=== PATIENT | male | born 1955 | race Caucasian/White ===

== ENCOUNTER 2018-02-17 17:38 | Emergency (ER) | payer OTHER ==
[~2018-02-17] VITALS: Ht 167.6 cm; Wt 81.6 kg
[2018-02-17 19:26] LABS: BASOPHILS % 0.7 % (0.0-1.0); EOSINOPHILS # (AUTO) 0.2 (0.0-0.4); EOSINOPHILS % 3.1 % (0.0-6.0); HEMATOCRIT 35.7 % (38.2-49.6); HEMOGLOBIN 11.4 g/dL (14.0-18.0); LYMPHOCYTES # (AUTO) 2.3 (1.0-3.2); LYMPHOCYTES % 37.7 % (18.0-39.1); MEAN CORPUSCULAR HEMOGLOBIN 29.9 pg (28-32); MEAN CORPUSCULAR HGB CONC 31.9 g/dL (31-35); MEAN CORPUSCULAR VOLUME 93.7 fL (81-99); MONOCYTES # (AUTO) 0.9 (0.2-0.8); NEUTROPHILS # (AUTO) 2.6 (2.1-6.9); NEUTROPHILS % 42.4 % (38.7-80.0); PLATELET COUNT 310 x10e3/uL (140-360); RED BLOOD COUNT 3.81 x10e6/uL (4.3-5.7); RED CELL DISTRIBUTION WIDTH 14.7 % (11.7-14.4)
[2018-02-17 19:29] LABS: BILIRUBIN,URINE NEGATIVE (NEGATIVE); CLARITY,URINE CLEAR (CLEAR); COLOR,URINE YELLOW (YELLOW); KETONES,URINE NEGATIVE (NEGATIVE); LEUKOCYTE ESTERASE ,URINE NEGATIVE (NEGATIVE); NITRITE,URINE NEGATIVE (NEGATIVE); PROTEIN,URINE DIPSTICK NEGATIVE (NEGATIVE); URINE UROBILINOGEN 0.2 mg/dL (0.2 - 1)
[2018-02-17 19:47] LABS: ALBUMIN/GLOBULIN RATIO 1.3 (0.8-2.0); ANION GAP 14.5 mmol/L (8-16); CALCIUM 9.5 mg/dL (8.4-10.2); CREATININE, SERUM 2.14 mg/dL (0.72-1.25); POTASSIUM 4.5 mmol/L (3.5-5.1)
[2018-02-17 21:31] VITALS: BP 146/85
== END 2018-02-17 21:39 | disposition home or self-care (01) ==
LOC: ER 17:38
DX: E86.0 Dehydration (principal); N17.9 Acute kidney failure, unspecified
CPT/HCPCS: 36415; 80053; 81001; 85025; 99283

== ENCOUNTER 2019-02-06 22:03 | Inpatient (IN) | payer MEDICARE, OTHER ==
[~2019-02-06] VITALS: Ht 167.6 cm; Wt 81.6 kg
[2019-02-06] MEDS ORDERED: SODIUM CHLORIDE 0.9% 1000ML 1,000 ML IV STA ×2 (22:06→22:52)
--- OUTSIDE RECORDS SUMMARY | 2019-02-06 22:06 | XMS REPORT | Clinical Summary ---
Author Author ARIELA [facility] Address Unknown Phone Unavailable Care Team Providers Care Cartography Teacher Name Role Phone Kun PCP Allergies No Known Allergies Medications End Date Status Medication Sig Dispensed Refills Start Date Active fenofibrate Take 160 mg 0 (TRIGLIDE,LOFIBRA) 160 MG by mouth tablet daily. Active amLODIPine (NORVASC) 5 MG Take 1 tablet 30 tablet 3 tablet (5 mg total) 6 by mouth daily. Active lisinopril Take 1 tablet 30 tablet 3 (PRINIVIL,ZESTRIL) 20 MG (20 mg total) 6 tablet by mouth daily. Active pantoprazole (PROTONIX) Take 1 tablet 60 tablet 3 40 MG tablet (40 mg total) 6 by mouth 2 (two) times daily. Active Problems Problem Noted Date Lumbar disc herniation 03/18/2016 Lumbar stenosis 03/18/2016 Spondylolisthesis of lumbar region 03/18/2016 Spondylolisthesis, lumbar region 03/18/2016 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, chronic 11/08/2015 PUD (peptic ulcer disease) 11/08/2015 ATN (acute tubular necrosis) 11/06/2015 Syncope 11/04/2015 Bradycardia 11/04/2015 Hypotension 11/04/2015 Acute renal failure (ARF) 11/04/2015 Family History Medical History Relation Name Comments Cancer Father Heart disease Mother Relation Name Status Comments Father Mother Social History Date Tobacco Use Types Packs/Day Years Used Quit: 03/18/1975 Former Smoker Smokeless Tobacco: Snuff Current User Comments: occassinally Alcohol Use Drinks/Week oz/Week Comments Yes socially Sex Assigned at Date Recorded Not on file Industry Job Start Date Occupation Not on file Not on file Not on file Travel End Travel History Travel Start No recent travel history available. Last Filed Vital Signs Not on file Plan of Treatment Not on file Implants Device Identifier Shelf Expiration Date Model / Serial / Lot Implanted Type Area Manufactur er 06/24/2017 [id number] / / [id number] Matrix Floseal Hemo W/O Ndl 10 Cement/Mandeep Left: Spine ARAUJO:BIO [id number] - [id number] ler/Adhesi Lumbar SCI Implanted: Qty: 2 on 03/18/2016 by Virginia Miller RN [id number] / / [id number] Screw Spine Left: Back [employer] Implanted: Qty: 6 on 03/18/2016 by Cayden Pichardo MD [id number] / / [id number] Oracio Spine Left: Back [employer] Implanted: Qty: 1 on 03/18/2016 by Cayden Pichardo MD [id number] / / Set Screw Spine Left: Back [employer] Implanted: Qty: 6 on 03/18/2016 by Cayden Pichardo MD 10/11/2023 [id number] / / [id number] Interbody Device Spine Left: Back [employer] Implanted: Qty: 1 on 03/18/2016 by Cayden Pichardo MD 11/12/2023 [id number] / / [id number] Interbody Device Spine Left: Back [employer] Implanted: Qty: 1 on 03/18/2016 by Cayden Pichardo MD [id number] / / [id number] Oracio Spine Left: Back [employer] Implanted: Qty: 1 on 03/18/2016 by Cayden Pichardo MD 10/11/2017 [id number] / [id number] / Orthobend Spinal Graft Tissue Left: Back [employer] Implanted: Qty: 1 on 03/18/2016 by Graft/Subs Cayden Pichardo MD titute 11/04/2017 [id number] / [id number] / Dbm Paste [place] Plus Tissue Left: Back [employer] Implanted: Qty: 1 on 03/18/2016 by Graft/Subs Cayden Pichardo MD titduy Results Not on fileafter 02/05/2018 Insurance Payer Benefit Subscriber ID Type Phone Address Plan / Group CIGNA - MGD CARE C[employer]NA [facility] xxxxxxxxxxx HMO/POS NETWORK Advance Directives For more information, please contact: [address] [address] Date Inactivated Comments Code Status Date Activated 03/24/2016 2:19 PM Full Code 03/18/2016 6:36 PM This code status was determined by: Patient 03/18/2016 6:36 PM Full Code 03/18/2016 7:08 AM This code status was determined by: Patient 11/08/2015 3:52 PM Full Code 11/04/2015 5:13 PM This code status was determined by: Patient
[2019-02-06 22:33] LABS: BASOPHILS % 0.2 % (0.0-1.0); EOSINOPHILS % 0.1 % (0.0-6.0); HEMATOCRIT 41.7 % (38.2-49.6); HEMOGLOBIN 13.9 g/dL (14.0-18.0); LYMPHOCYTES # (AUTO) 1.7 (1.0-3.2); LYMPHOCYTES % 13.5 % (18.0-39.1); MEAN CORPUSCULAR HEMOGLOBIN 29.6 pg (28-32); MEAN CORPUSCULAR HGB CONC 33.3 g/dL (31-35); MEAN CORPUSCULAR VOLUME 88.9 fL (81-99); MONOCYTES # (AUTO) 1.3 (0.2-0.8); MONOCYTES % 10.2 % (4.4-11.3); NEUTROPHILS # (AUTO) 9.8 (2.1-6.9); NEUTROPHILS % 75.5 % (38.7-80.0); PLATELET COUNT 328 x10e3/uL (140-360); RED BLOOD COUNT 4.69 x10e6/uL (4.3-5.7); RED CELL DISTRIBUTION WIDTH 15.5 % (11.7-14.4)
--- NOTE | 2019-02-06 22:51 | Diagnostic Imaging Report ---
History: Disoriented Comparison studies: None Technique: Axial images were obtained from the skull base to the vertex. Coronal and sagittal reconstructions obtained from the axial data. Dose modulation, iterative reconstruction, and/or weight based adjustment of the mA/kV was utilized to reduce the radiation dose to as low as reasonably achievable. Intravenous contrast: None Findings: Scalp/skull: No abnormalities. No fractures, blastic or lytic lesions. Extra-axial spaces: No masses. No fluid collections. Brain sulci: Appropriate for age. Ventricles: Normal in size and configuration. No hydrocephalus. Parenchyma: No abnormal densities. No masses, hemorrhage, acute or chronic cortical vascular insults. Sellar/suprasellar region: No abnormalities Craniocervical junction: Patent foramen magnum. No Chiari one malformation. Incidental findings: None. IMPRESSION: No abnormalities. Signed by: Dr. Phillip Garcia M.D. on 02/06/2019 10:48 PM
[2019-02-06 22:56] LABS: CREATINE KINASE MB 38.6 ng/mL (0-5.0)
[2019-02-06 22:59] LABS: ALBUMIN 4.8 g/dL (3.5-5.0); ALBUMIN/GLOBULIN RATIO 1.2 (0.8-2.0); ANION GAP 24.9 mmol/L (8-16); CALCIUM 10.4 mg/dL (8.4-10.2); CREATININE, SERUM 5.82 mg/dL (0.72-1.25); POTASSIUM 3.9 mmol/L (3.5-5.1)
[2019-02-07] MEDS ORDERED: MORPHINE SULFATE 2 MG/ML SYR 1ML IV PRN
[2019-02-07] MEDS: SODIUM CHLORIDE 0.9% 1000ML 1,000 ML IV SCH ×2 (01:19→09:02)
--- OUTSIDE RECORDS SUMMARY | 2019-02-07 01:24 | XMS REPORT ---
Author Author [facility] Address Unknown Phone Unavailable Care Team Providers Care Blocker Polishing Name Role Phone SUMEET SÁNCHEZ Unavailable Unavailable Problems This patient has no known problems. Allergies, Adverse Reactions, Alerts This patient has no known allergies or adverse reactions. Medications This patient has no known medications. Results Test Description Test Time Test Comments Text Results Atomic Results Result Comments CT BRAIN WO 2019-02-06 22:35:00 [place] [address] Patient Name: TESFAYE HOWARD MR #: [id number] : 1955 Age/Sex: 63/M Req #: [id number] Adm Physician: Ordered by: SUMEET SÁNCHEZ DO Report #: [id number] Location: ER Room/Bed: Procedure: [id number] CT/CT BRAIN WO Exam Date: 02/06/19 Exam Time: 2218 REPORT STATUS: Signed History: Disoriented Comparison studies: None Technique: Axial images were obtained from the skull base to the vertex. Coronal and sagittal reconstructions obtained from the axial data. Dose modulation, iterative reconstruction, and/or weight based adjustment of the mA/kV was utilized to reduce the radiation dose to as low as reasonably achievable. Intravenous contrast: None Findings: Scalp/skull: No abnormalities. No fractures, blastic or lytic lesions. Extra-axial spaces: No masses. No fluid collections. Brain sulci: Appropriate for age. Ventricles: Normal in size and configuration. No hydrocephalus. Parenchyma: No abnormal densities. No masses, hemorrhage, acute or chronic cortical vascular insults. Sellar/suprasellar region: No abnormalities Craniocervical junction: Patent foramen magnum. No Chiari one malformation. Incidental findings: None. IMPRESSION: No abnormalities. Signed by: Dr. Phillip Garcia M.D. on 02/06/2019 10:48 PM Dictated By: PHILLIP GARCIA MD, MD 47 Transcribed By: SLAVA on 02/06/192247 COPY TO: SUMEET SÁNCHEZ DO
--- OUTSIDE RECORDS SUMMARY | 2019-02-07 01:24 | XMS REPORT | Clinical Summary ---
Author Author ARIELA [facility] Address Unknown Phone Unavailable Care Team Providers Care Hand Assembler For Puller Over Name Role Phone Kun PCP Allergies No [...] Lot Implanted Type Area Manufactur er 06/24/2017 [id number] / / [id number] Matrix Floseal Hemo W/O Ndl 10 Cement/Mandeep Left: Spine ARAUJO:BIO [id number] - [id number] ler/Adhesi Lumbar SCI Implanted: Qty: 2 on 03/18/2016 by Virginia Miller RN [id number] / / [id number] Screw Spine Left: Back [employer] Implanted: Qty: 6 on 03/18/2016 by Cayden Pichardo MD [id number] / / [id number] Oracio Spine Left: Back [employer] Implanted: Qty: 1 on 03/18/2016 by Cayden Pichardo MD [id number] / / Set Screw Spine Left: Back [employer] Implanted: Qty: 6 on 03/18/2016 by Cayden Pichardo MD 10/11/2023 [id number] / / [id number] Interbody Device Spine Left: Back [employer] Implanted: Qty: 1 on 03/18/2016 by Cayden Pichardo MD 11/12/2023 [id number] / / [id number] Interbody Device Spine Left: Back [employer] Implanted: Qty: 1 on 03/18/2016 by Cayden Pichardo MD [id number] / / [id number] Oracio Spine Left: Back [employer] Implanted: Qty: 1 on 03/18/2016 by Cayden Pichardo MD 10/11/2017 [id number] / [id number] / Orthobend Spinal Graft Tissue Left: Back [employer] Implanted: Qty: 1 on 03/18/2016 by Graft/Subs Cayden Pichardo MD titute 11/04/2017 [id number] / [id number] / Dbm Paste [place] Plus Tissue Left: Back [employer] Implanted: Qty: 1 on 03/18/2016 by Graft/Subs Cayden iPchardo MD titduy Results Not on fileafter 02/06/2018 Insurance Payer Benefit Subscriber ID Type Phone Address Plan / Group CIGNA - MGD CARE CIGNA [facility] xxxxxxxxxxx HMO/POS NETWORK Advance Directives For more information, please contact: [address] [address] Date Inactivated Comments Code Status Date Activated 03/24/2016 2:19 PM Full Code 03/18/2016 6:36 PM This code status was determined by: Patient 03/18/2016 6:36 PM Full Code 03/18/2016 7:08 AM This code status was determined by: Patient 11/08/2015 3:52 PM Full Code 11/04/2015 5:13 PM This code status was determined by: Patient
[2019-02-07] MEDS ORDERED: LORAZEPAM INJ 2 MG/ML VIAL IV ONE (01:30)
--- NOTE | 2019-02-07 01:35 | Diagnostic Imaging Report ---
EXAMINATION: CHEST SINGLE (PORTABLE) INDICATION: Altered mental status COMPARISON: None FINDINGS: AP view TUBES and LINES: None. LUNGS: Lungs are well inflated. Lungs are clear. Prominent central pulmonary vasculature. PLEURA: No pleural effusion or pneumothorax. HEART AND MEDIASTINUM: Cardiac size is mildly enlarged. BONES AND SOFT TISSUES: Soft tissues are unremarkable. Suspect vertebral body compression deformities in the lower thoracic spine. UPPER ABDOMEN: No free air under the diaphragm. IMPRESSION: Mild cardiomegaly and central pulmonary vascular congestion. Suspect vertebral body compression deformities in the lower thoracic spine. Signed by: Beto Kan DO on 02/07/2019 1:32 AM
--- NOTE | 2019-02-07 03:45 | NUR ---
PT PLACED IN HOSPITAL BED AND MOVED TO ROOM 3 FOR COMFORT;
[2019-02-07 04:51] LABS: AMPHETAMINES SCREEN,URINE NEGATIVE (NEGATIVE); BENZODIAZEPINES SCREEN,URINE POSITIVE (NEGATIVE); PHENCYCLIDINE SCREEN,URINE NEGATIVE (NEGATIVE)
[2019-02-07 05:09] LABS: CREATINE KINASE MB 24.9 ng/mL (0-5.0)
--- NOTE | 2019-02-07 07:50 | NUR ---
on hospital bed
[2019-02-07 08:25] LABS: BASOPHILS % 0.1 % (0.0-1.0); EOSINOPHILS % 0.4 % (0.0-6.0); HEMATOCRIT 36.8 % (38.2-49.6); HEMOGLOBIN 12.2 g/dL (14.0-18.0); LYMPHOCYTES # (AUTO) 1.8 (1.0-3.2); LYMPHOCYTES % 18.2 % (18.0-39.1); MEAN CORPUSCULAR HEMOGLOBIN 30.1 pg (28-32); MEAN CORPUSCULAR HGB CONC 33.2 g/dL (31-35); MEAN CORPUSCULAR VOLUME 90.9 fL (81-99); MONOCYTES # (AUTO) 1.1 (0.2-0.8); MONOCYTES % 11.5 % (4.4-11.3); NEUTROPHILS # (AUTO) 6.9 (2.1-6.9); NEUTROPHILS % 69.3 % (38.7-80.0); PLATELET COUNT 303 x10e3/uL (140-360); RED BLOOD COUNT 4.05 x10e6/uL (4.3-5.7); RED CELL DISTRIBUTION WIDTH 15.6 % (11.7-14.4)
[2019-02-07 09:40] LABS: BILIRUBIN,URINE NEGATIVE (NEGATIVE); CLARITY,URINE SL CLOUDY (CLEAR); COLOR,URINE YELLOW (YELLOW); KETONES,URINE NEGATIVE (NEGATIVE); LEUKOCYTE ESTERASE ,URINE NEGATIVE (NEGATIVE); NITRITE,URINE NEGATIVE (NEGATIVE); PROTEIN,URINE DIPSTICK NEGATIVE (NEGATIVE); URINE UROBILINOGEN 0.2 mg/dL (0.2 - 1)
--- NOTE | 2019-02-07 09:42 | NUR ---
ABG VALUES NORMAL. OK TO GO TO MRI
[2019-02-07 09:49] LABS: ALBUMIN 4.1 g/dL (3.5-5.0); ALBUMIN/GLOBULIN RATIO 1.5 (0.8-2.0); ANION GAP 18.8 mmol/L (8-16); CALCIUM 8.7 mg/dL (8.4-10.2); CREATININE, SERUM 4.62 mg/dL (0.72-1.25); POTASSIUM 3.8 mmol/L (3.5-5.1)
[2019-02-07] MEDS ORDERED: ALBUTEROL/IPRATROPIUM 3 ML NEB ONE (09:54)
[2019-02-07 09:59] LABS: BACTERIA,URINE RARE /HPF; EPITHELIAL CELLS,URINE FEW /LPF
[2019-02-07] MEDS ORDERED: ALBUTEROL/IPRATROPIUM 3 ML NEB NEB SCH (10:00)
[2019-02-07 10:21] LABS: ABG HCO3 22 mmol/L (23-28); ABG PCO2 44 mmHg (41-51); ABG PH 7.31 (7.31-7.41); ABG PO2 100 mmHg (80-105)
[2019-02-07] MEDS ORDERED: ACETAMINOPHEN 325 MG TAB PO PRN (10:30)
--- NOTE | 2019-02-07 11:51 | Diagnostic Imaging Report ---
EXAM: Renal Ultrasound INDICATION: ^ACUTE KIDNEY FAILURE COMPARISON: None TECHNIQUE: Transverse and longitudinal images of the kidneys and bladder were obtained. FINDINGS: Right Kidney: Length: 11.2 cm Appearance: Normal echogenicity. Collecting system: No hydronephrosis Stones: None Cyst/Mass: None Left Kidney: Length: 10.7 cm Appearance: Normal echogenicity. Collecting system: No hydronephrosis Stones: None Cyst/Mass: None Bladder: No mass or calculi. Bilateral ureteral jets seen. Prevoid volume estimate of 272.3 cc The prostate measures 5.7 x 4.4 x 4.0 cm with a volume estimate of 51.8 cc IMPRESSION: No hydronephrosis or renal calculi. Prostatomegaly. Signed by: Trinity Johnson MD on 02/07/2019 11:48 AM
--- NOTE | 2019-02-07 12:05 | NUR ---
FAMILY UPDATED ON POC/PENDING ADMIT
[2019-02-07] MEDS ORDERED: HYDRALAZINE HCL 20 MG/ML VIAL IV ONE (12:30)
--- NOTE | 2019-02-07 12:44 | NUR ---
PT UNABLE TO COME OFF BIPAP; MRI POST-PONED
--- NOTE | 2019-02-07 13:31 | NUR ---
dr. rosas notified of consult and will see the pt. this afternoon. dr. sterling here now to see the pt. and spoke with family
--- NOTE | 2019-02-07 14:04 | NUR ---
MRI TO BE DONE IN THE MORNING PER DR. GILL. MRI DEPT. WAS CALLED AND NOITIFED
--- NOTE | 2019-02-07 14:25 | NUR ---
DR. PRINCE AT BEDSIDE FOR PT EVAL.
--- NOTE | 2019-02-07 14:53 | NUR ---
16 FR KENNY INSERTED PER DR. PRINCE'S ORDERS
[2019-02-07] MEDS: SODIUM BICARBONATE 8.4% SYRING 150 ML in DEXTROSE 5% 1,000 ML IV SCH ×2 (15:30→19:02)
[2019-02-07 15:34] LABS: ACETAMINOPHEN < 3 ug/mL (10-30); SALICYLATE < 5.0 mg/dL (0-30)
[2019-02-07] MEDS ORDERED: DEXTROSE 5% 1,000 ML IV ONE (15:49)
--- NOTE | 2019-02-07 16:10 | History and Physical ---
PRIMARY CARE DOCTOR: Lionel Topete MD, at [facility]. CHIEF COMPLAINT: Altered mental status and rhabdomyolysis. HISTORY OF PRESENT ILLNESS: This is a 63-year-old male with past medical history of hypertension and chronic back pain and headache, presented to the ER with complaints of altered mental status and increased lethargy. The patient at time of assessment was sedated after getting Ativan 2 mg overnight. So, most of the HPI information is obtained from his daughter, Sharifa Peguero at the bedside. She reports that he was at [place] for a deer lease two days ago and yesterday, he had called his daughter and his son to come and get him because he was not feeling well. When family at [place] to pick him up, he was sleeping in the back of his car, complaining of vision changes and very lethargic. He was also complaining of right groin pain and leg cramping, so they took him to the house because he refused to go to hospital in [place]. Upon arrival to the house, he continued to be lethargic, he checked his blood pressure was elevated initially, so they brought him in for further workup. No reports of nausea, vomiting, chest pain, shortness of breath, use of alcohol or other street drugs. The daughter also reports no focal weakness or headache. In the ER, his white count was 12.93, hemoglobin 13.9, hematocrit 41.7, and platelets 328. Sodium was 137, potassium 3.9, BUN 37, creatinine 5.82, GFR 10, AST 264, ALT 88, CK 7251, troponin 0.091, and lipase 73. UA was cloudy, no leukocyte with 6 to 10 wbc's and rare bacteria. UDS was positive for opiates and benzos. Alcohol level was less than 10. A chest x-ray showed mild cardiomegaly and central pulmonary vascular congestion. CT brain was negative. He was started on IV fluid bolus and admitted for further management. PAST MEDICAL HISTORY: 1. Chronic back pain and headache. 2. Hypertension. PAST SURGICAL HISTORY: 1. Multiple back surgeries. 2. Left hand amputation and replacement. 3. Vasectomy. FAMILY MEDICAL HISTORY: Mother had heart disease, CHF, and diabetes. His father of bladder cancer. SOCIAL HISTORY: They report smokes occasionally when he is out drinking or gambling, drinks occasionally as well, and denies any illicit drug use. He is retired, living with his girlfriend. REVIEW OF SYSTEMS: Unable to obtain because the patient is with altered mental status and sedated. PHYSICAL ASSESSMENT: VITAL SIGNS: Temperature 98.6, pulse is 69, respirations 16, and blood pressure is 127/72. GENERAL: He is sedated. HEENT: Normocephalic and atraumatic. LUNGS: Clear to auscultation. CARDIOVASCULAR: Normal rate and rhythm. GI: Abdomen is soft and nontender. NEURO: He has altered mental status. MUSCULOSKELETAL: Moves all extremities. SKIN: Dry. Noted a rash in the right groin area. LABORATORY DATA: Lab see HPI. IMAGING DATA: See HPI. IMPRESSION: 1. Altered mental status, likely due to dehydration. 2. Rhabdomyolysis. 3. Acute kidney failure. 4. Hypertension. 5. Mild leukocytosis. 6. Chronic back pain. PLAN: We will continue with IV fluid hydration. Renal ultrasound was unremarkable. We will discontinue Ativan and hold off on any sedative medications. Continue with BiPAP. Nephrology is consulted and appreciate his input. We will repeat labs in the a.m. Dictated by ORION Albright Ying Zafar MD MY/MODL /[id number]
[2019-02-07] MEDS ORDERED: FAMOTIDINE 20 MG TAB PO SCH (16:30)
--- NOTE | 2019-02-07 17:26 | NUR ---
pt assigned rm [id number] when clean
[2019-02-07] MEDS ORDERED: LIDOCAINE HCL 2% LOCAL INJ 5 ML SDV VIAL INJ ONE (19:01)
[2019-02-07] MEDS ORDERED: GLYCOPYRROLATE INJ 1MG/ 5 ML SYR ONE (19:01)
[2019-02-07] MEDS ORDERED: CEFAZOLIN SOD 1 GM VIAL ONE (19:01)
[2019-02-07] MEDS ORDERED: ROCURONIUM BROMIDE 10 MG/ML 5ML VIAL ONE (19:01)
[2019-02-07] MEDS ORDERED: PROPOFOL IV EMULSION 10 MG/ML 20 ML VIAL ONE (19:01)
[2019-02-07] MEDS ORDERED: DEXAMETHASONE SOD PHOS INJ 4 MG/ML VIAL ONE (19:01)
[2019-02-07] MEDS ORDERED: NEOSTIGMINE 5 MG/5ML SYR ONE (19:01)
[2019-02-07] MEDS ORDERED: DESFLURANE 240 ML BTL INH ONE (19:01)
[2019-02-07] MEDS ORDERED: ONDANSETRON HCL INJ 2MG/ML 2ML 2 MG/ML VIAL ONE (19:01)
[2019-02-07] MEDS ORDERED: ACETAMINOPHEN 1000 MG/100 ML IV ONE (19:01)
[2019-02-07 20:09] VITALS: BP 131/54
[2019-02-07] MEDS ORDERED: AMLODIPINE BESYL5 MG PO (20:30)
[2019-02-07] MEDS ORDERED: MELATONIN3 M1 PO (20:30)
[2019-02-07] MEDS ORDERED: MULTI-VITAMIN1 EACH PO (20:30)
[2019-02-07] MEDS ORDERED: LISINOPRIL2.5 MG PO (20:30)
[2019-02-07] MEDS ORDERED: BENADRYL25 M1 PO (20:30)
[2019-02-07] MEDS ORDERED: OCUVITE LUTEIN1 EACH PO (20:30)
[2019-02-07] MEDS ORDERED: FENOFIBRATE145 MG PO (20:30)
[2019-02-07] MEDS ORDERED: BACLOFEN10 MG PO (20:30)
[2019-02-07] MEDS ORDERED: B-121000 MCG PO (20:30)
[2019-02-07] MEDS ORDERED: NORCO 10-325 T1 EACH PO (20:30)
[2019-02-07] MEDS ORDERED: GABAPENTIN300 MG PO (20:30)
[2019-02-07] MEDS ORDERED: OMEPRAZOLE20 M1 PO (20:30)
[2019-02-07 20:31] VITALS: BP 131/54
[2019-02-07 20:32] VITALS: BP 131/54
[2019-02-07] MEDS: MORPHINE SULFATE INJ 4 MG/ML INJ 1ML IV PRN (21:00)
[2019-02-07 21:09] VITALS: BP 131/54
--- NOTE | 2019-02-07 23:17 | Consultation ---
DATE OF CONSULTATION: History predominantly from the patient's daughter, girlfriend, and son. HISTORY OF PRESENT ILLNESS: 63-year-old gentleman who has no prior history of any renal insufficiency, but has a prostate problem, who with a history of hypertension. No history of diabetes. History of back surgery and a history of possible renal insufficiency, exact degree of renal failure, unclear, who presented with altered mental status. Apparently, he was feeling a bit disoriented. He went to see his primary and he had pain in his right groin area and low backache. The patient went to see primary, did send a urine culture, told him this urine culture was okay. The patient in the mean time acquired a deer lease and headed out towards his leased property, but all the way she felt disoriented. Called up his son to come pick him up. The son found him and drove him back, but still the patient remained disoriented and had some involuntary movements involving his right upper extremity, some amount of weakness in his extremities. Currently, he is on BiPAP in the ER. He opens his eyes. He answers appropriately or tries to answer, very poor historian at this point in time, very drowsy though. There is no neuromuscular irritability or abnormal motor movements noticed. Labs show white count of 9.9 and hemoglobin 12.2. Chemistries show potassium 3.8, bicarbonate 21, BUN 34, creatinine 4.6, and his glucose is 106. His lactic acid is 9.9, calcium 8.7. Total bilirubin is 0.7, AST 222, ALT 77 with a CK of 7251, lipase of 73. Workup included CT brain which was negative. Kidney ultrasound shows prostatomegaly with 11.2 and 10.7 cm kidneys. He had a chest x-ray, please see official report, shows mild scheduled cardiomegaly with central pulmonary vascular congestion. Please see full report. ALLERGIES: CURRENTLY, THERE ARE NO ALLERGIES REPORTED. CURRENT MEDICATIONS: The patient is on normal saline at 125 mL an hour. He received 2 L of normal saline boluses. He is on albuterol Atrovent nebulizer. He is on lorazepam p.r.n., morphine p.r.n., and ondansetron p.r.n. According to the patient's girlfriend, the patient takes Tylenol on a regular basis, sometimes 3 tablets, sometimes no. He takes baclofen twice a day. He takes Neurontin 3 times a day. Besides that, he takes multivitamins over the counter. He also takes blood pressure medication. SOCIAL HISTORY: The patient used to smoke on a regular basis, possibly has COPD, right now occasionally smokes and occasionally drinks. Family denies any substance abuse. PHYSICAL EXAMINATION: GENERAL: On exam, the patient is on BiPAP, arousable, follows commands to some extent. VITAL SIGNS: Blood pressure 118/85, pulse rate 74, afebrile, respiratory rate 12 with oxygen saturation 100%. HEAD AND NECK: Cornea clear. No icterus. BiPAP noted. Neck veins distended. LUNGS: Clear. No rales. HEART: S1 and S2 audible. ABDOMEN: Soft and nontender. EXTREMITIES: Lower extremity examination shows no edema. IMPRESSION: Acute kidney injury, possible acute tubular necrosis, possible rhabdomyolysis with mild metabolic acidosis. PLAN: Agree with fluid challenge. I will send a urine drug screen, Tylenol level, alcohol level, and aspirin level. I will start D5 with 3 amps of sodium bicarbonate. Attempt to alkalinize urine at 150 mL an hour. We will have a 16-Iranian Trejo catheter placed for better I's and O's. I believe we may be dealing with cumulative effect and side effects of Neurontin, Tylenol, gabapentin, and hydrocodone. The patient also takes hydrocodone on a regular basis. LFTs noted. Tylenol level awaited. Please see orders. MD BETTINA Barry/MONE /[id number]
[2019-02-08] VITALS (8 sets, daily range): BP systolic 118–130; BP diastolic 60–84
[2019-02-08] MEDS: ALBUTEROL SULF 0.083% NEB SOLN 3 ML NEB NEB SCH ×4 (01:08→19:37)
[2019-02-08] MEDS: SODIUM BICARBONATE 8.4% SYRING 150 ML in DEXTROSE 5% 1,000 ML IV SCH ×3 (04:54→19:07)
--- NOTE | 2019-02-08 05:37 | Consultation ---
DATE OF CONSULTATION: 02/07/2019 Neurology Consult Note HISTORY OF PRESENT ILLNESS: Mr. Rush is a 63-year-old right-hand dominant man with past medical history significant for hypertension, chronic low back pain, and multiple prior episodes of heat exhaustion and heat stroke, admitted [facility] as an inpatient on February 07, 2019, with rhabdomyolysis, acute kidney injury, and confusion. Unfortunately, due to the patient's encephalopathy, he is unable to provide multiple elements of the medical history. History is obtained from the patient's daughter, who is at the bedside. According to Mr. 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 On the day prior to admission, at approximately 0900, the patient spoke to his girlfriend. He reportedly sounded normal at that time. Mr. Rush's girlfriend next heard from him at approximately 1400. At this time, the patient was disoriented. He told his girlfriend he was "very hot" because the air conditioning unit in his deer lease had gone out. Mr. Rush told his girlfriend he was going to sit in his truck to "cool down." At approximately 1700 the same day, the patient called his son and asked him to come pick him up at a gas station outside of [place]. Apparently, Mr. Rush drove his truck to this gas station. While he was driving, the patient reportedly noted diplopia and had difficulty staying in his designated paige. As the patient's son and daughter drove to [place], other family members who live nearby found the patient at the gas station. He was lying in the back of his truck, which was running, poorly responsive. The patient's daughter recommended Mr. Rush to be taken to a hospital in [place] for further evaluation and treatment. However, the patient refused. Mr. Rush stated he would not come to a hospital unless he was at home in [place], [place]. As stated above, Mr. Rush has experienced similar symptoms on multiple past occasions. According to his daughter, when at his deer lease, the patient drinks only Dr Pepper, and possibly beer. He does not drink water. When asked if the air conditioning unit in her father's deer lease had been out for a while, the patient's daughter responds in the negative. She reports this must have happened recently. When asked if it was likely her father was performing any strenuous activity at the deer lease, the patient's daughter responds in the negative. Due to the patient's chronic low back pain, he hardly ever participates in physically demanding activities. Upon reaching [place], [place], Mr. Rush was brought to the emergency center at [facility] for further evaluation of his symptoms. Upon arrival, the patient was afebrile with a blood pressure of 114/69 mmHg and a pulse of 78 beats per minute. Documentation of the patient's examination in the emergency center is unavailable for review at this time. Routine blood and urine studies revealed an elevated BUN of 37 with a creatinine of 5.82 and an estimated GFR of 10. AST and ALT were elevated as well. The patient's muscle enzymes were found to be markedly elevated. A CBC with differential and platelets revealed a mildly elevated white blood cell count with a right shift. A urinalysis revealed slightly cloudy urine with 6 to 10 red blood cells, 6 to 10 white blood cells, and few epithelial cells with rare bacteria. A urine drug screen was positive for opiates and benzodiazepines. While in the emergency center, a CT of the brain without contrast was performed. There was no evidence of recent large territorial ischemia or hemorrhage on this study. Due to the presenceof dehydration, rhabdomyolysis, acute kidney injury, and respiratory distress necessitating treatment with BiPAP, Mr. Rush was subsequently admitted to the intermediate medical care unit for further evaluation and treatment of his symptoms. REVIEW OF SYSTEMS: Unable to obtain secondary to the patient being encephalopathic. PAST MEDICAL HISTORY: Hypertension, chronic low back pain. PAST SURGICAL HISTORY: Multiple lumbar spine surgeries, vasectomy, left hand amputation and reattachment. PAST HOSPITALIZATIONS: Surgeries/procedures as listed, multiple hospitalizations for heat exhaustion and heat stroke. FAMILY MEDICAL HISTORY: The patient's father is from bladder cancer. His mother is as well. The patient's mother had a medical history of diabetes mellitus, coronary artery disease, and congestive heart failure. SOCIAL HISTORY: Mr. Rush is , then subsequently . He lives with a girlfriend at present. The patient is retired. Mr. Rush smokes and drinks socially. There is no reported current or prior recreational drug use. HOME MEDICATIONS: Hydrocodone/acetaminophen 1 tablet by mouth every 6 hours as needed for pain, gabapentin 300 mg by mouth 3 times daily, amlodipine 1 tablet by mouth daily, baclofen 10 mg by mouth 4 times a day, fenofibrate 160 mg by mouth daily, lisinopril 2.5 mg by mouth daily, diphenhydramine 25 mg by mouth twice daily, omeprazole 20 mg by mouth daily, multivitamin one tablet by mouth daily, cranberry supplement, vitamin B12 supplement, vitamin C supplement, joint health supplement, potassium, and melatonin. HOSPITAL MEDICATIONS: Acetaminophen, Spencer, morphine, Zofran, sodium bicarbonate, and dextrose. ALLERGIES: NO KNOWN DRUG ALLERGIES. NO KNOWN FOOD ALLERGIES. NO KNOWN ALLERGIES TO LATEX. NO KNOWN ALLERGIES TO IODINE OR OTHER CONTRAST MATERIALS. PHYSICAL EXAMINATION: VITAL SIGNS: Height 66 inches, weight 180 pounds, BMI 29.1 kg/m2, blood pressure 108/65 mmHg, pulse 53 beats per minute, respiratory rate 12 breaths per minute, and oxygen saturation 100% on BiPAP. GENERAL: The patient is drowsy, but opens his eyes to repeated verbal stimulation. He does not appear distressed. Overweight. HEENT: Normocephalic, atraumatic. Pupils are equal, round, and sluggishly reactive to light. Moist mucous membranes. NECK: Supple. No appreciable thyromegaly. No appreciable carotid bruits. CARDIOVASCULAR: S1 and S2, bradycardic, regular rhythm. No murmurs, rubs, or gallops. RESPIRATORY: Clear to auscultation bilaterally. No wheezes, rhonchi, or rales. EXTREMITIES: No clubbing, cyanosis, or edema. The posterior tibial and dorsalis pedis pulses are 1+ and symmetric. SKIN: No rashes or lesions. NEUROLOGIC: Memory/Attention: The patient is drowsy, but arouses to repeated verbal stimulation. Mr. Rush is oriented to person, place ([facility], [facility], state), time (day of the week, month, year), and situation. The patient is able to consistently follow simple commands. CRANIAL NERVES: Cranial nerve I-not tested. Cranial nerves II, III, IV, and -pupils are equal and round, and sluggishly reactive to light (from 4 mm to 2 mm). Extraocular movements are intact. No nystagmus. Cranial nerve V-sensation to light touch is intact in the bilateral V1 through V3 distributions. Strength in the temporalis and masseter muscles within normal limits. Cranial nerve VII-the face is symmetric as are all facial movements. Cranial nerve VIII-hearing is intact to finger rub bilaterally. Cranial nerve IX, X-the soft palate elevates equally and symmetrically. Cranial nerve XII-the tongue protrudes midline and moves symmetrically from [id number]. STRENGTH: Bulk is normal. Strength is 5/5 in the bilateral deltoids, biceps, triceps, wrist flexors and extensors, finger flexors and extensors, intrinsic hand muscles, hip flexors, knee flexors and extensors, ankle dorsiflexion and plantar flexion, and intrinsic foot muscles. Tone is normal. DTRS: Deep tendon reflexes are 1+ and symmetric at the triceps, biceps, and brachioradialis. Deep tendon reflexes are trace and symmetric at the patellas. Deep tendon reflexes are absent and symmetric at the Achilles. Plantar responses are flexor bilaterally. SENSATION: Sensation is intact to light touch in both arms and both legs. CEREBELLAR: Unable to assess secondary to the patient being encephalopathic and unable to follow complex commands. GAIT: Deferred. SPEECH: Spontaneous speech is mildly dysarthric without aphasia. Repetition is intact. INVOLUNTARY MOVEMENTS: None. PRONATOR DRIFT: None. LABORATORY DATA: The most recent comprehensive metabolic panel is significant for carbon dioxide of 21, anion gap of 18.8, BUN of 34, creatinine of 4.62, GFR of 13, AST of 222, and ALT of 77. Lactic acid 9.9. Creatine kinase 7251, 5715. CK-MB 38.60, 24.90. Troponin-I 0.091, 0.099. Lipase 73. The CBC with differential and platelets reveals a white blood cell count of 9.94 with 69.3% neutrophils, 18.2% lymphocytes, 11.5% monocytes, 0.4% eosinophils, and 0.1% basophils. The hemoglobin and hematocrit are 12.2 and 36.8, respectively. The platelet count is 303. An arterial blood gas revealed a pH of 7.31, pCO2 of 44, PO2 of 100, bicarbonate of 22, O2 saturation of 97.0, base excess of -4.0, and FiO2 of 28. A urinalysis reveals slightly cloudy urine with 6 to 10 red blood cells and 6 to 10 white blood cells. A urine drug screen was positive for opiates and benzodiazepines. Ethyl alcohol less than 10.0. Salicylates less than 5.0. Acetaminophen less than 3. DIAGNOSTIC STUDIES: EKG on 02/06/2019: Sinus bradycardia at 56 beats per minute with sinus arrhythmia. Left ventricular hypertrophy. Left anterior fascicular block. Chest x-ray on 02/06/2019: Mild cardiomegaly and central pulmonary vascular congestion. Suspected vertebral body compression deformities in the lower thoracic spine. CT of the brain without contrast on 02/06/2019: On my review, there is no evidence of recent or remote large territorial ischemia, hemorrhage, mass, or mass effect. Cerebral volumes are appropriate for age. There are no findings suspicious for chronic small-vessel ischemic disease. Renal ultrasound on 02/07/2019: No hydronephrosis or renal calculi. Prostatomegaly. ASSESSMENT AND PLAN: Mr. Rush is a 63-year-old right-hand dominant man with past medical history as detailed, admitted to [facility] with encephalopathy, elevated muscle enzymes consistent with rhabdomyolysis, acute kidney injury, and elevated liver enzymes. The patient has undergone a thorough neurological examination with findings detailed above. Mr. Rush's laboratory data and other diagnostic studies have been reviewed and are documented above. Mr. Rush has a multifactorial metabolic encephalopathy due to: Dehydration, rhabdomyolysis, acute kidney injury, probably secondary to rhabdomyolysis, elevated liver enzymes, and medication effect (opiates and benzodiazepines). RECOMMENDATIONS: Are as follows: 1. The MRI of the brain without contrast will be canceled. Completion of this study will add nothing further to the evaluation or treatment of Mr. Rush. 2. Continue treatment for dehydration, rhabdomyolysis, acute kidney injury, etc. 3. Avoid sedative/hypnotic and pain medications as these will alter the patient's sensorium. 4. Utilize environmental cues to limit delirium. 5. Defer treatment of the remaining medical comorbidities to the primary and other services following the patient. Thank you for this consultation. There are no other recommendations from the Neurology Service at this time. Please call again with any questions or concerns. TIME SPENT: 50 minutes. Perla Jackson MD CP/MONE /[id number] [email or web address]
[2019-02-08 06:07] LABS: ALBUMIN 3.2 g/dL (3.5-5.0); BILIRUBIN,DIRECT 0.4 mg/dL (0.0-0.5)
[2019-02-08] MEDS: MORPHINE SULFATE INJ 4 MG/ML INJ 1ML IV PRN ×4 (06:37→23:34)
--- NOTE | 2019-02-08 06:51 | Diagnostic Imaging Report ---
Examination: Single AP view of the chest. COMPARISON: Portable chest 02/06/2019 INDICATION: Shortness of breath, CHF, weakness IMPRESSION: 1. Lines and Tubes: None 2. Lungs are grossly clear. No consolidation or effusion. 3. Cardiomediastinal silhouette is normal. Pulmonary vasculature is normal. 4. No acute bony abnormalities. Signed by: Dr. Regino Burns M.D. on 02/08/2019 6:48 AM
--- NOTE | 2019-02-08 07:28 | Consultation ---
DATE OF CONSULTATION: 02/07/2019 Pulmonary Medicine Consult REASON FOR REFERRAL: Sleep apnea. HISTORY OF PRESENT ILLNESS: Mr. Rush is a pleasant 63-year-old gentleman with sleep apnea. The patient presented to [facility] on February 06, 2019, with altered mental status. The patient having lethargy. 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 The daughter provides majority of the history and states the patient likely got dehydrated due to his working behavior. The patient was found by family sleeping back of his car and complaining of vision changes and lethargy. He also had additional cramping to the legs. The patient was therefore brought to the emergency room for further evaluation as he did not readily get better. In the emergency room, though white count was 13,000, BUN of 37, creatinine 5.8. AST 264, ALT 88, CK 7251. Urinalysis was cloudy with 2-10 white blood cells. The patient came to emergency room. Chest x-ray suggestive of bilateral lung atelectasis, mild venous hyperemia, borderline inspiration. The patient was noted with sleepiness and significant sleep apnea demeanor, for which he has a history. Per family, he is on CPAP at high settings due to very bad sleep apnea, for which further details are unknown. Urinary drug screen was positive for opiates and benzodiazepines. Alcohol level was less than 10. I am consulted. The patient was noted with IPAP of 25 and EPAP of 10 cm water with frequent apnea events. PAST MEDICAL HISTORY: Obstructive sleep apnea reported on home positive airway pressure therapy. Chronic back pain and headaches. Hypertension. Multiple back surgeries. Left hand surgery. MEDICATIONS: Medication list reviewed per the chart record. ALLERGIES: NO KNOWN DRUG ALLERGIES. SOCIAL HISTORY: The patient's family cites no smoking, no drugs. Only social alcohol, never a problem. The patient living independently with his girlfriend. The patient was driving up until yesterday. FAMILY HISTORY: Noncontributory. REVIEW OF SYSTEMS: Not able to get as he is on respiratory support devices and somnolent, lethargic. OBJECTIVE: VITAL SIGNS: Vital signs noted and reviewed per the chart record. GENERAL: He awakens on moderate stimulant, but he goes back to sleep readily within a couple of seconds. He is on BiPAP with full face mask delivery. HEENT: Normocephalic and atraumatic. NECK: Supple. Throat midline. LUNGS: Bilateral good air entry when he catches the BiPAP breath. No rhonchi. CARDIOVASCULAR: S1, S2. No murmurs, rubs, or gallops. ABDOMEN: Soft and nontender. EXTREMITIES: No clubbing, no cyanosis, there is trace edema. INTEGUMENT: No rash or purpura. LABORATORY DATA: 13 white count, 42 hematocrit, 228 platelets. Blood gas 7.31/44/100/97%oxygen saturation. 22 bicarbonate. Other labs include lipase 73, albumin was 4.8. Urinalysis slightly cloudy with RBC 6-10 and white blood count 6-10, 1+ blood, 1.[address] brain, no acute abnormality. Renal ultrasound with prostate 5.7 cm with 52 mL volume. Bladder estimates 272 mL volume. Kidneys normal with no calculi. IMPRESSION AND PLAN: 1. Acute respiratory failure, on BiPAP for salvage. Multifactorial. 2. Significant sleep apnea, unclear etiology to me, which could include obstructive or central or aspiration. 3. Chronic pain on chronic pain medicine of Neurontin, Tylenol, baclofen. 4. History of hypertension. 5. Predominantly nonsmoker. 6. Acute kidney failure, under evaluation. 7. Mild anemia. 8. Rhabdomyolysis, mild LFT elevation. 9. Abnormal urinary drug screen with benzodiazepines and opiates positive. 10. Abnormal urinalysis with microscopic hematuria and 10 white blood cells. 11. Clinical dehydration. At this time, continue BiPAP. We will go up on the [facility] for the apnea. As he awakens, I would like to get more history given the unclear etiology of his severe sleep apnea syndrome. The patient should have decreased the pain medicine until his respiratory drive can support it. IV fluid urine output. Recheck blood gas p.r.n. DVT prophylaxis reasonable. The patient to also get consideration for neurologic workup should ensue. Bronchodilators p.r.n. Thank you very much, Dr. Zafar for allowing me a chance to participate in care of Mr. Rush. Do not hesitate to contact me if I can help in anyway. Margarito M MD NATE Perry/MONE /[id number]
[2019-02-08 07:49] LABS: ANION GAP 13.2 mmol/L (8-16); CALCIUM 8.6 mg/dL (8.4-10.2); CREATININE, SERUM 1.67 mg/dL (0.72-1.25); POTASSIUM 3.2 mmol/L (3.5-5.1)
--- NOTE | 2019-02-08 09:09 | Diagnostic Imaging Report ---
Right lower extremity ultrasound. History: Right inguinal pain. Discussion: Grayscale sonographic elevation of the right inguinal region was performed in transverse and longitudinal planes. In the superior portion of the inguinal canal, peristalsing bowel is identified. This does not protrude inferiorly to the scrotum. Common femoral artery and vein are normal in appearance. IMPRESSION: Bowel containing proximal right inguinal hernia. Signed by: Danish Encarnacion on 02/08/2019 9:06 AM
--- NOTE | 2019-02-08 09:25 | NUR ---
NOTIFIED OF LABS
[2019-02-08] MEDS: HEPARIN SOD (PORCINE) 5,000 UNIT/ML VIAL SC SCH ×2 (09:59→19:57)
[2019-02-08] MEDS: POTASSIUM CHLORIDE 20MEQ/100ML 200 ML IV ONE ×2 (10:00→12:33)
--- NOTE | 2019-02-08 12:30 | NUR ---
PT WAS UNABLE TO TOLERATE K VIA IV, ON UNIT CHANGED TO PO
[2019-02-08] MEDS ORDERED: POTASSIUM CHLORIDE 20 MEQ TAB CR PO ONE ×2 (13:00→17:00)
[2019-02-08] MEDS: NYSTATIN/TRIAMCINOLONE 15 GM CR TOP SCH (17:03)
[2019-02-08] MEDS: ONDANSETRON HCL INJ 2MG/ML 2ML 2 MG/ML VIAL IV PRN (17:03)
--- NOTE | 2019-02-08 17:12 | Progress Note ---
DATE: 02/08/2019 CONSULTING PHYSICIANS: 1. Dr. Perla Jackson with Neurology. 2. Dr. Margarito Perry with Pulmonary. 3. Dr. Liliana Miller with Nephrology. CHIEF COMPLAINT: Altered mental status and rhabdomyolysis. SUBJECTIVE: The patient is much more alert and awake today and is able to answer questions. He denies any fever, chills, nausea, or vomiting. No focal weakness and family sitting at the bedside. OBJECTIVE: VITAL SIGNS: Temperature 98.4, pulse is 76, blood pressure is 127/70, respirations 17, and SpO2 is 100%. GENERAL: Appears in no acute distress. NECK: Supple. LUNGS: Clear to auscultation. CARDIOVASCULAR: Regular rate and rhythm. ABDOMEN: Soft and nontender. Right inguinal hernia noted, reducible, but painful. EXTREMITIES: Moves all extremities. NEUROLOGIC: Alert, awake, and oriented x3. MEDICATIONS: See med list. LABORATORY DATA: Sodium 140, potassium 3.2, chloride 102, CO2 of 28, creatinine 1.67, BUN 24, WBC 9.94, hemoglobin 12.2, hematocrit 36.8, AST 120, ALT 56, CK 1848. Ultrasound shows bowel containing inguinal hernia. Chest x-ray was negative. IMPRESSION: 1. Altered mental status, now resolved. 2. Rhabdomyolysis. We will continue to trend CK levels, now 1848. 3. Acute kidney injury with a history of renal insufficiency. 4. Hypertension. 5. Right inguinal hernia. We will consult surgical team for evaluation. 6. Hypokalemia. Replace and recheck. 7. Right groin rash, likely fungal. We will order nystatin. PLAN: We will continue with bicarb drip, we will continue to monitor him on tele, recheck his labs in the morning including CK levels. We will consult the surgical team for right inguinal hernia evaluation. Further recommendations to follow. Dictated by ORION Albright Ying Zafar MD MY/MODL /[id number] The patient was seen and examined. Agree with the findings and plan as documented by ORION Nguyen. MTDD
[2019-02-08] MEDS: HYDROCODONE/APAP 5MG-325MG TAB PO PRN (19:29)
--- NOTE | 2019-02-08 23:44 | NUR ---
Pulmonary Medicine Date of encounter: 02/08/2019 SUBJECTIVE Patient seen and examined at bedside. Patient really awoke yesterday towards evening.Patient remained on BiPAP during the night. However this morning BiPAP is off and he is on 2 L/m by nasal cannula. He states his dislike and unwillingness to use BiPAP as he does not use his positive airway device at home. He is on IV fluid at 150 cc per hour. He does clarify he does have central sleep apnea syndrome REVIEW OF SYSTEMS: no headaches, no bleeding OBJECTIVE: VITAL SIGNS: Vital signs noted and reviewed per the chart record. GENERAL: aawake, calm, speaking HEENT: Normocephalic and atraumatic. NECK: Supple. Throat midline. LUNGS: Bilateral good air entry. No rhonchi. CARDIOVASCULAR: S1, S2. No murmurs, rubs, or gallops. ABDOMEN: Soft and nontender. EXTREMITIES: No clubbing, no cyanosis, trace edema. INTEGUMENT: No rash or purpura. LABORATORY DATA: 3.2 potassium, 24 Alysa 1.7 creatinine. 9.9 white count, 37 hematocrit, 303 platelets. chest x-ray with mild atelectasis, no dali overload IMPRESSION AND PLAN: 1. Acute respiratory failure, s/p BiPAP salvage. 2. Significant sleep apnea, reported central apnea syndrome. 3. Chronic pain on chronic pain medicine of Neurontin, Tylenol, baclofen. 4. History of hypertension. 5. Predominantly nonsmoker. 6. Acute kidney failure, under evaluation. 7. Mild anemia. 8. Rhabdomyolysis, mild LFT elevation. 9. Abnormal urinary drug screen with benzodiazepines and opiates positive. 10. Abnormal urinalysis with microscopic hematuria and 10 white blood cells. 11. Clinical dehydration. Sleep BiPAP reasonable, but likely to be deferred. continue oxygen per protocol Continue optimizing renal function, IV fluid DVT prophys line mobilized Bronchodilators when necessary Thank you very much, Dr. Zafar for allowing me a chance to participate in care of Mr. Rush. Do not hesitate to contact me if I can help in anyway.
[2019-02-09] MEDS: SODIUM BICARBONATE 8.4% SYRING 150 ML in DEXTROSE 5% 1,000 ML IV SCH ×2 (00:24→09:00)
[2019-02-09] MEDS: ALBUTEROL SULF 0.083% NEB SOLN 3 ML NEB NEB SCH ×4 (01:05→19:00)
[2019-02-09] MEDS: MORPHINE SULFATE INJ 4 MG/ML INJ 1ML IV PRN ×5 (03:10→20:15)
--- NOTE | 2019-02-09 03:44 | Consultation ---
DATE OF CONSULTATION: 02/08/2019 CHIEF COMPLAINT: Right groin pain. HISTORY OF PRESENT ILLNESS: The patient is a 63-year-old male admitted with altered mental status and obvious dehydration with lethargy. [place] and apparently became dehydrated. He denied passing out, but has been complaining of severe weakness with no history of nausea, vomiting, or diarrhea. No fever or chills. PAST MEDICAL HISTORY: Significant for hypertension, chronic back pain. PAST SURGICAL HISTORY: Positive for back surgery, hand amputations. ALLERGIES: THE PATIENT HAS NO DRUG ALLERGIES. SOCIAL HABITS: The patient admitted to smoking and drinking socially. REVIEW OF SYSTEMS: No chest pain or shortness of breath. PHYSICAL EXAMINATION: VITAL SIGNS: Stable. He has a low-grade temperature 99.5. GENERAL: He is awake, alert, in mild to moderate discomfort. HEENT: Sclerae nonicteric. NECK: Supple. LUNGS: Clear. HEART: Regular rate and rhythm. ABDOMEN: Soft. There is a reducible right inguinal hernia. EXTREMITIES: Without cyanosis or edema. LABORATORY DATA: White cell count is 9.9, hemoglobin of 12, platelet count is 303. Creatinine is 1.7 with potassium of 3.2. Liver function tests within normal limits. Ultrasound show a bowel containing right inguinal hernia. ASSESSMENT: Elderly gentleman with history of reducible right inguinal hernia, who has been recovering from severe dehydration and probably heat stroke. PLAN: After resuscitation status complete patient tend to undergo right inguinal hernia repair prior to being discharged. Anirudh Slaughter MD DNL/MODL /[id number]
[2019-02-09 05:24] LABS: BASOPHILS % 0.1 % (0.0-1.0); EOSINOPHILS # (AUTO) 0.1 (0.0-0.4); EOSINOPHILS % 0.9 % (0.0-6.0); HEMATOCRIT 31.9 % (38.2-49.6); HEMOGLOBIN 10.4 g/dL (14.0-18.0); LYMPHOCYTES # (AUTO) 1.6 (1.0-3.2); LYMPHOCYTES % 21.2 % (18.0-39.1); MEAN CORPUSCULAR HEMOGLOBIN 29.9 pg (28-32); MEAN CORPUSCULAR HGB CONC 32.6 g/dL (31-35); MEAN CORPUSCULAR VOLUME 91.7 fL (81-99); MONOCYTES # (AUTO) 1.2 (0.2-0.8); MONOCYTES % 16.8 % (4.4-11.3); NEUTROPHILS # (AUTO) 4.5 (2.1-6.9); NEUTROPHILS % 60.5 % (38.7-80.0); PLATELET COUNT 237 x10e3/uL (140-360); RED BLOOD COUNT 3.48 x10e6/uL (4.3-5.7); RED CELL DISTRIBUTION WIDTH 15.5 % (11.7-14.4)
[2019-02-09 05:50] LABS: ALBUMIN 3.2 g/dL (3.5-5.0); ALBUMIN/GLOBULIN RATIO 1.1 (0.8-2.0); ANION GAP 12.7 mmol/L (8-16); CALCIUM 8.9 mg/dL (8.4-10.2); CREATININE, SERUM 1.42 mg/dL (0.72-1.25); MAGNESIUM 1.8 MG/DL (1.3-2.1); POTASSIUM 3.7 mmol/L (3.5-5.1)
--- NOTE | 2019-02-09 07:00 | NUR ---
Pt received resting in bed with girlfriend at bedside. Alert and oriented x4. Oriented to staff and surroundings. Encouraged to press call estrada if help needed. Emotional support given. Call estrada within reach. Will monitor
[2019-02-09 07:30] VITALS: BP 137/78
[2019-02-09] MEDS: ONDANSETRON HCL INJ 2MG/ML 2ML 2 MG/ML VIAL IV PRN ×3 (08:15→16:10)
--- NOTE | 2019-02-09 08:15 | NUR ---
All meds given as ordered. Call estrada within reach. Will monitor
[2019-02-09] MEDS: HEPARIN SOD (PORCINE) 5,000 UNIT/ML VIAL SC SCH (08:28)
[2019-02-09] MEDS: NYSTATIN/TRIAMCINOLONE 15 GM CR TOP SCH ×2 (09:00→15:13)
[2019-02-09 11:30] VITALS: BP 123/68
--- NOTE | 2019-02-09 13:30 | NUR ---
Obtained Consent for right inguinal hernia repair. Explained procedure to pt and family
[2019-02-09] MEDS: HYDROCODONE/APAP 5MG-325MG TAB PO PRN ×2 (13:47→18:04)
--- NOTE | 2019-02-09 14:46 | Progress Note ---
DATE: 02/09/2019 CONSULTING PHYSICIANS: 1. Perla Jackson MD with Neurology. 2. Margarito Perry MD with Pulmonary. 3. Anirudh Slaughter MD with Surgery. 4. Liliana Miller MD with Nephrology. CHIEF COMPLAINT: Altered mental status and rhabdomyolysis due to severe dehydration. SUBJECTIVE: The patient is resting in bed with no acute distress, family at the bedside. He denies any fever, chills, nausea, vomiting, chest pain, or shortness of breath. He reports constipation, but is passing gas. We will start Colace b.i.d. Still with right groin pain. OBJECTIVE: VITAL SIGNS: Temperature 98.4, pulse is 71, blood pressure is 123/68, respirations 22, and SpO2 100% on 2 L of oxygen. MEDICATIONS: See med list. PHYSICAL EXAMINATION: GENERAL: No acute distress. NECK: Supple. LUNGS: Decreased breath sounds. CARDIOVASCULAR: Regular rate and rhythm. ABDOMEN: Soft and nontender. EXTREMITIES: No edema noted. NEUROLOGY: Alert, awake, and oriented x3. SKIN: Dry and intact. Right groin rash noted. LABORATORY DATA: Sodium 143, potassium 3.7, chloride 101, CO2 33, creatinine 1.42, BUN is 11. WBC 7.37, hemoglobin 10.4, and hematocrit 31.9. CK level 689. AST 77, ALT 49. IMPRESSION: 1. Altered mental status is now resolved. 2. Rhabdomyolysis improving. CK is down to 689. We will continue with IV fluids. 3. EDD improving with creatinine of 1.49 today. 4. Hypertension, stable. 5. Right inguinal hernia. Surgical intervention planned in 1-2 days. 6. Sleep apnea. CPAP at night. PLAN: Continue IV fluids and pain management as needed. We will consult PT for evaluation and treat, will start on Colace b.i.d. for constipation. Surgical team has evaluated the patient and plan for surgery in 1-2 days. The patient is on heparin for DVT prophylaxis. Dictated by ORION Albright Jacquelineching Shant Zafar MD MY/MODL /[id number] The patient was seen and examined, discussed with Dr. Slaughter, surgical inguinal hernia repair planned for tomorrow at 8am. The patient may proceed to OR without further cardiac risk stratification. Agree with the findings and plan as documented by ORION Nguyen. KEYONNA
[2019-02-09] MEDS ORDERED: DOCUSATE SODIUM 100 MG CAP PO ONE (15:00)
[2019-02-09] MEDS: DEXTROSE 5%/0.45% SOD CHL 1,000 ML IV SCH (15:13)
[2019-02-09 16:00] VITALS: BP 129/67
[2019-02-09] MEDS ORDERED: FUROSEMIDE INJ 10 MG/ML 2 ML VIAL IV ONE (18:45)
--- NOTE | 2019-02-09 19:20 | NUR ---
Handoff given to oncoming RN. Pt resting in bed. Call estrada within reach
--- NOTE | 2019-02-09 20:26 | NUR ---
called and spoke with dr Zafar, clarified Heparin order since patient will have procedure in AM. the MD ordered to discontinue Heparin.
[2019-02-09 20:54] VITALS: BP 134/91
[2019-02-09] MEDS ORDERED: DOCUSATE SODIUM 100 MG CAP PO SCH (21:00)
[2019-02-09 21:26] VITALS: BP 134/91
--- NOTE | 2019-02-09 21:27 | NUR ---
patient just had shower with antiseptic for procedure in AM also he aware that he will be NPO after midnight. IV line infiltrated, nurse inserted new IV to right wrist size 22 g.
--- NOTE | 2019-02-09 21:55 | NUR ---
Pulmonary Medicine Date of encounter: 02/09/2019 SUBJECTIVE Not on BiPAP during the night. NS IV fluid at 150 cc per hour. 3 L /min oxygen right symptomatic inguinal hernia reported REVIEW OF SYSTEMS: no headaches, no bleeding OBJECTIVE: VITAL SIGNS: Vital signs noted and reviewed per the chart record. GENERAL: awake, calm, speaking HEENT: Normocephalic and atraumatic. NECK: Supple. Throat midline. LUNGS: Bilateral good air entry. No rhonchi. CARDIOVASCULAR: S1, S2. No murmurs, rubs, or gallops. ABDOMEN: Soft and nontender. EXTREMITIES: No clubbing, no cyanosis, trace edema. INTEGUMENT: No rash or purpura. LABORATORY DATA: k 3.7, cr 1.4. IMPRESSION AND PLAN: 1. Acute respiratory failure, s/p BiPAP salvage. off bipap 2. Significant sleep apnea, reported significant central apnea syndrome. 3. Chronic pain on chronic pain medicine of Neurontin, Tylenol, baclofen. 4. History of hypertension. 5. Predominantly nonsmoker. 6. Acute kidney failure, under evaluation. 7. Mild anemia. 8. Rhabdomyolysis, mild LFT elevation. 9. Abnormal urinary drug screen with benzodiazepines and opiates positive. 10. Abnormal urinalysis with microscopic hematuria and 10 white blood cells. 11. Clinical dehydration. Ok for surgery from a pulmonary point of view. --patient with severe sleep apnea ?central ? obstructive. will require post operative bipap and airway follow. continue oxygen per protocol Continue optimizing renal function, IV fluid DVT ppx mobilize with PT, as feasible Bronchodilators when necessary Thank you very much, Dr. Zafar for allowing me a chance to participate in care of Mr. Rush. Do not hesitate to contact me if I can help in anyway.
[2019-02-10 00:06] VITALS: BP 141/91
[2019-02-10] MEDS: MORPHINE SULFATE INJ 4 MG/ML INJ 1ML IV PRN ×6 (00:08→22:51)
[2019-02-10] MEDS: ALBUTEROL SULF 0.083% NEB SOLN 3 ML NEB NEB SCH ×3 (01:00→13:00)
[2019-02-10 04:07] VITALS: BP 140/85
[2019-02-10 05:36] LABS: BASOPHILS % 0.3 % (0.0-1.0); EOSINOPHILS # (AUTO) 0.3 (0.0-0.4); EOSINOPHILS % 3.9 % (0.0-6.0); HEMATOCRIT 33.5 % (38.2-49.6); HEMOGLOBIN 10.8 g/dL (14.0-18.0); LYMPHOCYTES # (AUTO) 1.5 (1.0-3.2); LYMPHOCYTES % 22.6 % (18.0-39.1); MEAN CORPUSCULAR HEMOGLOBIN 29.6 pg (28-32); MEAN CORPUSCULAR HGB CONC 32.2 g/dL (31-35); MEAN CORPUSCULAR VOLUME 91.8 fL (81-99); MONOCYTES % 15.2 % (4.4-11.3); NEUTROPHILS # (AUTO) 3.8 (2.1-6.9); NEUTROPHILS % 57.5 % (38.7-80.0); PLATELET COUNT 250 x10e3/uL (140-360); RED BLOOD COUNT 3.65 x10e6/uL (4.3-5.7); RED CELL DISTRIBUTION WIDTH 15.6 % (11.7-14.4)
[2019-02-10 06:01] LABS: ANION GAP 13.6 mmol/L (8-16); CREATININE, SERUM 1.59 mg/dL (0.72-1.25); POTASSIUM 3.6 mmol/L (3.5-5.1)
--- NOTE | 2019-02-10 06:45 | NUR ---
Pt received resting in bed with family at bedside. Alert and oriented x4. NPO for Right inguinal hernia repair. Will monitor
[2019-02-10 07:30] VITALS: BP 134/75
[2019-02-10] MEDS: DEXTROSE 5%/0.45% SOD CHL 1,000 ML IV SCH (07:30)
--- NOTE | 2019-02-10 07:30 | NUR ---
Pt left to the OR in bed flanked by family. Emotional support given.
[2019-02-10] MEDS ORDERED: BUPIVACAINE HCL 0.5% INJ 30 ML VIAL INJ ONE (07:37)
[2019-02-10] MEDS: NYSTATIN/TRIAMCINOLONE 15 GM CR TOP SCH ×2 (09:00→13:20)
[2019-02-10] MEDS ORDERED: FENTANYL CITRATE/PF 100MCG/2 ML INJ ONE ×2 (10:09→19:39)
--- NOTE | 2019-02-10 10:30 | NUR ---
Pt received s/p Right inguinal hernia repair. No bleeding or bruising noted at right groin. Will give pain meds as requested
[2019-02-10 10:55] VITALS: BP 122/69
[2019-02-10] MEDS: ONDANSETRON HCL INJ 2MG/ML 2ML 2 MG/ML VIAL IV PRN ×3 (10:55→19:04)
[2019-02-10] MEDS: HYDROCODONE/APAP 5MG-325MG TAB PO PRN (13:25)
[2019-02-10] MEDS ORDERED: BISACODYL 5 MG TAB EC PO PRN (13:30)
--- NOTE | 2019-02-10 16:43 | Operative Report ---
DATE OF PROCEDURE: 02/10/2019 SURGEON: Anirudh Slaughter MD PREOPERATIVE DIAGNOSIS: Right inguinal hernia. POSTOPERATIVE DIAGNOSIS: Right inguinal hernia. OPERATIVE PROCEDURE: Repair of right inguinal hernia with mesh. ANESTHESIA: General. INDICATIONS: A 63-year-old male with history of right inguinal hernia with discomfort. The patient consented for repair. Attendant risks discussed. PROCEDURE FINDING: Right indirect inguinal hernia. DESCRIPTION OF PROCEDURE: The patient was brought to the OR and intubated. The abdomen was prepped with alcohol and draped in sterile fashion. The right inguinal incision was made extending down to the external oblique fascia which was incised in the direction of its fibers. The underlying internal oblique and transversus abdominis muscles split and the preperitoneal space entered. The inferior epigastric vessel identified and retracted medially. We then proceeded to expose the Delfin ligament medially and the spermatic cord was placed in traction with a Surfside drain. The hernia sac of indirect type was dissected off the cord to level iliac crests. We then deployed an extended size Prolene hernia system mesh into the preperitoneal space and anchored it medially to the Delfin ligament with a 2-0 Prolene stitch. Anteriorly, the mesh was anchored to the overlying transversalis fascia with interrupted 2-0 Vicryl. Operative field irrigated, hemostasis achieved. We then closed the external oblique fascia with a running 2-0 Prolene. Skin was closed with subcuticular stitch. The patient was extubated, transported to recovery room. Estimated blood loss is 4 mL. Anirudh Slaughter MD DNL/MODL /[id number]
--- NOTE | 2019-02-10 17:52 | NUR ---
Pulmonary Medicine Date of encounter: 02/10/2019 SUBJECTIVE 90% saturation RA fio2 awake post op had hernia repair REVIEW OF SYSTEMS: no headaches, no bleeding OBJECTIVE: VITAL SIGNS: Vital signs noted and reviewed per the chart record. GENERAL: awake, calm, speaking HEENT: Normocephalic and atraumatic. NECK: Supple. Throat midline. LUNGS: Bilateral good air entry. No rhonchi. CARDIOVASCULAR: S1, S2. No murmurs, rubs, or gallops. ABDOMEN: Soft and nontender. EXTREMITIES: No clubbing, no cyanosis, trace edema. INTEGUMENT: No rash or purpura. LABORATORY DATA: 3.6 k, cr 1.59 wbc 6.60 , hct 34, plt 250 IMPRESSION AND PLAN: 1. Acute respiratory failure, s/p BiPAP salvage. off bipap 2. Significant sleep apnea, reported significant central apnea syndrome. 3. Chronic pain on chronic pain medicine of Neurontin, Tylenol, baclofen. 4. History of hypertension. 5. Predominantly nonsmoker. 6. Acute kidney failure, under evaluation. 7. Mild anemia. 8. Rhabdomyolysis, mild LFT elevation. 9. Abnormal urinary drug screen with benzodiazepines and opiates positive. 10. Abnormal urinalysis with microscopic hematuria and 10 white blood cells. 11. Clinical dehydration. s/p surgery . -- post operative airway follow. doing well so far continue oxygen per protocol DVT ppx mobilize with PT, as feasible Bronchodilators when necessary Thank you very much, Dr. Zafar for allowing me a chance to participate in care of Mr. Rush. Do not hesitate to contact me if I can help in anyway.
--- NOTE | 2019-02-10 18:39 | NUR ---
Handoff given to RN covering room 113. Pt transferred in bed with all belongings
--- NOTE | 2019-02-10 19:27 | NUR ---
report given to oncoming nurse, pt stable.
[2019-02-10] MEDS ORDERED: MIDAZOLAM HCL 2 MG/2 ML VIAL ONE (19:39)
[2019-02-10 20:00] VITALS: BP 158/73
[2019-02-10] MEDS: DOCUSATE SODIUM 100 MG CAP PO SCH (21:00)
[2019-02-11] MEDS: DEXTROSE 5%/0.45% SOD CHL 1,000 ML IV SCH (00:20)
[2019-02-11] MEDS: MORPHINE SULFATE INJ 4 MG/ML INJ 1ML IV PRN ×3 (04:45→14:34)
[2019-02-11 06:39] LABS: BASOPHILS % 0.1 % (0.0-1.0); EOSINOPHILS # (AUTO) 0.1 (0.0-0.4); EOSINOPHILS % 1.2 % (0.0-6.0); HEMOGLOBIN 10.9 g/dL (14.0-18.0); LYMPHOCYTES # (AUTO) 1.7 (1.0-3.2); LYMPHOCYTES % 16.5 % (18.0-39.1); MEAN CORPUSCULAR HEMOGLOBIN 29.9 pg (28-32); MEAN CORPUSCULAR HGB CONC 32.1 g/dL (31-35); MEAN CORPUSCULAR VOLUME 93.2 fL (81-99); MONOCYTES # (AUTO) 1.4 (0.2-0.8); MONOCYTES % 13.9 % (4.4-11.3); NEUTROPHILS # (AUTO) 6.9 (2.1-6.9); NEUTROPHILS % 67.8 % (38.7-80.0); PLATELET COUNT 276 x10e3/uL (140-360); RED BLOOD COUNT 3.65 x10e6/uL (4.3-5.7); RED CELL DISTRIBUTION WIDTH 15.4 % (11.7-14.4)
[2019-02-11] MEDS: ALBUTEROL SULF 0.083% NEB SOLN 3 ML NEB NEB SCH ×2 (07:00→13:00)
--- NOTE | 2019-02-11 07:10 | NUR ---
see down time charting.
[2019-02-11 07:18] LABS: ANION GAP 12.7 mmol/L (8-16); CALCIUM 9.3 mg/dL (8.4-10.2); CREATININE, SERUM 1.29 mg/dL (0.72-1.25); POTASSIUM 3.7 mmol/L (3.5-5.1)
--- NOTE | 2019-02-11 07:29 | NUR ---
Rcvd patient in report this am. Patient is asleep in bed at this time. No s/s of distress noted
[2019-02-11 08:05] VITALS: BP 148/71
[2019-02-11] MEDS: DOCUSATE SODIUM 100 MG CAP PO SCH (08:59)
[2019-02-11] MEDS: NYSTATIN/TRIAMCINOLONE 15 GM CR TOP SCH (09:18)
[2019-02-11] MEDS: ONDANSETRON HCL INJ 2MG/ML 2ML 2 MG/ML VIAL IV PRN (09:18)
[2019-02-11 10:05] VITALS: BP 148/71
[2019-02-11 12:11] VITALS: BP 139/76
[2019-02-11] MEDS ORDERED: TYLENOL WITH C1 EACH PO (15:01)
--- NOTE | 2019-02-11 16:05 | NUR ---
Patient discharged from facility to home. Patient assisted out via staff. Reviewed discharge paperwork with patient and family, RX's given and f/u appts reviewed
--- NOTE | 2019-02-11 23:34 | NUR ---
Pulmonary Medicine Date of encounter: 02/11/2019 SUBJECTIVE d5 1/2 NS at 60/hr did ok overnight REVIEW OF SYSTEMS: no headaches, no bleeding OBJECTIVE: VITAL SIGNS: Vital signs noted and reviewed per the chart record. GENERAL: awake, calm, speaking HEENT: Normocephalic and atraumatic. NECK: Supple. Throat midline. LUNGS: Bilateral good air entry. No rhonchi. CARDIOVASCULAR: S1, S2. No murmurs, rubs, or gallops. ABDOMEN: Soft and nontender. EXTREMITIES: No clubbing, no cyanosis, trace edema. INTEGUMENT: No rash or purpura. LABORATORY DATA: per emr cr 1.3 IMPRESSION AND PLAN: 1. Acute respiratory failure, s/p BiPAP salvage. off bipap 2. Significant sleep apnea, reported significant central apnea syndrome. 3. Chronic pain on chronic pain medicine of Neurontin, Tylenol, baclofen. 4. History of hypertension. 5. Predominantly nonsmoker. 6. Acute kidney failure, under evaluation. 7. Mild anemia. 8. Rhabdomyolysis, mild LFT elevation. 9. Abnormal urinary drug screen with benzodiazepines and opiates positive. 10. Abnormal urinalysis with microscopic hematuria and 10 white blood cells. 11. Clinical dehydration. s/p surgery . -- post operative airway follow. did well continue oxygen per protocol DVT ppx mobilize with PT, as feasible Bronchodilators when necessary Thank you very much, Dr. Zafar for allowing me a chance to participate in care of Mr. Rush. Do not hesitate to contact me if I can help in anyway.
--- NOTE | 2019-02-12 06:07 | Discharge Summary ---
CONSULTING PHYSICIANS: 1. Dr. Manuel Duncan with Neurology. 2. Dr. Margarito Perry with Pulmonary. 3. Dr. Anirudh Slaughter with Surgery. 4. Dr. Liliana Miller with Nephrology. PRIMARY CARE PHYSICIAN: Lionel Topete MD. FINAL DIAGNOSES: 1. Altered mental status due to severe dehydration. 2. Rhabdomyolysis. 3. Acute kidney failure. 4. Right inguinal hernia. 5. Sleep apnea history. 6. Chronic back pain. PROCEDURES DONE: Procedures done during the stay; he had a right inguinal hernia repair, on POD day #1. HISTORY: Per HPI. HOSPITAL COURSE: This is a 63-year-old male, who presented to the ER with altered mental status and rhabdomyolysis due to severe dehydration with acute kidney failure. He was started on IV fluid hydration. CT brain was unremarkable. Continue to monitor labs with IV fluid hydration. Neurology was consulted and recommended no further workup as there was no further focal weakness noted. The patient continued to have elevated kidney function levels, so Nephrology was consulted. Recommended bicarb drip, renal ultrasound was done, which was unremarkable with no hydronephrosis noted. The patient has underlying problem with chronic kidney disease per his PCP. Creatinine baseline is 1.4. He became more alert and awake. On day #2, he complained of severe right groin pain extending to his lower extremity, unable to walk. Imaging showed that he has a right inguinal hernia. Surgical team was consulted due to severe pain. Repair was done on 02/10/2019. Once his kidney function has improved. Today, his labs have improved, he is able to walk with physical therapy and minimal assistance. We will discharge home to follow up with Dr. Slaughter in one week, Dr. Read and PCP in 1 to 2 weeks. PHYSICAL EXAMINATION: VITAL SIGNS: Temperature 98.6, pulse 57, respirations 17, blood pressure 139/76, and pulse ox 94% on room air. GENERAL: No acute distress. NECK: Supple. LUNGS: Clear to auscultation. CARDIOVASCULAR: Regular rate and rhythm. ABDOMEN: Soft and nontender. Right inguinal hernia repaired with mild tenderness. EXTREMITIES: Active ROM. NEUROLOGICAL: Alert, awake, and oriented x3. SKIN: Intact. Rash noted on the right groin and cornelio area. LABORATORY DATA: WBC 10.21, hemoglobin 10.9, and hematocrit 34.0. Sodium 139, creatinine 1.29. Estimated GFR is 56. BUN is 12. CK is 195. CONDITION AT DISCHARGE: Stable and much improved. DISCHARGE MEDICATION: Please see medication reconciliation list. Followup with PCP and Dr. Read in 1 to 2 weeks. Follow up with Dr. Sukhjinder Oleary in one week. Total time of discharge is 35 minutes. Dictated by ORION Albright Jacquelineching Shant Zafar MD MY/MODL /[id number] cc: Lionel Topete MD The patient was seen and examined. Agree with the findings and plan as documented by ORION Nguyen. MTDD
== END 2019-02-11 16:04 | disposition home or self-care (01) | DRG 987 ==
LOC: ER 22:03 → ERHOLD 02-07 01:21 → IMCU 02-07 18:39 → MED/SURG 02-10 18:24
PROVIDERS: ADMIT Internal Medicine; ATTEND Internal Medicine
PROC: 0YU50JZ Supplement Right Inguinal Region with Synthetic Substitute, Open Approach (ICD-10-PCS; principal; 2019-02-10 08:00)
DX: T67.0XXA Heatstroke and sunstroke, initial encounter (principal); G93.41 Metabolic encephalopathy; J96.00 Acute respiratory failure, unspecified whether with hypoxia or hypercapnia; M62.82 Rhabdomyolysis; E87.2 Acidosis; N17.9 Acute kidney failure, unspecified; K40.90 Unilateral inguinal hernia, without obstruction or gangrene, not specified as recurrent; I10 Essential (primary) hypertension; E86.0 Dehydration; G47.30 Sleep apnea, unspecified
CPT/HCPCS: 36415; 36600; 51700; 70450; 71045; 76770; 76882; 80048; 80053; 80076; 80307; 80320; 80329; 81001; 82550; 82553; 82805; 82948; 83605; 83690; 83735; 84100; 84484; 85025; 93005; 94640; 94660; 96360; 96361; 99284; C1781; J0690; J1100; J1644; J1940; J2001; J2060; J2250; J2270; J2405; J3010; J3480; J7030; J7070

== ENCOUNTER 2020-01-03 17:37 | Inpatient (IN) | payer MEDICARE, OTHER ==
[~2020-01-03] VITALS: Ht 167.6 cm; Wt 81.6 kg
[~2020-01-03 17:37] MED LIST: AMLODIPINE BESYL5 MG PO; B-121000 MCG PO; BACLOFEN10 MG PO; BENADRYL25 M1 PO; FENOFIBRATE145 MG PO; GABAPENTIN300 MG PO; LISINOPRIL2.5 MG PO; MELATONIN3 M1 PO; MULTI-VITAMIN1 EACH PO; NORCO 10-325 T1 EACH PO; OCUVITE LUTEIN1 EACH PO; OMEPRAZOLE20 M1 PO; TYLENOL WITH C1 EACH PO
--- NOTE | 2020-01-03 17:55 | Emergency Department Note ---
History of Present Illnes History of Present Illness Chief Complaint: General Medicine Complaints History of Present Illness This is a 64 year old male Chief Complaint Comment "HEAT STROKE" PT IN W/C ONLY ANSWERS TO HIS NAME. PT WITH HEAD DOWNWARD AND NOT ANSWERING ANY QUESTIONS. . Historian: Patient, Family Member Arrival Mode: Car (WILI OTERO MD) Past Medical/Family History Physician Review I have reviewed the patient's past medical and family history. Any updates have been documented here. (WILI OTERO MD) Past Medical History Recent Fever: No Clinical Suspicion of Infectio: No New/Unexplained Change in Ment: No Past Medical History: Hypertension, Migraines, Chronic Back Pain Other Medical History: HLD Past Surgical History: Back Surgery Other Surgery: vasectomy (WILI OTERO MD) Other Last Tetanus: UTD (WILI OTERO MD) Review of Systems ROS Narrative Unable to obtain ROS: Unable to obtain due to, altered mental status (WILI OTERO MD) Physical Exam Related Data Allergies: Coded Allergies: No Known Allergies (Unverified , 02/17/18) Triage Vital Signs Vital Signs Date Time Temp Pulse Resp B/P (MAP) Pulse Ox O2 Delivery O2 Flow Rate FiO2 01/03/20 17:40 98.1 76 12 99/67 100 Room Air Vital signs reviewed: Yes (WILI OTERO MD) Physical Exam CONSTITUTIONAL Constitutional: Present well-developed, Present well-nourished HENT HENT: Present normocephalic, Present atraumatic, Present oropharynx clear/moist, Present nose normal HENT L/R: Present left ext ear normal, Present right ext ear normal EYES Eyes: Reports PERRL, Reports conjunctivae normal NECK Neck: Present ROM normal PULMONARY Pulmonary: Present effort normal, Present breath sounds normal CARDIOVASCULAR Cardiovascular: Present regular rhythm, Present heart sounds normal, Present capillary refill normal, Present normal rate GASTROINTESTINAL Abdominal: Present soft, Present nontender, Present bowel sounds normal GENITOURINARY Genitourinary: Present exam deferred SKIN Skin: Present warm, Present dry MUSCULOSKELETAL Musculoskeletal: Present ROM normal NEUROLOGICAL Neurological: Present no gross motor or sensory deficits, Present other (altered, arousable to voice); Absent alert, Absent oriented x 3, Absent cranial nerve deficit, Absent sensory deficit PSYCHOLOGICAL Psychological: Present mood/affect normal, Present judgement normal (WILI OTERO MD) Results Laboratory Lab results reviewed: Yes (WILI OTERO MD) Lab results reviewed: Yes Laboratory comments Laboratory Tests Test 01/03/20 19:10 01/03/20 18:34 01/03/20 18:04 01/03/20 17:43 Urine Color Yellow (YELLOW) Urine Clarity Sl cloudy (CLEAR) Urine pH 5 (5 - 7) Urine Specific [place] 1.020 (1.010-1.025) Urine Protein Negative (NEGATIVE) Urine Glucose (UA) Negative (NEGATIVE) Urine Ketones Negative (NEGATIVE) Urine Blood Negative (NEGATIVE) Urine Nitrite Negative (NEGATIVE) Urine Bilirubin Small (NEGATIVE) Urine Urobilinogen 0.2 mg/dL (0.2 - 1) Urine Leukocyte Esterase Negative (NEGATIVE) Urine RBC None /HPF (0-5) Urine WBC None /HPF (0-5) Urine Epithelial Cells Rare /LPF (NONE) Urine Amorphous Sediment Moderate (FEW) Urine Bacteria Few /HPF (NONE) Lactic Acid Level 1.3 mmol/L (0.5-2.0) White Blood Count 8.99 x10e3/uL (4.8-10.8) Red Blood Count 4.51 x10e6/uL (4.3-5.7) Hemoglobin 13.8 g/dL (14.0-18.0) Hematocrit 42.8 % (38.2-49.6) Mean Corpuscular Volume 94.9 fL (81-99) Mean Corpuscular Hemoglobin 30.6 pg (28-32) Mean Corpuscular Hemoglobin Concent 32.2 g/dL (31-35) Red Cell Distribution Width 14.7 % (11.7-14.4) Platelet Count 288 x10e3/uL (140-360) Neutrophils (%) (Auto) 63.6 % (38.7-80.0) Lymphocytes (%) (Auto) 23.7 % (18.0-39.1) Monocytes (%) (Auto) 10.7 % (4.4-11.3) Eosinophils (%) (Auto) 1.0 % (0.0-6.0) Basophils (%) (Auto) 0.2 % (0.0-1.0) Neutrophils # (Auto) 5.7 (2.1-6.9) Lymphocytes # (Auto) 2.1 (1.0-3.2) Monocytes # (Auto) 1.0 (0.2-0.8) Eosinophils # (Auto) 0.1 (0.0-0.4) Basophils # (Auto) 0.0 (0.0-0.1) Absolute Immature Granulocyte (auto 0.07 x10e3/uL (0-0.1) Sodium Level 136 mmol/L (136-145) Potassium Level 4.7 mmol/L (3.5-5.1) Chloride Level 98 mmol/L (98-107) Carbon Dioxide Level 23 mmol/L (22-29) Anion Gap 19.7 mmol/L (8-16) Blood Urea Nitrogen 41 mg/dL (7-26) Creatinine 5.20 mg/dL (0.72-1.25) Estimat Glomerular Filtration Rate 11 ML/MIN (60-) BUN/Creatinine Ratio 8 (6-25) Glucose Level 141 mg/dL (74-118) Calcium Level 10.1 mg/dL (8.4-10.2) Total Bilirubin 0.9 mg/dL (0.2-1.2) Aspartate Amino Transf (AST/SGOT) 104 IU/L (5-34) Alanine Aminotransferase (ALT/SGPT) 43 IU/L (0-55) Alkaline Phosphatase 31 IU/L (40-150) Creatine Kinase 2586 IU/L (30-200) Troponin I 0.044 ng/mL (0-0.300) B-Type Natriuretic Peptide 25.0 pg/mL (0-100) Total Protein 8.1 g/dL (6.5-8.1) Albumin 4.5 g/dL (3.5-5.0) Globulin 3.6 g/dL (2.3-3.5) Albumin/Globulin Ratio 1.3 (0.8-2.0) Bedside Glucose 136 mg/dL (70-120) (MYRIAM HUIZAR, DO) Imaging Imaging results reviewed: Yes (WILI OTERO MD) Imaging results reviewed: Yes (MYRIAM HUIZAR, ) Procedures 12 Lead ECG Interpretation ECG Interpretation : ECG: ECG 1 Prior ECG tracings: reviewed Rhythm: sinus rhythm Rate: normal QRS axis: normal Conduction: incomplete RBBB ST segments normal: Yes T waves normal: Yes Clinical Impression: abnormal ECG (MYRIAM HUIZAR DO) Assessment & Plan Medical Decision Making MDM Sign out received from Dr. Otero to f/u labs and imaging arrived to the ED for AMS. Pt in acute renal failure and rhabdomyolysis. Elevated creatinine is due to rhabdomyolysis and not secondary to infectious etiology causing organ dysfunction. Aggressive fluid resuscitation done, patient admitted for monitoring. Spoke at length to both son and daughter about findings, expressed understanding. Dr. Zafar informed. Patient admitted. (MYRIAM HUIZAR DO) Assessment & Plan Final Impression: (1) Rhabdomyolysis (2) Acute renal failure (MYRIAM HUIZAR DO) Depart Disposition: ADMITTED Last Vital Signs Date Time Temp Pulse Resp B/P (MAP) Pulse Ox O2 Delivery O2 Flow Rate FiO2 01/03/20 17:40 98.1 76 12 99/67 100 Room Air (WILI OTERO MD) Home Meds Active Scripts Acetaminophen With Codeine (TYLENOL WITH CODEINE #3 TABLET) 1 Each Tablet, 300 MG PO Q6H PRN for BREAKTHROUGH PAIN MDD 4, #14 TAB Prov:EDMAR KOENIG ONLINE COMMUNITY MANAGER 02/11/19 Reported Medications Vit C/Vit E Acetate/Lutein/Min (OCUVITE LUTEIN CAPSULE) 1 Each Capsule, PO DAILY 02/07/19 Melatonin (MELATONIN) 3 Mg Tablet.er, 10 PO HS 02/07/19 Diphenhydramine Hcl (BENADRYL) 25 Mg Capsule, 50 PO BID 02/07/19 Multivitamin (MULTI-VITAMIN DAILY) 1 Each Tablet, PO DAILY 02/07/19 Cyanocobalamin (Vitamin B-12) (B-12) 1,000 Mcg Tablet.er, PO DAILY 02/07/19 Omeprazole (OMEPRAZOLE) 20 Mg Tablet.dr, PO DAILY 02/07/19 Fenofibrate Nanocrystallized (FENOFIBRATE) 145 Mg Tablet, 160 PO DAILY 02/07/19 Baclofen (BACLOFEN) 10 Mg Tablet, 10 MG PO QID, #90 TAB 02/07/19 Amlodipine Besylate (AMLODIPINE BESYLATE) 5 Mg Tablet, 5 MG PO BID, #30 TAB 02/07/19 Gabapentin (GABAPENTIN) 300 Mg Capsule, 300 MG PO TID, #60 CAP 02/07/19 Hydrocodone Bit/Acetaminophen (NORCO 10-325 TABLET) 1 Each Tablet, PO Q6H PRN for NECK PAIN 02/07/19 WILI OTERO MD Jan 03, 2020 17:56 MYRIAM HUIZAR DO Jan 03, 2020 20:54
--- NOTE | 2020-01-03 18:03 | NUR ---
KENNY CATHETER PLACED PER CHARLES Zamora
--- NOTE | 2020-01-03 18:11 | Diagnostic Imaging Report ---
EXAMINATION: Head CT HISTORY: Altered mental status, lethargic, possible heat stroke, evaluate for CVA. COMPARISON: None. TECHNIQUE: Helical axial images of the head were obtained. Reformatted coronal and sagittal images from the axial data. Dose modulation, iterative reconstruction, and/or weight based adjustment of the mA/kV was utilized to reduce the radiation dose to as low as reasonably achievable. Image quality: Motion/streaking artifact limits the evaluation of the skull base and posterior cranial fossa. FINDINGS: Parenchyma: 1. No abnormal densities. 2. No mass or hemorrhage. No CT evidence of acute territorial vascular insult. Extra-axial spaces:No abnormal density. No extra-axial fluid collections Brain volume: Normal for age. Ventricles: No hydrocephalus or displacement. Arteries: No density suggestive of thrombus. Dural sinuses: No abnormal density. Foramen magnum: No mass, Chiari malformation, or basilar invagination. Sella: No obvious mass. Paranasal/mastoid sinuses: Imaged portions unremarkable. Skull/Scalp: No lytic or blastic lesions. No fractures. IMPRESSION: No intracranial abnormalities, particularly no hemorrhage or cortical infarcts. Signed by: Dr. Bruna Red M.D. on 01/03/2020 6:08 PM
[2020-01-03 18:23] LABS: BASOPHILS % 0.2 % (0.0-1.0); EOSINOPHILS # (AUTO) 0.1 (0.0-0.4); HEMATOCRIT 42.8 % (38.2-49.6); HEMOGLOBIN 13.8 g/dL (14.0-18.0); LYMPHOCYTES # (AUTO) 2.1 (1.0-3.2); LYMPHOCYTES % 23.7 % (18.0-39.1); MEAN CORPUSCULAR HEMOGLOBIN 30.6 pg (28-32); MEAN CORPUSCULAR HGB CONC 32.2 g/dL (31-35); MEAN CORPUSCULAR VOLUME 94.9 fL (81-99); MONOCYTES % 10.7 % (4.4-11.3); NEUTROPHILS # (AUTO) 5.7 (2.1-6.9); NEUTROPHILS % 63.6 % (38.7-80.0); PLATELET COUNT 288 x10e3/uL (140-360); RED BLOOD COUNT 4.51 x10e6/uL (4.3-5.7); RED CELL DISTRIBUTION WIDTH 14.7 % (11.7-14.4)
--- OUTSIDE RECORDS SUMMARY | 2020-01-03 18:26 | XMS REPORT | Clinical Summary ---
Author Author ARIELA [facility] Address Unknown Phone Unavailable Care Team Providers Care Siderographist Name Role Phone Kun PCP Allergies No [...] Shelf Expiration Date Model / Serial / L ot Implanted Type Area Manufactur er 06/24/2017 [id number] / / [id number] Matrix Floseal Hemo W/O Ndl 10 Cement/Mandeep Left: Spine ARAUJO:BIO [id number] - [id number] ler/Adhesi Lumbar SCI Implanted: Qty: 2 on 03/18/2016 by Virginia Miller RN [id number] / / [id number] Screw Spine Left: Back [employer] Implanted: Qty: 6 on 03/18/2016 by Cayden Pichardo MD [id number] / / [id number] Oracio Spine Left: Back [employer] Implanted: Qty: 1 on 03/18/2016 by Cayden Pichardo MD [id number] / / Set Screw Spine Left: Back [employer] Implanted: Qty: 6 on 03/18/2016 by Cayden Pichardo MD 10/11/2023 [id number] / / [id number] Interbody Device Spine Left: Back [employer] Implanted: Qty: 1 on 03/18/2016 by Cayden Pichardo MD 11/12/2023 [id number] / / [id number] Interbody Device Spine Left: Back [employer] Implanted: Qty: 1 on 03/18/2016 by Cayden Pichardo MD [id number] / / [id number] Oracio Spine Left: Back [employer] Implanted: Qty: 1 on 03/18/2016 by Cayden Pichardo MD 10/11/2017 [id number] / [id number] / Orthobend Spinal Graft Tissue Left: Back [employer] IC Implanted: Qty: 1 on 03/18/2016 by Graft/Subs Cayden Pichardo MD titute 11/04/2017 [id number] / [id number] / Dbm Paste [place] Plus Tissue Left: Back [employer] IC Implanted: Qty: 1 on 03/18/2016 by Graft/Subs Cayden Pichardo MD titute Results Not on fileafter 01/02/2019 Insurance Payer Benefit Subscriber ID Type Phone Address Plan / Group [employer] - [employer] C[employer]H xxxxxxxxxxx HMO/POS NETWORK Advance Directives For more information, please contact: [address] [address] Date Inactivated Comments Code Status Date Activated 03/24/2016 2:19 PM Full Code 03/18/2016 6:36 PM This code status was determined by: Patient 03/18/2016 6:36 PM Full Code 03/18/2016 7:08 AM This code status was determined by: Patient 11/08/2015 3:52 PM Full Code 11/04/2015 5:13 PM This code status was determined by: Patient
--- OUTSIDE RECORDS SUMMARY | 2020-01-03 18:26 | XMS REPORT | Continuity of Care Document ---
Author Author [facility] t Organization [facility] Address [address] [place] [address] Phone Unavailable Care Team Providers Care Front Office Spec Name Role Phone ERIC STONE, LES PCP Unavailable Mateo Otero Attphys Unavailable BRIDGET, Yakelin YICHING Attphys Unavailable BRIDGET, Yakelin YICHING Admphys Unavailable Payers Payer Name Policy Type Policy Number Effective Date Expiration Date [employer] Medicare Advantage [id number] 2018 00:0 0:00 [facility] [id number] 2010 00:00:00 [facility] Problems Condition Name Condition Details Condition Category Status Onset Date Resolution Date Last Treatment Date Treating Clinician Comments Source Lumbar disc herniation Lumbar disc herniation Disease Active 2016-03-18 00:00:00 [facility] Lumbar stenosis Lumbar stenosis Disease Active 2016-03-18 00:00:00 [facility] Spondylolisthesis, lumbar region Spondylolisthesis, lumbar regio n Disease Active 2016-03-18 00:00:00 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 PUD (peptic ulcer disease) PUD (peptic ulcer disease) Disease Active 2015-11-08 00:00:00 [facility] ATN (acute tubular necrosis) ATN (acute tubular necrosis) Disease Active 2015-11-06 00:00:00 [facility] Syncope Syncope Disease Active 2015-11-04 00:00:00 [facility] Bradycardia Bradycardia Disease Active 2015-11-04 00:00:00 [facility] Hypotension Hypotension Disease Active 2015-11-04 00:00:00 [facility] Acute renal failure (ARF) Acute renal failure (ARF) Disease Ac tive 2015-11-04 00:00:00 [facility] Allergies, Adverse Reactions, Alerts This patient has no known allergies or adverse reactions. Family History Family Member Diagnosis Comments Start Date Stop Date Source Natural father Cancer [facility] Natural mother Heart disease [facility] Social History Social Habit Start Date Stop Date Quantity Comments Source History of tobacco use Snuff User [facility] Sex Assigned At [facility] Tobacco Comment 2016-03-18 00:00:00 2016-03-18 00:00:00 occassinally [facility] Alcohol Comment 2015-11-04 00:00:00 2015-11-04 00:00:00 socially [facility] Smoking Status Start Date Stop Date Source Former smoker 2016-03-21 00:00:00 2016-03-21 00:00:00 [facility] Medications Ordered Medication Name Filled Medication Name Start Date Stop Da te Current Medication? Ordering Clinician Indication Dosage Frequency Signature (SIG) Comments Components Source Acetaminophen With Codeine (Tylenol With Codeine #3 Ta blet) 1 Each Tablet Acetaminophen With Codeine (Tylenol With Codeine #3 Tablet) 1 Each Tablet 2019-02-11 00:00:00 Yes Edmar Koenig Navigation Officer 300 Every 6 Hours as needed for Breakthrough Pain [facility] amLODIPine (NORVASC) 5 MG tablet 2016-03-24 00:00:00 Yes 5mg QD Take 1 tablet (5 mg total) by mouth daily. [facility] lisinopril (PRINIVIL,ZESTRIL) 20 MG tablet 2016-03-24 00:00:00 Yes 20mg QD Take 1 tablet (20 mg total) by mouth daily. [facility] pantoprazole (PROTONIX) 40 MG tablet 2016-03-24 00:00:00 Ye s 40mg Q.5D Take 1 tablet (40 mg total) by mouth 2 (two) times daily. [facility] fenofibrate (TRIGLIDE,LOFIBRA) 160 MG tablet 2015-11-04 17:13:11 Yes 160mg QD Take 160 mg by mouth daily. [facility] Amlodipine Besylate 5 Mg Tablet Amlodipine Besylate 5 Mg Tablet Yes 5 Twice A Day [facility] Baclofen 10 Mg Tablet Baclofen 10 Mg Tablet Yes 10 Four Times Daily [facility] Cyanocobalamin (Vitamin B-12) (B-12) 1,000 Mcg Tablet. er Cyanocobalamin (Vitamin B-12) (B-12) 1,000 Mcg Tablet.er Yes Daily [facility] Diphenhydramine Hcl (Benadryl) 25 Mg Capsule Diphenhyd ramine Hcl (Benadryl) 25 Mg Capsule Yes 50 Twice A Day [facility] Fenofibrate Nanocrystallized (Fenofibrate) 145 Mg Tabl et Fenofibrate Nanocrystallized (Fenofibrate) 145 Mg Tablet Yes 160 Daily [facility] Gabapentin 300 Mg Capsule Gabapentin 300 Mg Capsule Yes 300 Three Times A Day [facility] Hydrocodone Bit/Acetaminophen ([place] 10-325 Tablet) 1 Each Tablet Hydrocodone Bit/Acetaminophen ([place] 10-325 Tablet) 1 Each Tablet Yes Every 6 Hours as needed for Neck Pain [facility] Melatonin 3 Mg Tablet.er Melatonin 3 Mg Tablet.er Yes 10 Bedtime [facility] Multivitamin (Multi-Vitamin Daily) 1 Each Tablet Multi vitamin (Multi-Vitamin Daily) 1 Each Tablet Yes Daily [facility] Omeprazole 20 Mg Tablet. Omeprazole 20 Mg Tablet. Yes Daily [facility] Vit C/Vit E Acetate/Lutein/Min (Ocuvite Lutein Capsule ) 1 Each Capsule Vit C/Vit E Acetate/Lutein/Min (Ocuvite Lutein Capsule) 1 Each Capsule Yes Daily [facility] Lisinopril 2.5 Mg Tablet, 2.5 Mg Oral Lisinopril 2.5 Mg Tablet, 2.5 Mg Oral 2019-02-11 00:00:00 No 2.5 Daily [facility] Procedures Procedure Date / Time Performed Performing Clinician [facility] e Repair, inguinal hernia, right 2019-02-10 00:00:00 NEGRITO GARDNER [facility] Limited non-vascular ultrasound of extremity 2019-02-08 00:00:00 JACQUELIN GILL [facility] Ultrasound, renal 2019-02-07 00:00:00 EDMAR KOENIG [facility] Computed tomography of brain without radiopaque contrast 201 01-31-15 00:00:00 DANISH SÁNCHEZ [facility] Encounters Start Date/Time End Date/Time Encounter Type Admission Type [facility] Care Department Encounter ID Source 2019-02-07 01:21:00 2019-02-07 01:21:00 Admitted Inpatient 1 JACQUELIN GILL [facility] [id number] [facility] 2018-02-17 17:38:00 2018-02-17 17:38:00 Registered Emergency Room [facility] [id number] [facility] Results Test Description Test Time Test Comments Results Result Comments Source CT BRAIN WO 2020-01-03 18:06:00 [facility] [address] [place] [address] Patient Name: TESFAYE HOWARD MR #: [id number] : 1955 Age/Sex: 64/M Req #: [id number] Adm Physician: Ordered by: Wili Otero MD Report #: [id number] Location: ER Room/Bed: Procedure: [id number] CT/CT BRAIN WO Exam Date: 01/03/20 Exam Time: 1800 REPORT STATUS: Signed EXAMINATION: Head CT HISTORY: Altered mental status, lethargic, possible heat stroke, evaluate for CVA. COMPARISON: None. TECHNIQUE: Helical axial images of the head were obtained. Reformatted coronal and sagittal images from the axial data. Dose modulation, iterative reconstruction, and/or weight based adjustment of the mA/kV was utilized to reduce the radiation dose to as low as reasonably achievable. Image quality: Motion/streaking artifact limits the evaluation of the skull base and posterior cranial fossa. FINDINGS: Parenchyma: 1. No abnormal densities. 2. No mass or hemorrhage. No CT evidence of acute territorial vascular insult. Extra-axial spaces:No abnormal density. No extra-axial fluid collections Brain volume: Normal for age. Ventricles: No hydrocephalus or displacement. Arteries: No density suggestive of thrombus. Dural sinuses: No abnormal density. Foramen magnum: No mass, Chiari malformation, or basilar invagination. Sella: No obvious mass. Paranasal/mastoid sinuses: Imaged portions unremarkable. Skull/Scalp: No lytic or blastic lesions. No fractures. IMPRESSION: No intracranial abnormalities, particularly no hemorrhage or cortical infarcts. Signed by: Dr. Aruna Red M.D. on 01/03/2020 6:08 PM Dictated By: ARUNA RED MD 07 Transcribed By: SLAVA on 01/03/201807 COPY TO: WILI OTERO MD Sodium Level 2019-02-11 07:18:00 Test Item Sodium Level (test code = 2951-2) 139 136-145 [facility]Potassium [id number] 07:18:00* Test Item Value Reference Range Interpretation Comments Potassium Level (test code = 2823-3) 3.7 3.5-5.1 [facility] ChildrenChloride [id number] 07:18:00* Test Item Value Reference Range Interpretation Comments Chloride Level (test code = 2075-0) 104 98-107 [facility] ChildrenCarbon Dioxide [id number] 07:18:00* Test Item Value Reference Range Interpretation Comments Carbon Dioxide Level (test code = 8-9) 26 -29 [facility] ChildrenAnion [id number] 07:18:00* Test Item Value Reference Range Interpretation Comments Anion Gap (test code = 63873-2) 12.7 8-16 [facility] ChildrenBlood Urea Broktgvi4097-92-05 07:18:00* Test Item Value Reference Range Interpretation Comments Blood Urea Nitrogen (test code = 3094-0) 12 7- [facility] ChildrenCreatinine2019-09-20 07:18:00* Test Item Value Reference Range Interpretation Comments Creatinine (test code = 2160-0) 1.29 0.72-1.25 H [facility] ChildrenBUN/Creatinine Ixspu8921-38-63 07:18:00* Test Item Value Reference Range Interpretation Comments BUN/Creatinine Ratio (test code = 3097-3) 9 11-16 [facility] ChildrenEstimat Glomerular Filtration Rate 2019-02-11 07:18:00* Test Item Value Reference Range Interpretation Comments Estimat Glomerular Filtration Rate (test code = 363174552) 56 >60 L Ranges were taken from the National Kidney Disease Education Program and the [facility] literature.Reference ranges:60 or greater: Clvebw95-78 ( for 3 consecutive months): Chronic kidney disease 15 or less: Kidney failureTexas [facility] Rite Hospital for ChildrenGlucose Tfjex6986-96-62 07:18:00* Test Item Value Reference Range Interpretation Comments Glucose Level (test code = PJX4923) 97 74-118 [facility] ChildrenCalcium Kabip3664-80-12 07:18:00* Test Item Value Reference Range Interpretation Comments Calcium Level (test code = 52769-2) 9.3 8.4-10.2 [facility] ChildrenCreatine Uzzstv6090-32-55 07:18:00* Test Item Value Reference Range Interpretation Comments Creatine Kinase (test code = 2157-6) 195 30-200 [facility] ChildrenWhite Blood Wpkii9715-69-26 06:45:00* Test Item Value Reference Range Interpretation Comments White Blood Count (test code = 6690-2) 10.21 4.8-10.8 [facility] ChildrenRed Blood Anlgl6251-17-10 06:45:00* Test Item Value Reference Range Interpretation Comments Red Blood Count (test code = 789-8) 3.65 4.3-5.7 L [facility] ChildrenHemoglobin2019-09-20 06:45:00* Test Item Value Reference Range Interpretation Comments Hemoglobin (test code = 32800-1) 10.9 14.0-18.0 L [facility] ChildrenHematocrit2019-09-20 06:45:00* Test Item Value Reference Range Interpretation Comments Hematocrit (test code = 4544-3) 34.0 38.2-49.6 L [facility] ChildrenMean Corpuscular Ybfgst6951-90-74 06:45:00* Test Item Value Reference Range Interpretation Comments Mean Corpuscular Volume (test code = 787-2) 93.2 81-99 [facility] ChildrenMean Corpuscular Mfslunznvn1045-16-22 06:45:00* Test Item Value Reference Range Interpretation Comments Mean Corpuscular Hemoglobin (test code = 785-6) 29.9 28-32 [facility] ChildrenMean Corpuscular Hemoglobin Concent 2019-02-11 06:45:00* Test Item Value Reference Range Interpretation Comments Mean Corpuscular Hemoglobin Concent (test code = 786-4) 32.1 31-35 [facility] ChildrenRed Cell Distribution Onkgl8954-52-94 06:45:00* Test Item Value Reference Range Interpretation Comments Red Cell Distribution Width (test code = 07711-4) 15.4 11.7 -14.4 H [facility] ChildrenPlatelet Jniha1089-85-65 06:45:00* Test Item Value Reference Range Interpretation Comments Platelet Count (test code = 777-3) 276 140-360 [facility] ChildrenNeutrophils (%) (Auto)2019-02-11 06:45:00 * Test Item Value Reference Range Interpretation Comments Neutrophils (%) (Auto) (test code = 70324-2) 67.8 38.7-80.0 [facility] ChildrenLymphocytes (%) (Auto)2019-02-11 06:45:00 * Test Item Value Reference Range Interpretation Comments Lymphocytes (%) (Auto) (test code = 736-9) 16.5 18.0-39.1 L [facility] ChildrenMonocytes (%) (Auto)2019-02-11 06:45:00* Test Item Value Reference Range Interpretation Comments Monocytes (%) (Auto) (test code = 5905-5) 13.9 4.4-11.3 H [facility] ChildrenEosinophils (%) (Auto)2019-02-11 06:45:00 * Test Item Value Reference Range Interpretation Comments Eosinophils (%) (Auto) (test code = 713-8) 1.2 0.0-6.0 [facility] ChildrenBasophils (%) (Auto)2019-02-11 06:45:00* Test Item Value Reference Range Interpretation Comments Basophils (%) (Auto) (test code = 706-2) 0.1 0.0-1.0 [facility] ChildrenIM GRANULOCYTES %2019-02-11 06:45:00* Test Item Value Reference Range Interpretation Comments IM GRANULOCYTES % (test code = IM GRANULOCYTES %) 0.5 0.0- 1.0 [facility] ChildrenNeutrophils # (Auto)2019-02-11 06:45:00* Test Item Value Reference Range Interpretation Comments Neutrophils # (Auto) (test code = 751-8) 6.9 2.1-6.9 [facility] ChildrenLymphocytes # (Auto)2019-02-11 06:45:00* Test Item Value Reference Range Interpretation Comments Lymphocytes # (Auto) (test code = 26871-3) 1.7 1.0-3.2 [facility] ChildrenMonocytes # (Auto)2019-02-11 06:45:00* Test Item Value Reference Range Interpretation Comments Monocytes # (Auto) (test code = 742-7) 1.4 0.2-0.8 H [facility] ChildrenEosinophils # (Auto)2019-02-11 06:45:00* Test Item Value Reference Range Interpretation Comments Eosinophils # (Auto) (test code = 711-2) 0.1 0.0-0.4 [facility] ChildrenBasophils # (Auto)2019-02-11 06:45:00* Test Item Value Reference Range Interpretation Comments Basophils # (Auto) (test code = 704-7) 0.0 0.0-0.1 [facility] ChildrenAbsolute Immature Granulocyte (auto 2019-02-11 06:45:00* Test Item Value Reference Range Interpretation Comments Absolute Immature Granulocyte (auto (remberto t code = Absolute Immature Granulocyte (auto) 0.05 0-0.1 [facility] ChildrenMagnesium Xtzut5138-11-76 06:11:00* Test Item Value Reference Range Interpretation Comments Magnesium Level (test code = 47023-9) 1.8 1.3-2.1 [facility] ChildrenTotal Btceoqvdv8631-44-42 06:11:00* Test Item Value Reference Range Interpretation Comments Total Bilirubin (test code = 1975-2) 0.7 0.2-1.2 [facility] ChildrenAspartate Amino Transf (AST/SGOT) 2019-02-09 06:11:00* Test Item Value Reference Range Interpretation Comments Aspartate Amino Transf (AST/SGOT) (test code = Aspartate Amino Transf (AST/SGOT)) 77 5-34 H [facility] ChildrenAlanine Aminotransferase (ALT/SGPT) 2019-02-09 06:11:00* Test Item Value Reference Range Interpretation Comments Alanine Aminotransferase (ALT/SGPT) (test code = 1742-6) 49 0-55 [facility] ChildrenTotal Igenqxp2726-00-73 06:11:00* Test Item Value Reference Range Interpretation Comments Total Protein (test code = 2885-2) 6.0 6.5-8.1 L [facility] ChildrenAlbumin2019-09-18 06:11:00* Test Item Value Reference Range Interpretation Comments Albumin (test code = 1751-7) 3.2 3.5-5.0 L [facility] ChildrenGlobulin2019-09-18 06:11:00* Test Item Value Reference Range Interpretation Comments Globulin (test code = 66261-4) 2.8 2.3-3.5 [facility] ChildrenAlbumin/Globulin Uhyew6844-97-80 06:11:00 * Test Item Value Reference Range Interpretation Comments Albumin/Globulin Ratio (test code = 1759-0) 1.1 0.8-2.0 [facility] ChildrenAlkaline Dvmpylfzjtr4747-07-48 06:11:00* Test Item Value Reference Range Interpretation Comments Alkaline Phosphatase (test code = 6768-6) 39 40-150 L [facility] ChildrenPhosphorus Lrfqp9817-55-36 16:57:00* Test Item Value Reference Range Interpretation Comments Phosphorus Level (test code = HIB2216) 2.1 2.3-4.7 L [facility] ChildrenUS EXTREMITY ROSALES TVD-PBK4626-08-17 09:04:00 [place] [address] Patient Name: TESFAYE HOWARD MR #: [id number] : 1955 Age/Sex: 63/M Req #: [id number] Adm Physician: JACQUELIN GILL MD Ordered by: JACQUELIN GILL MD Report #: [id number] Location: [facility] Room/Bed: [place] [address] Procedure: [id number] US/ US EXTREMITY ROSALES NON-VAS Exam Date: 02/08/19 Exam Ti me: 0817 REPORT STATUS: Signed Right lower extremity ultrasound. History: Right inguinal pain. Discussion: Grayscale sonographic elevation of the right inguinal region was p erformed in transverse and longitudinal planes. In the superior portion of the inguinal canal, peristalsing bowel is identified. This does not protrude infe riorly to the scrotum. Common femoral artery and vein are normal in appearance . IMPRESSION: Bowel containing proximal right inguinal hernia. Signed by: Danish Encarnacion on 02/08/2019 9:06 AM Dictated By: DANISH ENCARNACION MD 5 Transcrib ed By: SLAVA on 02/08/19905 COPY TO: JACQUELIN GILL MD CHEST SINGLE (PORTABLE)2019-02-08 06:47:00 [place] [address] Patient Name: TESFAYE HOWARD MR #: [id number] : 1955 Age/Sex: 63/M Req #: [id number] Adm Physician: JACQUELIN GILL MD Ordered by: HELENE WAGGONER MD Report #: [id number] Location: [facility] Room/Bed: [place] [address] Procedure: [id number] D X/CHEST SINGLE (PORTABLE) Exam Date: 02/08/19 Exam T tea: 0550 REPORT STATUS: Signed Examination: Single AP view of the chest. COMPARISON: Portable chest 01/23 INDICATION: Shortness of breath, CHF, weakness IMPRESSION: 1. Lines and Tubes: None 2. Lungs are grossly clear. No consolidation or effusion. 3. Cardiomediastinal silhouette is normal. Pulmonary vasculat ure is normal. 4. No acute bony abnormalities. Signed by: Dr. Regino Mcnally M.D. on 02/08/2019 6:48 AM Dictated By: REGINO MCNALLY MD Electr onically Signed By: REGINO MCNALLY MD on 09/647 Transcribed By: SLAVA on 02/08/19647 COPY TO: HELENE WAGGONER MD, ABIM Direct Ovnfjzexf2591-75-87 06:14:00* Test Item Value Reference Range Interpretation Comments Direct Bilirubin (test code = 48142-3) 0.4 0.0-0.5 [facility] ChildrenAcetaminophen Inphd7080-30-23 15:34:00* Test Item Value Reference Range Interpretation Comments Acetaminophen Level (test code = 95337-2) < 3 10-30 [facility] Dfyyd5516-11-84 15:34:00* Test Item Value Reference Range Interpretation Comments Salicylates Level (test code = 4024-6) < 5.0 0-30 [facility] ChildrenUS RENAL RETROPERITONEAL [id number] 11:46:00 [place] [address] Patient Name: TESFAYE HOWARD MR #: [id number] : 1955 Age/Sex: 63/M Req #: [id number] Adm Physician: JACQUELIN GILL MD Ordered by: EDMAR KOENIG FEATURES EDITOR Report #: [id number] Location: [facility] Room/Bed: [place] [address] Procedure: [id number] US /US RENAL RETROPERITONEAL COMP Exam Date: 02/07/19 E xam Time: 1116 REPORT STATUS: Gabbi d EXAM: Renal Ultrasound INDICATION: ACUTE KIDNEY FAILURE CO MPARISON: None TECHNIQUE: Transverse and longitudinal images of the kidneys a nd bladder were obtained. FINDINGS: Right Kidney: Length: 11.2 cm Appearance: Normal echogenicity. Collecting system: No hydronephro sis Stones: None Cyst/Mass: None Left Kidney: Length: 10.7 cm Appe arance: Normal echogenicity. Collecting system: No hydronephrosis Stones: None Cyst/Mass: None Bladder: No mass or calculi. Bilateral ureteral j ets seen. Prevoid volume estimate of 272.3 cc The prostate measures 5.7 x 4.4 x 4.0 cm with a volume estimate of 51.8 cc IMPRESSION: No hydronephr osis or renal calculi. Prostatomegaly. 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 TO: EDMAR KOENIG NP Arterial Blood [id number] 10:21:00* Test Item Value Reference Range Interpretation Comments Arterial Blood pH (test code = 2744-1) 7.31 7.31-7.41 [facility] ChildrenAr[facility] Blood Partial Pressure CO2 2019-02-07 10:21:00* Test Item Value Reference Range Interpretation Comments Arterial Blood Partial Pressure CO2 (test code = 2018-12) 44 41-51 [facility] ChildrenAr[facility]ial Blood Partial Pressure O2 2019-02-07 10:21:00* Test Item Value Reference Range Interpretation Comments Arterial Blood Partial Pressure O2 (test code = 2018-12) 100 80-105 [facility] ChildrenArterial Blood [id number] 10:21:00* Test Item Value Reference Range Interpretation Comments Arterial Blood HCO3 (test code = 1960-4) 22 23-28 L [facility] ChildrenArterial Blood Base Rzmqra4197-12-16 10:21:00* Test Item Value Reference Range Interpretation Comments Arterial Blood Base Excess (test code = 1925-7) -4.0 -2-3 L [facility] ChildrenArterial Blood Oxygen Saturation 2019-02-07 10:21:00* Test Item Value Reference Range Interpretation Comments Arterial Blood Oxygen Saturation (test code = 2708-6) 97.0 95-98 [facility] ChildrenFiO22019-09-16 10:21:00* Test Item Value Reference Range Interpretation Comments FiO2 (test code = FiO2) 28 2L/M NC LEFT RADIALCHI [facility] Club[facility] [id number] 09:59:00* Test Item Value Reference Range Interpretation Comments Urine WBC (test code = 5821-4) 6-10 0-5 H [facility] ChildrenUrine [id number] 09:59:00* Test Item Value Reference Range Interpretation Comments Urine RBC (test code = 48288-9) 6-10 0-5 H [facility] ChildrenUrine Uafhgbno2757-84-94 09:59:00* Test Item Value Reference Range Interpretation Comments Urine Bacteria (test code = 94167-4) RARE NONE [facility] ChildrenU[facility] Epithelial Sinci2542-74-50 09:59:00 * Test Item Value Reference Range Interpretation Comments Urine Epithelial Cells (test code = 87738-0) FEW NONE [facility] ChildrenUrine Kelqe3009-99-08 09:53:00* Test Item Value Reference Range Interpretation Comments Urine Color (test code = 5778-6) YELLOW YELLOW [facility] ChildrenUrine Bqcpfxy2325-83-06 09:53:00* Test Item Value Reference Range Interpretation Comments Urine Clarity (test code = 17928-9) SL CLOUDY CLEAR H [facility] ChildrenUrine Specific Zwnvwus3199-55-21 09:53:00 * Test Item Value Reference Range Interpretation Comments Urine Specific Tucker (test code = 5811-5) 1.015 1.010-1.02 5 [facility] ChildrenU[facility] [id number] 09:53:00* Test Item Value Reference Range Interpretation Comments Urine pH (test code = 17464-3) 5.5 5-7 [facility] Children[facility] Leukocyte Gpmvwvsv1306-37-03 09:53:00* Test Item Value Reference Range Interpretation Comments Urine Leukocyte Esterase (test code = 69054-7) NEGATIVE NEGATIV E [facility] ChildrenUrine Uwvudzn5250-92-67 09:53:00* Test Item Value Reference Range Interpretation Comments Urine Nitrite (test code = 40660-3) NEGATIVE NEGATIVE [facility] Olsnxkj6889-63-88 09:53:00* Test Item Value Reference Range Interpretation Comments Urine Protein (test code = 99540-1) NEGATIVE NEGATIVE [facility] ChildrenU[facility] Glucose (UA)2019-02-07 09:53:00* Test Item Value Reference Range Interpretation Comments Urine Glucose (UA) (test code = 35273-1) NEGATIVE NEGATIVE [facility] ChildrenU[facility] Xgjhgcp6821-87-81 09:53:00* Test Item Value Reference Range Interpretation Comments Urine Ketones (test code = 08175-2) NEGATIVE NEGATIVE [facility] ChildrenU[facility] Niihumoadurj4704-80-92 09:53:00* Test Item Value Reference Range Interpretation Comments Urine Urobilinogen (test code = 99237-1) 0.2 0.2-1 [facility] ChildrenU[facility] Xnvhdhodz4263-73-58 09:53:00* Test Item Value Reference Range Interpretation Comments Urine Bilirubin (test code = 1977-8) NEGATIVE NEGATIVE [facility] ChildrenUrine Ewkvk7689-45-93 09:53:00* Test Item Value Reference Range Interpretation Comments Urine Blood (test code = 46817-2) 1+ NEGATIVE [facility] ChildrenCreatine Kinase AE2780-88-19 05:09:00* Test Item Value Reference Range Interpretation Comments Creatine Kinase MB (test code = 82411-9) 24.90 0-5.0 H [facility] ChildrenTroponin M8312-85-64 05:09:00* Test Item Value Reference Range Interpretation Comments Troponin I (test code = SOF5089) 0.099 0-0.300 [facility] ChildrenUrine Opiates Diiooy8583-80-59 04:51:00* Test Item Value Reference Range Interpretation Comments Urine Opiates Screen (test code = 71478-9) POSITIVE NEGATIVE H ALL TESTS PERFORMED MANUALLY ON Oculus VR TOX/SEE TEST This test provides only a sc reen. Positive results should be repeated by a confirmatory test.[facility] ChildrenU[facility] Barbiturates Xypgxz3983-18-60 04:51:00* Test Item Value Reference Range Interpretation Comments Urine Barbiturates Screen (test code = 729317003) NEGATIVE NEGA TIVE [facility] Children[facility] Phencyclidine Nztdps0934-70-72 04:51:00* Test Item Value Reference Range Interpretation Comments Urine Phencyclidine Screen (test code = 25996-2) NEGATIVE NEGAT YOLY [facility] ChildrenU[facility] Amphetamines Bcqsrq9200-75-87 04:51:00* Test Item Value Reference Range Interpretation Comments Urine Amphetamines Screen (test code = 57742-0) NEGATIVE NEGATI VE [facility] ChildrenU[facility] Methamphetamines Xagqda7592-01-24 04:51:00* Test Item Value Reference Range Interpretation Comments Urine Methamphetamines Screen (test code = Urine Metha mphetamines Screen) NEGATIVE NEGATIVE [facility] ChildrenU[facility] Benzodiazepines Azzsho5365-72-25 04:51:00* Test Item Value Reference Range Interpretation Comments Urine Benzodiazepines Screen (test code = 18614-2) POSITIVE NEG ATIVE H This test provides only a screen. Positive results should be repeated by a confi rmatory test.[facility] Children[facility] Cocaine Screen 2019-02-07 04:51:00* Test Item Value Reference Range Interpretation Comments Urine Cocaine Screen (test code = 3398-5) NEGATIVE NEGATIVE [facility] Children[facility] Cannabinoids Wavqie8436-19-39 04:51:00* Test Item Value Reference Range Interpretation Comments Urine Cannabinoids Screen (test code = 69401-5) NEGATIVE NEGATI VE THESE RESULTS ARE FOR MEDICAL TREATMENT ONLYTHIS REPORT CONTAINS UNCONFIR MED SCREENING RESULTS*POSITIVE RESULTS WILL BE CONFIRMED BY REFERENCE LAB UPON R EQUEST CUT-OFFDRUG CLASS CONCENTRATION ng/mLAmphetamines 1000Methamphetamines 1000Cocaine 300Opiate 300Phencyc lidine 25Cannabinoid 50Barbiturates 300Benzodiazepine 300Methadone 300[facility] Methadone Oyuylq0270-96-94 04:51:00* Test Item Value Reference Range Interpretation Comments Urine Methadone Screen (test code = 33039-8) NEGATIVE NEGATIVE THESE RESULTS ARE FOR MEDICAL TREATMENT ONLYTHIS REPORT CONTAINS UNCONFIR MED SCREENING RESULTS*POSITIVE RESULTS WILL BE CONFIRMED BY REFERENCE LAB UPON R EQUEST CUT-OFFDRUG CLASS CONCENTRATION ng/mLAmphetamines 1000Methamphetamines 1000Cocaine Metabolite 300Opiate 300Phencyc lidine 25Cannabinoid 50Barbiturates 300Benzodiazepine 300Methadone 300[facility] SINGLE (PORTABLE)2019-02-07 01:30:00 [facility] [address] [address] Patient Name: TESFAYE HOWARD MR #: [id number] : 1955 Age/Sex: 63/M Req #: [id number] Adm Physician: JACQUELIN GILL MD Ordered by: DANISH SÁNCHEZ DO Report #: [id number] Location: [facility] Room/Bed: [place] [address] Procedure: [id number] DX/C HEST SINGLE (PORTABLE) Exam Date: 02/06/19 Exam Time : 2219 REPORT STATUS: Signed EXA MINATION: CHEST SINGLE (PORTABLE) INDICATION: Altered mental status COMPARISON: None FINDINGS: AP view TUBES and LINES: None. LUNGS: Lungs are well inflated. Lungs are clear. Prominent central pulmonary vasculature. PLEURA: No pleural effusion or pneumothorax. HEART AND MEDIASTINUM: Cardiac size is mildly enlarged. BONES AND SOFT TISSUES: Soft tissues are unremarkable. Suspect vertebral body compression deformities in the lower thoracic spine. UPPER ABDOMEN: No free air under the diaphragm. IMPRESSION: Mild cardiomegaly and central pulmonar y vascular congestion. Suspect vertebral body compression deformities in the l ower thoracic spine. Signed by: Beto Hines DO on 02/07/2019 1:32 AM Dictated By: BETO HINES DO 1 Transcribed By: SLAVA on 02/07/19131 COPY TO: DANISH SÁNCHEZ DO Lactic Acid Ipydh1261-54-11 01:18:00* Test Item Value Reference Range Interpretation Comments Lactic Acid Level (test code = Lactic Acid Level) 9.9 4.5- 19.8 [facility] ChildrenLipase2019-09-15 23:24:00* Test Item Value Reference Range Interpretation Comments Lipase (test code = 3040-3) 73 8-78 [facility] ChildrenEthyl Alcohol Oyrqw6378-62-51 23:23:00* Test Item Value Reference Range Interpretation Comments Ethyl Alcohol Level (test code = 5643-2) < 10.0 0.0-10.0 [facility] ChildrenBedside Igvavkn7214-43-13 23:11:00* Test Item Value Reference Range Interpretation Comments Bedside Glucose (test code = 51207-5) 109 70-120 Meter ID: [id number] [facility] for ChildrenCT BRAIN HN1965-70-86 22:35:[address] [address] Patient Name: TESFAYE HOWARD MR #: [id number] : 1955 Age/Sex: 63/M Req #: [id number] Adm Physician: Ordered by: DANISH SÁNCHEZ DO Report #: [id number] Location: ER Room/Bed: Procedure: [id number] CT/CT BRAIN WO Exam Date: 02/06/19 Exam Time: 2218 REPORT STATUS: Signed History: Disorie nted Comparison studies: None Technique: Axial images were obtai aminta from the skull base to the vertex. Coronal and sagittal reconstructions obtained from the axial data. Dose modulation, iterative reconstruction, and/o r weight based adjustment of the mA/kV was utilized to reduce the radiation d ose to as low as reasonably achievable. Intravenous contrast: None Findings: Scalp/skull: No abnormalities. No fractures, blastic or lytic lesions. Extra-axial spaces: No masses. No fluid collections. Brai n sulci: Appropriate for age. Ventricles: Normal in size and configuration. No hydrocephalus. Parenchyma: No abnormal densities. No masses, hemorrh age, acute or chronic cortical vascular insults. Sellar/suprasellar region: No abnormalities Craniocervical junction: Patent foramen magnum. No Chiari o ne malformation. Incidental findings: None. IMPRESSION: No abno rmalities. Signed by: Dr. Phillip Jama M.D. on 02/06/2019 10:48 PM Dictated By: PHILLIP JAMA MD, MD 47 Transcribed By: SLAVA on 02/06/192247 COPY TO: DANISH SÁNCHEZ DO Sodium Fzfds3037-87-80 19:51:00* Test Item Value Reference Range Interpretation Comments Sodium Level (test code = 2951-2) 139 136-145 [facility] ChildrenPotassium Tjuww0701-87-67 19:51:00* Test Item Value Reference Range Interpretation Comments Potassium Level (test code = 2823-3) 4.5 3.5-5.1 [facility] ChildrenChloride Fltpj5360-83-11 19:51:00* Test Item Value Reference Range Interpretation Comments Chloride Level (test code = 2075-0) 104 98-107 [facility] ChildrenCarbon Dioxide Uundy1933-64-67 19:51:00* Test Item Value Reference Range Interpretation Comments Carbon Dioxide Level (test code = 2028-9) 25 22-29 [facility] ChildrenAnion Lro7177-95-07 19:51:00* Test Item Value Reference Range Interpretation Comments Anion Gap (test code = 18883-6) 14.5 8-16 [facility] ChildrenBlood Urea Jjcwdjfg6351-15-67 19:51:00* Test Item Value Reference Range Interpretation Comments Blood Urea Nitrogen (test code = 3094-0) 29 7-26 H [facility] ChildrenCreatinine2018-09-26 19:51:00* Test Item Value Reference Range Interpretation Comments Creatinine (test code = 2160-0) 2.14 0.72-1.25 H [facility] ChildrenBUN/Creatinine Whvlx2042-87-97 19:51:00* Test Item Value Reference Range Interpretation Comments BUN/Creatinine Ratio (test code = 3097-3) 14 6-25 [facility] ChildrenEstimat Glomerular Filtration Rate 2018-02-17 19:51:00* Test Item Value Reference Range Interpretation Comments Estimat Glomerular Filtration Rate (test code = 076184018) 31 >60 L Ranges were taken from the National Kidney Disease Education Program and the [facility] Kidney Foundation literature.Reference ranges:60 or greater: Uoyptu99-00 ( for 3 consecutive months): Chronic kidney disease 15 or less: Kidney failureTexas [facility] Rite Hospital for ChildrenGlucose Poycg4207-15-58 19:51:00* Test Item Value Reference Range Interpretation Comments Glucose Level (test code = FWA2242) 86 74-118 [facility] ChildrenCalcium Epyih9677-28-08 19:51:00* Test Item Value Reference Range Interpretation Comments Calcium Level (test code = 69663-4) 9.5 8.4-10.2 [facility] ChildrenTotal Njmwxznzx4989-62-44 19:51:00* Test Item Value Reference Range Interpretation Comments Total Bilirubin (test code = 1975-2) 0.4 0.2-1.2 [facility] for ChildrenAspartate Amino Transf (AST/SGOT) 2018-02-17 19:51:00* Test Item Value Reference Range Interpretation Comments Aspartate Amino Transf (AST/SGOT) (test code = Aspartate Amino Transf (AST/SGOT)) 37 5-34 H [facility] ChildrenAlanine Aminotransferase (ALT/SGPT) 2018-02-17 19:51:00* Test Item Value Reference Range Interpretation Comments Alanine Aminotransferase (ALT/SGPT) (test code = 1742-6) 38 0-55 [facility] ChildrenTotal Qgwxfyx2414-90-61 19:51:00* Test Item Value Reference Range Interpretation Comments Total Protein (test code = 2885-2) 7.0 6.5-8.1 [facility] ChildrenAlbumin2018-09-26 19:51:00* Test Item Value Reference Range Interpretation Comments Albumin (test code = 1751-7) 4.0 3.5-5.0 [facility] ChildrenGlobulin2018-09-26 19:51:00* Test Item Value Reference Range Interpretation Comments Globulin (test code = 19184-9) 3.0 2.3-3.5 [facility] ChildrenAlbumin/Globulin Qxabq9333-83-20 19:51:00 * Test Item Value Reference Range Interpretation Comments Albumin/Globulin Ratio (test code = 1759-0) 1.3 0.8-2.0 [facility] ChildrenAlkaline Axlxucvvuuo0345-62-03 19:51:00* Test Item Value Reference Range Interpretation Comments Alkaline Phosphatase (test code = 6768-6) 43 40-150 [facility] ChildrenUrine FNM0243-26-75 19:44:00* Test Item Value Reference Range Interpretation Comments Urine WBC (test code = 5821-4) NONE 0-5 [facility] ChildrenUrine HOR6333-14-85 19:44:00* Test Item Value Reference Range Interpretation Comments Urine RBC (test code = 74999-8) NONE 0-5 [facility] ChildrenUrine Eocjemkx7885-30-86 19:44:00* Test Item Value Reference Range Interpretation Comments Urine Bacteria (test code = 25773-5) NONE NONE [facility] ChildrenUrine Epithelial Choze2974-63-85 19:44:00 * Test Item Value Reference Range Interpretation Comments Urine Epithelial Cells (test code = 24024-6) NONE NONE [facility] ChildrenUrine Hxyex2276-87-40 19:29:00* Test Item Value Reference Range Interpretation Comments Urine Color (test code = 5778-6) YELLOW YELLOW [facility] ChildrenUrine Vvahrgv2007-61-22 19:29:00* Test Item Value Reference Range Interpretation Comments Urine Clarity (test code = 18923-6) CLEAR CLEAR [facility] ChildrenUrine Specific Bfzhvst0416-61-81 19:29:00 * Test Item Value Reference Range Interpretation Comments Urine Specific Tucker (test code = 5811-5) 1.005 1.010-1.02 5 L [facility] ChildrenUrine wM1180-95-52 19:29:00* Test Item Value Reference Range Interpretation Comments Urine pH (test code = 94646-2) 6 5-7 [facility] ChildrenUrine Leukocyte Xmsraquo8595-73-99 19:29:00* Test Item Value Reference Range Interpretation Comments Urine Leukocyte Esterase (test code = 5799-2) NEGATIVE NEGATIVE [facility] ChildrenUrine Jfxfrse7523-87-78 19:29:00* Test Item Value Reference Range Interpretation Comments Urine Nitrite (test code = 91179-8) NEGATIVE NEGATIVE [facility] ChildrenUrine Hluzypa0043-35-40 19:29:00* Test Item Value Reference Range Interpretation Comments Urine Protein (test code = 5804-0) NEGATIVE NEGATIVE [facility] ChildrenUrine Glucose (UA)2018-02-17 19:29:00* Test Item Value Reference Range Interpretation Comments Urine Glucose (UA) (test code = 2349-9) NEGATIVE NEGATIVE [facility] ChildrenUrine Pfrhrgd7774-18-23 19:29:00* Test Item Value Reference Range Interpretation Comments Urine Ketones (test code = 26613-3) NEGATIVE NEGATIVE [facility] Bcdwbtkhlccp6702-40-88 19:29:00* Test Item Value Reference Range Interpretation Comments Urine Urobilinogen (test code = 12395-6) 0.2 0.2-1 [facility] ChildrenUrine Sdpmhnwvf9186-40-48 19:29:00* Test Item Value Reference Range Interpretation Comments Urine Bilirubin (test code = 1978-6) NEGATIVE NEGATIVE [facility] ChildrenUrine Mccoy4800-05-89 19:29:00* Test Item Value Reference Range Interpretation Comments Urine Blood (test code = 28009-5) NEGATIVE NEGATIVE [facility] ChildrenWhite Blood Tyxgz1628-42-64 19:27:00* Test Item Value Reference Range Interpretation Comments White Blood Count (test code = 6690-2) 6.12 4.8-10.8 [facility] ChildrenRed Blood Vmlyk8872-04-57 19:27:00* Test Item Value Reference Range Interpretation Comments Red Blood Count (test code = 789-8) 3.81 4.3-5.7 L [facility] ChildrenHemoglobin2018-09-26 19:27:00* Test Item Value Reference Range Interpretation Comments Hemoglobin (test code = 12348-4) 11.4 14.0-18.0 L [facility] ChildrenHematocrit2018-09-26 19:27:00* Test Item Value Reference Range Interpretation Comments Hematocrit (test code = 4544-3) 35.7 38.2-49.6 L [facility] ChildrenMean Corpuscular Stxcfr8205-40-27 19:27:00* Test Item Value Reference Range Interpretation Comments Mean Corpuscular Volume (test code = 787-2) 93.7 81-99 [facility] ChildrenMean Corpuscular Xjzghcsxrc3347-92-23 19:27:00* Test Item Value Reference Range Interpretation Comments Mean Corpuscular Hemoglobin (test code = 785-6) 29.9 28-32 [facility] ChildrenMean Corpuscular Hemoglobin Concent 2018-02-17 19:27:00* Test Item Value Reference Range Interpretation Comments Mean Corpuscular Hemoglobin Concent (test code = 786-4) 31.9 31-35 [facility] ChildrenRed Cell Distribution Igboj3009-23-88 19:27:00* Test Item Value Reference Range Interpretation Comments Red Cell Distribution Width (test code = 45791-0) 14.7 11.7 -14.4 H [facility] ChildrenPlatelet Vrjbo9123-70-09 19:27:00* Test Item Value Reference Range Interpretation Comments Platelet Count (test code = 777-3) 310 140-360 [facility] ChildrenNeutrophils (%) (Auto)2018-02-17 19:27:00 * Test Item Value Reference Range Interpretation Comments Neutrophils (%) (Auto) (test code = 30256-1) 42.4 38.7-80.0 [facility] ChildrenLymphocytes (%) (Auto)2018-02-17 19:27:00 * Test Item Value Reference Range Interpretation Comments Lymphocytes (%) (Auto) (test code = 736-9) 37.7 18.0-39.1 [facility] ChildrenMonocytes (%) (Auto)2018-02-17 19:27:00* Test Item Value Reference Range Interpretation Comments Monocytes (%) (Auto) (test code = 5905-5) 15.0 4.4-11.3 H [facility] ChildrenEosinophils (%) (Auto)2018-02-17 19:27:00 * Test Item Value Reference Range Interpretation Comments Eosinophils (%) (Auto) (test code = 713-8) 3.1 0.0-6.0 [facility] ChildrenBasophils (%) (Auto)2018-02-17 19:27:00* Test Item Value Reference Range Interpretation Comments Basophils (%) (Auto) (test code = 706-2) 0.7 0.0-1.0 [facility] ChildrenIM GRANULOCYTES %2018-02-17 19:27:00* Test Item Value Reference Range Interpretation Comments IM GRANULOCYTES % (test code = IM GRANULOCYTES %) 1.1 0.0- 1.0 H [facility] ChildrenNeutrophils # (Auto)2018-02-17 19:27:00* Test Item Value Reference Range Interpretation Comments Neutrophils # (Auto) (test code = 751-8) 2.6 2.1-6.9 [facility] ChildrenLymphocytes # (Auto)2018-02-17 19:27:00* Test Item Value Reference Range Interpretation Comments Lymphocytes # (Auto) (test code = 42735-5) 2.3 1.0-3.2 [facility] ChildrenMonocytes # (Auto)2018-02-17 19:27:00* Test Item Value Reference Range Interpretation Comments Monocytes # (Auto) (test code = 742-7) 0.9 0.2-0.8 H [facility] ChildrenEosinophils # (Auto)2018-02-17 19:27:00* Test Item Value Reference Range Interpretation Comments Eosinophils # (Auto) (test code = 711-2) 0.2 0.0-0.4 [facility] ChildrenBasophils # (Auto)2018-02-17 19:27:00* Test Item Value Reference Range Interpretation Comments Basophils # (Auto) (test code = 704-7) 0.0 0.0-0.1 [facility] ChildrenAbsolute Immature Granulocyte (auto 2018-02-17 19:27:00* Test Item Value Reference Range Interpretation Comments Absolute Immature Granulocyte (auto (remberto t code = Absolute Immature Granulocyte (auto) 0.07 0-0.1 [facility]
[2020-01-03 18:42] LABS: ALBUMIN 4.5 g/dL (3.5-5.0); ALBUMIN/GLOBULIN RATIO 1.3 (0.8-2.0); ANION GAP 19.7 mmol/L (8-16); CALCIUM 10.1 mg/dL (8.4-10.2); CREATININE, SERUM 5.2 mg/dL (0.72-1.25); POTASSIUM 4.7 mmol/L (3.5-5.1)
[2020-01-03 19:20] LABS: CLARITY,URINE SL CLOUDY (CLEAR); COLOR,URINE YELLOW (YELLOW)
[2020-01-03 19:21] LABS: BILIRUBIN,URINE SMALL (NEGATIVE); KETONES,URINE NEGATIVE (NEGATIVE); LEUKOCYTE ESTERASE ,URINE NEGATIVE (NEGATIVE); NITRITE,URINE NEGATIVE (NEGATIVE); PROTEIN,URINE DIPSTICK NEGATIVE (NEGATIVE); URINE UROBILINOGEN 0.2 mg/dL (0.2 - 1)
[2020-01-03 19:33] LABS: AMORPHOUS SEDIMENT,URINE MODERATE (FEW); BACTERIA,URINE FEW /HPF; EPITHELIAL CELLS,URINE RARE /LPF
[2020-01-03] MEDS ORDERED: SODIUM CHLORIDE 0.9% 1000ML 1,000 ML ONE (19:34)
[2020-01-03] MEDS ORDERED: SODIUM CHLORIDE 0.9% 1000ML 1,000 ML IV ONE ×2 (19:45→20:15)
[2020-01-03] MEDS ORDERED: SODIUM CHLORIDE 0.9% 1000ML 1,000 ML IV STA (20:21)
--- OUTSIDE RECORDS SUMMARY | 2020-01-03 20:30 | XMS REPORT | Clinical Summary ---
Author Author ARIELA [facility] Address Unknown Phone Unavailable Care Team Providers Care Counter Stitcher Name Role Phone Kun PCP Allergies No [...] ot Implanted Type Area Manufactur er 06/24/2017 [id number] / / [id number] Matrix Floseal Hemo W/O Ndl 10 Cement/Mandeep Left: Spine ARAUJO:BIO [id number] - [id number] ler/Adhesi Lumbar SCI Implanted: Qty: 2 on 03/18/2016 by Virginia Miller RN [id number] / / [id number] Screw Spine Left: Back [employer] Implanted: Qty: 6 on 03/18/2016 by Cayden Pichardo MD [id number] / / [id number] Oracio Spine Left: Back [employer] Implanted: Qty: 1 on 03/18/2016 by Cayden Pichardo MD [id number] / / Set Screw Spine Left: Back [employer] Implanted: Qty: 6 on 03/18/2016 by Cayden Pichardo MD 10/11/2023 [id number] / / [id number] Interbody Device Spine Left: Back [employer] Implanted: Qty: 1 on 03/18/2016 by Cayden Pichardo MD 11/12/2023 [id number] / / [id number] Interbody Device Spine Left: Back [employer] Implanted: Qty: 1 on 03/18/2016 by Cayden Pichardo MD [id number] / / [id number] Oracio Spine Left: Back [employer] Implanted: Qty: 1 on 03/18/2016 by Cayden Pichardo MD 10/11/2017 [id number] / [id number] / Orthobend Spinal Graft Tissue Left: Back MEDTRON IC Implanted: Qty: 1 on 03/18/2016 by Graft/Subs Cayden Pichardo MD titute 11/04/2017 [id number] / [id number] / Dbm Paste [place] Plus Tissue Left: Back MEDTRON IC Implanted: Qty: 1 on 03/18/2016 by Graft/Subs Cayden Pichardo MD titute Results Not on fileafter 01/02/2019 Insurance Payer Benefit Subscriber ID Type Phone Address Plan / Group [employer] - [employer] CARE [employer]H xxxxxxxxxxx HMO/POS NETWORK Advance Directives For more information, please contact: [address] [address] Date Inactivated Comments Code Status Date Activated 03/24/2016 2:19 PM Full Code 03/18/2016 6:36 PM This code status was determined by: Patient 03/18/2016 6:36 PM Full Code 03/18/2016 7:08 AM This code status was determined by: Patient 11/08/2015 3:52 PM Full Code 11/04/2015 5:13 PM This code status was determined by: Patient
--- OUTSIDE RECORDS SUMMARY | 2020-01-03 20:30 | XMS REPORT | Continuity of Care Document ---
Author Author [facility] t Organization [facility] Address [address] [place] [address] Phone Unavailable Care Team Providers Care Instructor Hairspring Name Role Phone ERIC STONE, LES PCP Unavailable Mateo Otero Attphys Unavailable BRIDGET, Yakelin YICHING Attphys Unavailable BRIDGET, Yakelin YICHING Admphys Unavailable Payers Payer Name Policy Type Policy Number Effective Date Expiration Date Cruz grubbs Kelsey [employer] Medicare Advantage [id number] 2018 00:0 0:00 [facility] [id number] 2010 00:00:00 [facility] Problems Condition Name Condition Details Condition Category Status Onset Date Resolution Date Last Treatment Date Treating Clinician Comments Source Lumbar disc herniation Lumbar disc herniation Disease Active 2016-03-18 00:00:00 [facility] Lumbar stenosis Lumbar stenosis Disease Active 2016-03-18 00:00:00 [facility] Spondylolisthesis, lumbar region Spondylolisthesis, lumbar regio n Disease Active 2016-03-18 00:00:00 [facility] 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, chronic 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, 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 2015-11-08 00:00:00 [facility] PUD (peptic ulcer disease) PUD (peptic ulcer disease) Disease Active 2015-11-08 00:00:00 [facility] ATN (acute tubular necrosis) ATN (acute tubular necrosis) Disease Active 2015-11-06 00:00:00 [facility] Syncope Syncope Disease Active 2015-11-04 00:00:00 [facility] Bradycardia Bradycardia Disease Active 2015-11-04 00:00:00 [facility] Hypotension Hypotension Disease Active 2015-11-04 00:00:00 [facility] Acute renal failure (ARF) Acute renal failure (ARF) Disease Ac tive 2015-11-04 00:00:00 [facility] Allergies, Adverse Reactions, Alerts This patient has no known allergies or adverse reactions. Family History Family Member Diagnosis Comments Start Date Stop Date Source Natural father Cancer [facility] Natural mother Heart disease [facility] Social History Social Habit Start Date Stop Date Quantity Comments Source History of tobacco use Snuff User [facility] Sex Assigned At [facility] Tobacco Comment 2016-03-18 00:00:00 2016-03-18 00:00:00 occassinally [facility] Alcohol Comment 2015-11-04 00:00:00 2015-11-04 00:00:00 socially [facility] Smoking Status Start Date Stop Date Source Former smoker 2016-03-21 00:00:00 2016-03-21 00:00:00 [facility] Medications Ordered Medication Name Filled Medication Name Start Date Stop Da te Current Medication? Ordering Clinician Indication Dosage Frequency Signature (SIG) Comments Components Source Acetaminophen With Codeine (Tylenol With Codeine #3 Ta blet) 1 Each Tablet Acetaminophen With Codeine (Tylenol With Codeine #3 Tablet) 1 Each Tablet 2019-02-11 00:00:00 Yes Edmar Koenig Estimator Jewelry 300 Every 6 Hours as needed for Breakthrough Pain [facility] amLODIPine (NORVASC) 5 MG tablet 2016-03-24 00:00:00 Yes 5mg QD Take 1 tablet (5 mg total) by mouth daily. [facility] lisinopril (PRINIVIL,ZESTRIL) 20 MG tablet 2016-03-24 00:00:00 Yes 20mg QD Take 1 tablet (20 mg total) by mouth daily. [facility] pantoprazole (PROTONIX) 40 MG tablet 2016-03-24 00:00:00 Ye s 40mg Q.5D Take 1 tablet (40 mg total) by mouth 2 (two) times daily. [facility] fenofibrate (TRIGLIDE,LOFIBRA) 160 MG tablet 2015-11-04 17:13:11 Yes 160mg QD Take 160 mg by mouth daily. [facility] Amlodipine Besylate 5 Mg Tablet Amlodipine Besylate 5 Mg Tablet Yes 5 Twice A Day [facility] Baclofen 10 Mg Tablet Baclofen 10 Mg Tablet Yes 10 Four Times Daily [facility] Cyanocobalamin (Vitamin B-12) (B-12) 1,000 Mcg Tablet. er Cyanocobalamin (Vitamin B-12) (B-12) 1,000 Mcg Tablet.er Yes Daily [facility] Diphenhydramine Hcl (Benadryl) 25 Mg Capsule Diphenhyd ramine Hcl (Benadryl) 25 Mg Capsule Yes 50 Twice A Day [facility] Fenofibrate Nanocrystallized (Fenofibrate) 145 Mg Tabl et Fenofibrate Nanocrystallized (Fenofibrate) 145 Mg Tablet Yes 160 Daily [facility] Gabapentin 300 Mg Capsule Gabapentin 300 Mg Capsule Yes 300 Three Times A Day [facility] Hydrocodone Bit/Acetaminophen (Shickley 10-325 Tablet) 1 Each Tablet Hydrocodone Bit/Acetaminophen (Shickley 10-325 Tablet) 1 Each Tablet Yes Every 6 Hours as needed for Neck Pain [facility] Melatonin 3 Mg Tablet.er Melatonin 3 Mg Tablet.er Yes 10 Bedtime [facility] Multivitamin (Multi-Vitamin Daily) 1 Each Tablet Multi vitamin (Multi-Vitamin Daily) 1 Each Tablet Yes Daily [facility] Omeprazole 20 Mg Tablet. Omeprazole 20 Mg Tablet. Yes Daily [facility] Vit C/Vit E Acetate/Lutein/Min (Ocuvite Lutein Capsule ) 1 Each Capsule Vit C/Vit E Acetate/Lutein/Min (Ocuvite Lutein Capsule) 1 Each Capsule Yes Daily [facility] Lisinopril 2.5 Mg Tablet, 2.5 Mg Oral Lisinopril 2.5 Mg Tablet, 2.5 Mg Oral 2019-02-11 00:00:00 No 2.5 Daily [facility] Procedures Procedure Date / Time Performed Performing Clinician [facility] e Repair, inguinal hernia, right 2019-02-10 00:00:00 NEGRITO GARDNER [facility] Limited non-vascular ultrasound of extremity 2019-02-08 00:00:00 JACQUELIN GILL [facility] Ultrasound, renal 2019-02-07 00:00:00 EDMAR KOENIG [facility] Computed tomography of brain without radiopaque contrast 201 01-31-15 00:00:00 DANISH SÁNCHEZ [facility] Encounters Start Date/Time End Date/Time Encounter Type Admission Type Attendi [facility] Care Department Encounter ID Source 2019-02-07 01:21:00 2019-02-07 01:21:00 Admitted Inpatient 1 JACQUELIN GILL [facility] [id number] [facility] 2018-02-17 17:38:00 2018-02-17 17:38:00 Registered Emergency Room [facility] [id number] [facility] Results Test Description Test Time Test Comments Results Result Comments Source CT BRAIN WO 2020-01-03 18:06:00 [facility] [address] [place] [address] Patient Name: TESFAYE HOWARD MR #: [id number] : 1955 Age/Sex: 64/M Req #: [id number] Adm Physician: Ordered by: Wili Otero MD Report #: [id number] Location: ER Room/Bed: Procedure: [id number] CT/CT BRAIN WO Exam Date: 01/03/20 Exam [...] Level (test code = 2951-2) 139 136-145 [facility]iePotassium Opcsm0767-89-48 07:18:00* Test Item Value Reference Range Interpretation Comments Potassium Level (test code = 2823-3) 3.7 3.5-5.1 [facility]ieChloride Ppppv8998-07-68 07:18:00* Test Item Value Reference Range Interpretation Comments Chloride Level (test code = 2075-0) 104 98-107 [facility]ieCarbon Dioxide Uhgxt1514-47-01 07:18:00* Test Item Value Reference Range Interpretation Comments Carbon Dioxide Level (test code = 8-9) 26 -29 [facility]ieAnion Evt8478-21-67 07:18:00* Test Item Value Reference Range Interpretation Comments Anion Gap (test code = 51042-0) 12.7 8-16 [facility]ieBlood Urea Ofhrgtod0047-41-44 07:18:00* Test Item Value Reference Range Interpretation Comments Blood Urea Nitrogen (test code = 3094-0) 12 7- [facility]ieCreatinine2019-09-20 07:18:00* Test Item Value Reference Range Interpretation Comments Creatinine (test code = 2160-0) 1.29 0.72-1.25 H [facility]ieBUN/Creatinine Pcdvb6951-05-14 07:18:00* Test Item Value Reference Range Interpretation Comments BUN/Creatinine Ratio (test code = 3097-3) 9 11-16 [facility]ieEstimat Glomerular Filtration Rate 2019-02-11 07:18:00* Test Item Value Reference Range Interpretation Comments Estimat Glomerular Filtration Rate (test code = 367148052) 56 >60 L Ranges were taken from the National Kidney Disease Education Program and the [facility] [employer] literature.Reference ranges:60 or greater: Nkzpqt06-94 ( for 3 consecutive months): Chronic kidney disease 15 or less: Kidney failureBaylor Scott & White Medical Center – WaxahachieGlucose Ppchp8056-14-84 07:18:00* Test Item Value Reference Range Interpretation Comments Glucose Level (test code = ABC5323) 97 74-118 [facility]ieCalcium Wajcu4393-76-54 07:18:00* Test Item Value Reference Range Interpretation Comments Calcium Level (test code = 57086-6) 9.3 8.4-10.2 [facility]ieCreatine Ukvjeo4468-89-69 07:18:00* Test Item Value Reference Range Interpretation Comments Creatine Kinase (test code = 2157-6) 195 30-200 [facility]ieWhite Blood Xoepb4533-11-82 06:45:00* Test Item Value Reference Range Interpretation Comments White Blood Count (test code = 6690-2) 10.21 4.8-10.8 [facility]achieRed Blood Jucxt1885-37-47 06:45:00* Test Item Value Reference Range Interpretation Comments Red Blood Count (test code = 789-8) 3.65 4.3-5.7 L [facility]ieHemoglobin2019-09-20 06:45:00* Test Item Value Reference Range Interpretation Comments Hemoglobin (test code = 18858-4) 10.9 14.0-18.0 L [facility]ieHematocrit2019-09-20 06:45:00* Test Item Value Reference Range Interpretation Comments Hematocrit (test code = 4544-3) 34.0 38.2-49.6 L [facility] WaxahachieMean Corpuscular Koszuy3304-29-70 06:45:00* Test Item Value Reference Range Interpretation Comments Mean Corpuscular Volume (test code = 787-2) 93.2 81-99 [facility] W[facility]achieMean Corpuscular Avrytuhpng7264-53-89 06:45:00* Test Item Value Reference Range Interpretation Comments Mean Corpuscular Hemoglobin (test code = 785-6) 29.9 28-32 [facility] Wax[facility]achieMean Corpuscular Hemoglobin Concent 2019-02-11 06:45:00* Test Item Value Reference Range Interpretation Comments Mean Corpuscular Hemoglobin Concent (test code = 786-4) 32.1 31-35 [facility]achieRed Cell Distribution Janfe8451-88-50 06:45:00* Test Item Value Reference Range Interpretation Comments Red Cell Distribution Width (test code = 84403-0) 15.4 11.7 -14.4 H [facility]achiePlatelet Fprha3773-01-20 06:45:00* Test Item Value Reference Range Interpretation Comments Platelet Count (test code = 777-3) 276 140-360 [facility]ieNeutrophils (%) (Auto)2019-02-11 06:45:00 * Test Item Value Reference Range Interpretation Comments Neutrophils (%) (Auto) (test code = 85707-7) 67.8 38.7-80.0 [facility]ieLymphocytes (%) (Auto)2019-02-11 06:45:00 * Test Item Value Reference Range Interpretation Comments Lymphocytes (%) (Auto) (test code = 736-9) 16.5 18.0-39.1 L [facility]ieMonocytes (%) (Auto)2019-02-11 06:45:00* Test Item Value Reference Range Interpretation Comments Monocytes (%) (Auto) (test code = 5905-5) 13.9 4.4-11.3 H [facility]ieEosinophils (%) (Auto)2019-02-11 06:45:00 * Test Item Value Reference Range Interpretation Comments Eosinophils (%) (Auto) (test code = 713-8) 1.2 0.0-6.0 [facility]ieBasophils (%) (Auto)2019-02-11 06:45:00* Test Item Value Reference Range Interpretation Comments Basophils (%) (Auto) (test code = 706-2) 0.1 0.0-1.0 [facility]achieIM GRANULOCYTES %2019-02-11 06:45:00* Test Item Value Reference Range Interpretation Comments IM GRANULOCYTES % (test code = IM GRANULOCYTES %) 0.5 0.0- 1.0 [facility]ieNeutrophils # (Auto)2019-02-11 06:45:00* Test Item Value Reference Range Interpretation Comments Neutrophils # (Auto) (test code = 751-8) 6.9 2.1-6.9 [facility]ieLymphocytes # (Auto)2019-02-11 06:45:00* Test Item Value Reference Range Interpretation Comments Lymphocytes # (Auto) (test code = 10828-4) 1.7 1.0-3.2 [facility]ieMonocytes # (Auto)2019-02-11 06:45:00* Test Item Value Reference Range Interpretation Comments Monocytes # (Auto) (test code = 742-7) 1.4 0.2-0.8 H [facility]ieEosinophils # (Auto)2019-02-11 06:45:00* Test Item Value Reference Range Interpretation Comments Eosinophils # (Auto) (test code = 711-2) 0.1 0.0-0.4 [facility]ieBasophils # (Auto)2019-02-11 06:45:00* Test Item Value Reference Range Interpretation Comments Basophils # (Auto) (test code = 704-7) 0.0 0.0-0.1 [facility]achieAbsolute Immature Granulocyte (auto 2019-02-11 06:45:00* Test Item Value Reference Range Interpretation Comments Absolute Immature Granulocyte (auto (remberto t code = Absolute Immature Granulocyte (auto) 0.05 0-0.1 [facility]achieMagnesium Rfeoq1616-61-68 06:11:00* Test Item Value Reference Range Interpretation Comments Magnesium Level (test code = 38616-6) 1.8 1.3-2.1 [facility]achieTotal Ypotsulyd8613-73-44 06:11:00* Test Item Value Reference Range Interpretation Comments Total Bilirubin (test code = 1975-2) 0.7 0.2-1.2 [facility] W[facility]ahachieAspartate Amino Transf (AST/SGOT) 2019-02-09 06:11:00* Test Item Value Reference Range Interpretation Comments Aspartate Amino Transf (AST/SGOT) (test code = Aspartate Amino Transf (AST/SGOT)) 77 5-34 H [facility]achieAlanine Aminotransferase (ALT/SGPT) 2019-02-09 06:11:00* Test Item Value Reference Range Interpretation Comments Alanine Aminotransferase (ALT/SGPT) (test code = 1742-6) 49 0-55 [facility]ieTotal Otkxrlw3239-25-17 06:11:00* Test Item Value Reference Range Interpretation Comments Total Protein (test code = 2885-2) 6.0 6.5-8.1 L [facility]achieAlbumin2019-09-18 06:11:00* Test Item Value Reference Range Interpretation Comments Albumin (test code = 1751-7) 3.2 3.5-5.0 L [facility]achieGlobulin2019-09-18 06:11:00* Test Item Value Reference Range Interpretation Comments Globulin (test code = 33431-6) 2.8 2.3-3.5 [facility]achieAlbumin/Globulin Vkzqu8001-93-75 06:11:00 * Test Item Value Reference Range Interpretation Comments Albumin/Globulin Ratio (test code = 1759-0) 1.1 0.8-2.0 [facility]achieAlkaline Xbzbckrfdcu1825-83-46 06:11:00* Test Item Value Reference Range Interpretation Comments Alkaline Phosphatase (test code = 6768-6) 39 40-150 L [facility]achiePhosphorus Asejs2686-99-11 16:57:00* Test Item Value Reference Range Interpretation Comments Phosphorus Level (test code = ) 2.1 2.3-4.7 L [facility] W[facility]ahachieUS EXTREMITY ROSALES DOW-LEN6396-58-17 09:04:00 [place] [address] Patient Name: TESFAYE HOWARD MR #: [id number] : 1955 Age/Sex: 63/M Req #: [id number] Adm Physician: JACQUELIN GILL MD Ordered by: JACQUELIN GILL MD Report #: [id number] Location: [facility] Room/Bed: [place] [address] Procedure: [id number] US/ US EXTREMITY ROSALES NON-VAS Exam Date: [...] JACQUELIN GILL MD CHEST SINGLE (PORTABLE)2019-02-08 06:47:00 [place] [address] Patient Name: TESFAYE HOWARD MR #: [id number] : 1955 Age/Sex: 63/M Req #: [id number] Adm Physician: JACQUELIN IGLL MD Ordered by: HELENE WAGGONER MD Report #: [id number] Location: [facility] Room/Bed: [place] [address] Procedure: [id number] D X/CHEST SINGLE (PORTABLE) Exam Date: 02/08/19 [...] COPY TO: HELENE WAGGONER MD, ABIM Direct Qwbdygojk2922-29-56 06:14:00* Test Item Value Reference Range Interpretation Comments Direct Bilirubin (test code = 60435-6) 0.4 0.0-0.5 [facility]ahachieAcetaminophen Qcxcv6132-24-78 15:34:00* Test Item Value Reference Range Interpretation Comments Acetaminophen Level (test code = 28790-9) < 3 10-30 L [facility] Texasalicylates Gabla8172-96-39 15:34:00* Test Item Value Reference Range Interpretation Comments Salicylates Level (test code = 4024-6) < 5.0 0-30 [facility] W[facility]achieUS RENAL RETROPERITONEAL XUHF9232-00-34 11:46:00 [place] [address] Patient Name: TESFAYE HOWARD MR #: [id number] : 1955 Age/Sex: 63/M Req #: [id number] Adm Physician: JACQUELIN GILL MD Ordered by: EDMAR KOENIG TRACK WALKER Report #: [id number] Location: [facility] Room/Bed: [place] [address] Procedure: [id number] US /US RENAL RETROPERITONEAL COMP Exam Date: [...] 1148 Transcribed By: SLAVA on 02/07/19 1148 [employer]ER PICK Y TO: EDMAR KOENIG NP Arterial Blood dJ2817-37-08 10:21:00* Test Item Value Reference Range Interpretation Comments Arterial Blood pH (test code = 2744-1) 7.31 7.31-7.41 [facility]achieArterial Blood Partial Pressure CO2 2019-02-07 10:21:00* Test Item Value Reference Range Interpretation Comments Arterial Blood Partial Pressure CO2 (test code = 2018-12) 44 41-51 [facility]achieArterial Blood Partial Pressure O2 2019-02-07 10:21:00* Test Item Value Reference Range Interpretation Comments Arterial Blood Partial Pressure O2 (test code = 2018-12) 100 80-105 [facility]achieArterial Blood DER63567-17-94 10:21:00* Test Item Value Reference Range Interpretation Comments Arterial Blood HCO3 (test code = 1960-4) 22 23-28 L [facility]achieArterial Blood Base Kantrt5491-57-55 10:21:00* Test Item Value Reference Range Interpretation Comments Arterial Blood Base Excess (test code = 1925-7) -4.0 -2-3 L [facility]achieArterial Blood Oxygen Saturation 2019-02-07 10:21:00* Test Item Value Reference Range Interpretation Comments Arterial Blood Oxygen Saturation (test code = 2708-6) 97.0 95-98 [facility] WaxahachieFiO22019-09-16 10:21:00* Test Item Value Reference Range Interpretation Comments FiO2 (test code = FiO2) 28 2L/M NC LEFT RADIALCHI [facility] LufkinUrine UOS5952-20-67 09:59:00* Test Item Value Reference Range Interpretation Comments Urine WBC (test code = 5821-4) 6-10 0-5 H [facility]achieUrine PPU8656-35-22 09:59:00* Test Item Value Reference Range Interpretation Comments Urine RBC (test code = 53148-0) 6-10 0-5 H [facility]achieUrine Lpukdjmp2674-42-69 09:59:00* Test Item Value Reference Range Interpretation Comments Urine Bacteria (test code = 77265-5) RARE NONE [facility]achieUrine Epithelial Lxjxi5137-11-04 09:59:00 * Test Item Value Reference Range Interpretation Comments Urine Epithelial Cells (test code = 65413-3) FEW NONE [facility] W[facility]achieUrine Bnors6107-19-97 09:53:00* Test Item Value Reference Range Interpretation Comments Urine Color (test code = 5778-6) YELLOW YELLOW [facility]achieUrine Jmkfezm6350-57-98 09:53:00* Test Item Value Reference Range Interpretation Comments Urine Clarity (test code = 42354-1) SL CLOUDY CLEAR H [facility] W[facility]achieUrine Specific Rzurrca7858-94-43 09:53:00 * Test Item Value Reference Range Interpretation Comments Urine Specific [place] (test code = 5811-5) 1.015 1.010-1.02 5 [facility]achieUrine hM3710-35-30 09:53:00* Test Item Value Reference Range Interpretation Comments Urine pH (test code = 07151-6) 5.5 5-7 [facility]ieUrine Leukocyte Ctlidmzu8213-52-52 09:53:00* Test Item Value Reference Range Interpretation Comments Urine Leukocyte Esterase (test code = 22347-5) NEGATIVE NEGATIV E [facility]ieUrine Qifpwtn4896-10-76 09:53:00* Test Item Value Reference Range Interpretation Comments Urine Nitrite (test code = 27660-5) NEGATIVE NEGATIVE [facility]achieUrine Iroskms7795-17-92 09:53:00* Test Item Value Reference Range Interpretation Comments Urine Protein (test code = 01916-1) NEGATIVE NEGATIVE [facility]achieUrine Glucose (UA)2019-02-07 09:53:00* Test Item Value Reference Range Interpretation Comments Urine Glucose (UA) (test code = 99412-5) NEGATIVE NEGATIVE [facility]achieUrine Iyofkza5771-41-82 09:53:00* Test Item Value Reference Range Interpretation Comments Urine Ketones (test code = 70430-3) NEGATIVE NEGATIVE [facility]ieUrine Vbskmmzmqxai0056-90-11 09:53:00* Test Item Value Reference Range Interpretation Comments Urine Urobilinogen (test code = 54627-2) 0.2 0.2-1 [facility]ieUrine Zslmmpflw7225-77-67 09:53:00* Test Item Value Reference Range Interpretation Comments Urine Bilirubin (test code = 1977-8) NEGATIVE NEGATIVE [facility]achieUrine Icdwi4129-72-73 09:53:00* Test Item Value Reference Range Interpretation Comments Urine Blood (test code = 66806-0) 1+ NEGATIVE [facility]achieCreatine Kinase AV8295-08-77 05:09:00* Test Item Value Reference Range Interpretation Comments Creatine Kinase MB (test code = 83469-1) 24.90 0-5.0 H [facility]achieTroponin F8370-73-77 05:09:00* Test Item Value Reference Range Interpretation Comments Troponin I (test code = YZW3258) 0.099 0-0.300 [facility]achieUrine Opiates Ylmtvg6641-11-23 04:51:00* Test Item Value Reference Range Interpretation Comments Urine Opiates Screen (test code = 82262-2) POSITIVE NEGATIVE H ALL TESTS PERFORMED MANUALLY ON Code71 TOX/SEE TEST This test provides only a sc reen. Positive results should be repeated by a confirmatory test.[facility]ieUrine Barbiturates Evliul4726-68-27 04:51:00* Test Item Value Reference Range Interpretation Comments Urine Barbiturates Screen (test code = 626631311) NEGATIVE NEGA TIVE [facility]achieUrine Phencyclidine Fmwiyp0352-62-24 04:51:00* Test Item Value Reference Range Interpretation Comments Urine Phencyclidine Screen (test code = 74299-2) NEGATIVE NEGAT YOLY [facility]achieUrine Amphetamines Ecghqh1826-89-12 04:51:00* Test Item Value Reference Range Interpretation Comments Urine Amphetamines Screen (test code = 81901-0) NEGATIVE NEGATI VE [facility]achieUrine Methamphetamines Qlhvxz5756-46-67 04:51:00* Test Item Value Reference Range Interpretation Comments Urine Methamphetamines Screen (test code = Urine Metha mphetamines Screen) NEGATIVE NEGATIVE [facility]ieUrine Benzodiazepines Yzjjbu1897-68-43 04:51:00* Test Item Value Reference Range Interpretation Comments Urine Benzodiazepines Screen (test code = 43177-8) POSITIVE NEG ATIVE H This test provides only a screen. Positive results should be repeated by a confi rmatory test.[facility]ie[facility]rine Cocaine Screen 2019-02-07 04:51:00* Test Item Value Reference Range Interpretation Comments Urine Cocaine Screen (test code = 3398-5) NEGATIVE NEGATIVE [facility]ieUrine Cannabinoids Oyuucv5357-29-92 04:51:00* Test Item Value Reference Range Interpretation Comments Urine Cannabinoids Screen (test code = 78214-3) NEGATIVE NEGATI VE THESE RESULTS ARE FOR MEDICAL TREATMENT ONLYTHIS REPORT CONTAINS UNCONFIR MED SCREENING RESULTS*POSITIVE RESULTS WILL BE CONFIRMED BY REFERENCE LAB UPON R EQUEST CUT-OFFDRUG CLASS CONCENTRATION ng/mLAmphetamines 1000Methamphetamines 1000Cocaine 300Opiate 300Phencyc lidine 25Cannabinoid 50Barbiturates 300Benzodiazepine 300M[address]ad[address] Methadone Rvhlgb9637-06-04 04:51:00* Test Item Value Reference Range Interpretation Comments Urine Methadone Screen (test code = 33556-6) NEGATIVE NEGATIVE THESE RESULTS ARE FOR MEDICAL TREATMENT ONLYTHIS REPORT CONTAINS UNCONFIR MED SCREENING RESULTS*POSITIVE RESULTS WILL BE CONFIRMED BY REFERENCE LAB UPON R EQUEST CUT-OFFDRUG CLASS CONCENTRATION ng/mLAmphetamines 1000Methamphetamines 1000Cocaine Metabolite 300Opiate 300Phencyc lidine 25Cannabinoid 50Barbiturates 300Benzodiazepine 300Methadone 300[facility] S[facility]LE (PORTABLE)2019-02-07 01:30:00 [facility] [address] [address] Patient Name: TESFAYE HOWARD MR #: [id number] : 1955 Age/Sex: 63/M Req #: [id number] Adm Physician: JACQUELIN GILL MD Ordered by: DANISH SÁNCHEZ DO Report #: [id number] Location: [facility] Room/Bed: [place] [address] Procedure: [id number] DX/C HEST SINGLE (PORTABLE) Exam Date: 02/06/19 [...] COPY TO: DANISH SÁNCHEZ DO Lactic Acid Kxrum5497-66-86 01:18:00* Test Item Value Reference Range Interpretation Comments Lactic Acid Level (test code = Lactic Acid Level) 9.9 4.5- 19.8 [facility]ieLipase2019-09-15 23:24:00* Test Item Value Reference Range Interpretation Comments Lipase (test code = 3040-3) 73 8-78 [facility]ieEthyl Alcohol Urose7086-65-98 23:23:00* Test Item Value Reference Range Interpretation Comments Ethyl Alcohol Level (test code = 5643-2) < 10.0 0.0-10.0 [facility]ieBedside Klwopro6137-14-03 23:11:00* Test Item Value Reference Range Interpretation Comments Bedside Glucose (test code = 73758-4) 109 70-120 Meter ID: [id number] Scott & [facility] WaxahachieCT BRAIN LO4705-51-64 22:35:[address] [address] Patient Name: TESFAYE HOWARD MR #: [id number] : 1955 Age/Sex: 63/M Req #: [id number] Adm Physician: Ordered by: DANISH SÁNCHEZ DO Report #: [id number] Location: ER Room/Bed: Procedure: [id number] CT/CT BRAIN WO Exam Date: 02/06/19 Exam [...] 02/06/192247 COPY TO: DANISH SÁNCHEZ DO Sodium Wubvs2859-16-09 19:51:00* Test Item Value Reference Range Interpretation Comments Sodium Level (test code = 2951-2) 139 136-145 [facility]iePotassium Vluft3512-53-11 19:51:00* Test Item Value Reference Range Interpretation Comments Potassium Level (test code = 2823-3) 4.5 3.5-5.1 [facility]achieChloride Crdjq1330-12-56 19:51:00* Test Item Value Reference Range Interpretation Comments Chloride Level (test code = 2075-0) 104 98-107 [facility]ieCarbon Dioxide Dyxdi1939-03-80 19:51:00* Test Item Value Reference Range Interpretation Comments Carbon Dioxide Level (test code = 2028-9) 25 22-29 [facility] Wax[facility]achieAnion Sea3562-35-07 19:51:00* Test Item Value Reference Range Interpretation Comments Anion Gap (test code = 66030-2) 14.5 8-16 [facility]ieBlood Urea Crdhascd8720-72-41 19:51:00* Test Item Value Reference Range Interpretation Comments Blood Urea Nitrogen (test code = 3094-0) 29 7-26 H [facility]ieCreatinine2018-09-26 19:51:00* Test Item Value Reference Range Interpretation Comments Creatinine (test code = 2160-0) 2.14 0.72-1.25 H [facility]achieBUN/Creatinine Xdpkv1167-88-61 19:51:00* Test Item Value Reference Range Interpretation Comments BUN/Creatinine Ratio (test code = 3097-3) 14 6-25 [facility] WaxahachieEstimat Glomerular Filtration Rate 2018-02-17 19:51:00* Test Item Value Reference Range Interpretation Comments Estimat Glomerular Filtration Rate (test code = 406126047) 31 >60 L Ranges were taken from the National Kidney Disease Education Program and the Critical access hospital Kidney Foundation literature.Reference ranges:60 or greater: Mlogpa90-29 ( for 3 consecutive months): Chronic kidney disease 15 or less: Kidney failureBaylor Scott & White Medical Center – WaxahachieGlucose Iqqwd5570-84-19 19:51:00* Test Item Value Reference Range Interpretation Comments Glucose Level (test code = CEG3189) 86 74-118 [facility]achieCalcium Weddd4058-39-04 19:51:00* Test Item Value Reference Range Interpretation Comments Calcium Level (test code = 84407-9) 9.5 8.4-10.2 [facility]achieTotal Qzveavmak1609-53-81 19:51:00* Test Item Value Reference Range Interpretation Comments Total Bilirubin (test code = 1975-2) 0.4 0.2-1.2 [facility]axahachieAspartate Amino Transf (AST/SGOT) 2018-02-17 19:51:00* Test Item Value Reference Range Interpretation Comments Aspartate Amino Transf (AST/SGOT) (test code = Aspartate Amino Transf (AST/SGOT)) 37 5-34 H [facility]achieAlanine Aminotransferase (ALT/SGPT) 2018-02-17 19:51:00* Test Item Value Reference Range Interpretation Comments Alanine Aminotransferase (ALT/SGPT) (test code = 1742-6) 38 0-55 [facility]achieTotal Mmsppau3650-40-75 19:51:00* Test Item Value Reference Range Interpretation Comments Total Protein (test code = 2885-2) 7.0 6.5-8.1 [facility]achieAlbumin2018-09-26 19:51:00* Test Item Value Reference Range Interpretation Comments Albumin (test code = 1751-7) 4.0 3.5-5.0 [facility]achieGlobulin2018-09-26 19:51:00* Test Item Value Reference Range Interpretation Comments Globulin (test code = 29130-1) 3.0 2.3-3.5 [facility]ax[facility]achieAlbumin/Globulin Bawab6943-96-19 19:51:00 * Test Item Value Reference Range Interpretation Comments Albumin/Globulin Ratio (test code = 1759-0) 1.3 0.8-2.0 [facility]achieAlkaline Pcodpzxglfp6945-85-20 19:51:00* Test Item Value Reference Range Interpretation Comments Alkaline Phosphatase (test code = 6768-6) 43 40-150 [facility]achieUrine VRC3244-12-57 19:44:00* Test Item Value Reference Range Interpretation Comments Urine WBC (test code = 5821-4) NONE 0-5 [facility] W[facility]achieUrine GOF6035-91-32 19:44:00* Test Item Value Reference Range Interpretation Comments Urine RBC (test code = 44107-4) NONE 0-5 [facility]ieUrine Kqnvxfrf2909-61-78 19:44:00* Test Item Value Reference Range Interpretation Comments Urine Bacteria (test code = 12009-8) NONE NONE [facility]achieUrine Epithelial Zetwt2350-59-13 19:44:00 * Test Item Value Reference Range Interpretation Comments Urine Epithelial Cells (test code = 88283-1) NONE NONE [facility]achieUrine Thzqy0598-33-90 19:29:00* Test Item Value Reference Range Interpretation Comments Urine Color (test code = 5778-6) YELLOW YELLOW [facility]achieUrine Hhiqwok9469-65-49 19:29:00* Test Item Value Reference Range Interpretation Comments Urine Clarity (test code = 56521-7) CLEAR CLEAR [facility]achieUrine Specific Dtewxkx4472-41-30 19:29:00 * Test Item Value Reference Range Interpretation Comments Urine Specific [place] (test code = 5811-5) 1.005 1.010-1.02 5 L [facility]ieUrine wL5817-62-45 19:29:00* Test Item Value Reference Range Interpretation Comments Urine pH (test code = 36623-9) 6 5-7 [facility]ieUrine Leukocyte Zlebtvvb1190-33-29 19:29:00* Test Item Value Reference Range Interpretation Comments Urine Leukocyte Esterase (test code = 5799-2) NEGATIVE NEGATIVE [facility]ieUrine Kgvaraq5568-52-02 19:29:00* Test Item Value Reference Range Interpretation Comments Urine Nitrite (test code = 18312-6) NEGATIVE NEGATIVE [facility]achieUrine Zfluoza5178-68-68 19:29:00* Test Item Value Reference Range Interpretation Comments Urine Protein (test code = 5804-0) NEGATIVE NEGATIVE [facility]ieUrine Glucose (UA)2018-02-17 19:29:00* Test Item Value Reference Range Interpretation Comments Urine Glucose (UA) (test code = 2349-9) NEGATIVE NEGATIVE [facility]achieUrine Tcpmjfe9947-05-13 19:29:00* Test Item Value Reference Range Interpretation Comments Urine Ketones (test code = 65038-5) NEGATIVE NEGATIVE [facility] Qtovslwdagza9518-18-30 19:29:00* Test Item Value Reference Range Interpretation Comments Urine Urobilinogen (test code = 53847-0) 0.2 0.2-1 [facility]ieUrine Bvawrobzp0693-10-19 19:29:00* Test Item Value Reference Range Interpretation Comments Urine Bilirubin (test code = 1978-6) NEGATIVE NEGATIVE [facility]ieUrine Nuvxn9200-60-20 19:29:00* Test Item Value Reference Range Interpretation Comments Urine Blood (test code = 66323-0) NEGATIVE NEGATIVE [facility]ieWhite Blood Ldzfj4723-17-70 19:27:00* Test Item Value Reference Range Interpretation Comments White Blood Count (test code = 6690-2) 6.12 4.8-10.8 [facility] W[facility]achieRed Blood Oivbu0966-00-95 19:27:00* Test Item Value Reference Range Interpretation Comments Red Blood Count (test code = 789-8) 3.81 4.3-5.7 L [facility] Wax[facility]achieHemoglobin2018-09-26 19:27:00* Test Item Value Reference Range Interpretation Comments Hemoglobin (test code = 89058-5) 11.4 14.0-18.0 L [facility]achieHematocrit2018-09-26 19:27:00* Test Item Value Reference Range Interpretation Comments Hematocrit (test code = 4544-3) 35.7 38.2-49.6 L [facility] Wax[facility]achieMean Corpuscular Iihljv5233-05-59 19:27:00* Test Item Value Reference Range Interpretation Comments Mean Corpuscular Volume (test code = 787-2) 93.7 81-99 [facility] Wax[facility]achieMean Corpuscular Anybjshviu1533-04-33 19:27:00* Test Item Value Reference Range Interpretation Comments Mean Corpuscular Hemoglobin (test code = 785-6) 29.9 28-32 [facility] Wax[facility]achieMean Corpuscular Hemoglobin Concent 2018-02-17 19:27:00* Test Item Value Reference Range Interpretation Comments Mean Corpuscular Hemoglobin Concent (test code = 786-4) 31.9 31-35 [facility] Wax[facility]achieRed Cell Distribution Lfdue2116-46-68 19:27:00* Test Item Value Reference Range Interpretation Comments Red Cell Distribution Width (test code = 88906-1) 14.7 11.7 -14.4 H [facility] WaxahachiePlatelet Digdk4322-92-48 19:27:00* Test Item Value Reference Range Interpretation Comments Platelet Count (test code = 777-3) 310 140-360 [facility]achieNeutrophils (%) (Auto)2018-02-17 19:27:00 * Test Item Value Reference Range Interpretation Comments Neutrophils (%) (Auto) (test code = 56394-0) 42.4 38.7-80.0 [facility]achieLymphocytes (%) (Auto)2018-02-17 19:27:00 * Test Item Value Reference Range Interpretation Comments Lymphocytes (%) (Auto) (test code = 736-9) 37.7 18.0-39.1 [facility]achieMonocytes (%) (Auto)2018-02-17 19:27:00* Test Item Value Reference Range Interpretation Comments Monocytes (%) (Auto) (test code = 5905-5) 15.0 4.4-11.3 H [facility]ieEosinophils (%) (Auto)2018-02-17 19:27:00 * Test Item Value Reference Range Interpretation Comments Eosinophils (%) (Auto) (test code = 713-8) 3.1 0.0-6.0 [facility]achieBasophils (%) (Auto)2018-02-17 19:27:00* Test Item Value Reference Range Interpretation Comments Basophils (%) (Auto) (test code = 706-2) 0.7 0.0-1.0 [facility]achieIM GRANULOCYTES %2018-02-17 19:27:00* Test Item Value Reference Range Interpretation Comments IM GRANULOCYTES % (test code = IM GRANULOCYTES %) 1.1 0.0- 1.0 H [facility]ieNeutrophils # (Auto)2018-02-17 19:27:00* Test Item Value Reference Range Interpretation Comments Neutrophils # (Auto) (test code = 751-8) 2.6 2.1-6.9 [facility]achieLymphocytes # (Auto)2018-02-17 19:27:00* Test Item Value Reference Range Interpretation Comments Lymphocytes # (Auto) (test code = 86377-0) 2.3 1.0-3.2 [facility]ieMonocytes # (Auto)2018-02-17 19:27:00* Test Item Value Reference Range Interpretation Comments Monocytes # (Auto) (test code = 742-7) 0.9 0.2-0.8 H [facility]ieEosinophils # (Auto)2018-02-17 19:27:00* Test Item Value Reference Range Interpretation Comments Eosinophils # (Auto) (test code = 711-2) 0.2 0.0-0.4 [facility]achieBasophils # (Auto)2018-02-17 19:27:00* Test Item Value Reference Range Interpretation Comments Basophils # (Auto) (test code = 704-7) 0.0 0.0-0.1 [facility] WaxahachieAbsolute Immature Granulocyte (auto 2018-02-17 19:27:00* Test Item Value Reference Range Interpretation Comments Absolute Immature Granulocyte (auto (remberto t code = Absolute Immature Granulocyte (auto) 0.07 0-0.1 [facility]
[2020-01-03 20:33] VITALS: BP 129/90
--- NOTE | 2020-01-03 20:33 | NUR ---
patient is a new admit that arrived via stretcher. patient is not talking. patient has been transferred into the bed. bed is in the lowest position and call light is within reach. will continue to monitor patient.
[2020-01-03 20:35] VITALS: BP 129/90
[2020-01-03] MEDS ORDERED: XARELTO20 MG PO (22:14)
[2020-01-03] MEDS ORDERED: BUMETANIDE1 MG PO (22:14)
[2020-01-03] MEDS ORDERED: METOPROLOL SUCC50 MG PO (22:14)
[2020-01-04] VITALS (7 sets, daily range): BP systolic 103–154; BP diastolic 42–91
[2020-01-04 02:53] LABS: CREATINE KINASE MB 7.2 ng/mL (0-5.0)
[2020-01-04 04:53] LABS: BASOPHILS % 0.3 % (0.0-1.0); EOSINOPHILS # (AUTO) 0.1 (0.0-0.4); EOSINOPHILS % 1.3 % (0.0-6.0); HEMATOCRIT 32.9 % (38.2-49.6); HEMOGLOBIN 10.5 g/dL (14.0-18.0); LYMPHOCYTES # (AUTO) 1.6 (1.0-3.2); LYMPHOCYTES % 22.2 % (18.0-39.1); MEAN CORPUSCULAR HEMOGLOBIN 30.6 pg (28-32); MEAN CORPUSCULAR HGB CONC 31.9 g/dL (31-35); MEAN CORPUSCULAR VOLUME 95.9 fL (81-99); MONOCYTES % 14.1 % (4.4-11.3); NEUTROPHILS # (AUTO) 4.4 (2.1-6.9); NEUTROPHILS % 61.5 % (38.7-80.0); PLATELET COUNT 215 x10e3/uL (140-360); RED BLOOD COUNT 3.43 x10e6/uL (4.3-5.7); RED CELL DISTRIBUTION WIDTH 14.4 % (11.7-14.4)
[2020-01-04 05:31] LABS: ALBUMIN 3.5 g/dL (3.5-5.0); ALBUMIN/GLOBULIN RATIO 1.3 (0.8-2.0); ANION GAP 15.3 mmol/L (8-16); CALCIUM 8.6 mg/dL (8.4-10.2); CREATININE, SERUM 3.5 mg/dL (0.72-1.25); POTASSIUM 4.3 mmol/L (3.5-5.1)
--- NOTE | 2020-01-04 06:46 | NUR ---
patient is lying in the bed. bed is in the lowest position and call light is within reach.
[2020-01-04] MEDS ORDERED: ACETAMINOPHEN 325 MG TAB PO PRN (11:45)
[2020-01-04] MEDS ORDERED: ONDANSETRON HCL INJ 2MG/ML 2ML 2 MG/ML VIAL IV PRN (11:45)
[2020-01-04] MEDS: SODIUM CHLORIDE 0.9% 1000ML 1,000 ML IV SCH ×3 (11:51→15:29)
--- NOTE | 2020-01-04 13:42 | NUR ---
Trejo catheter discontinued as ordered. Patient due to void
--- NOTE | 2020-01-04 16:20 | NUR ---
Report given to Daysi SOOD of patient's status. Aware patient due to void. Transferred to room 297 via bed. No s/s of acute distress noted. All personal belongings taken with patient. Patient's daughter, Sharifa, aware of transfer.
--- NOTE | 2020-01-04 16:40 | NUR ---
AWAKE AND ALERT. ACYANOTIC. RESTING IN BED. ARRIVED TO UNIT AT APPROXIMATELY 1600. NO DISTRESS NOTED. CALL LIGHT IN REACH. SIDE RAILS UP X2. BED LOW AND LOCKED. BED ALARM ACTIVE.
--- NOTE | 2020-01-04 19:15 | NUR ---
Visited pt in room during nursing rounds. Patient alert and oriented x0. Pt does not know his name, where he's at and what time it is. Pt lying on his side and appear he does not want to be bothered. Pt just copies words you say to him. Example is when nurse tells patient his name (Zeinab). The patient keeps saying ZEINAB....ZEINAB...ZEINAB... multiple times. Pt is due to void and diaper appears clean and dry. On IVF (NS at 100ml/hr). Bed alarm active. Call estrada within reach. Will monitor closely.
--- NOTE | 2020-01-04 20:29 | NUR ---
Spoke with son (Rory Rush) over phone and informed him of patient's condition especially of his confused state at this time. Nurse (Damien) requested if Rory can come tonight and stay with patient. Son agreed and will be here (at [facility]) in an hour.
--- NOTE | 2020-01-04 20:30 | NUR ---
Attempted to change patient's diaper but patient becoming combative (i.e. throwing punches and kicks at the nurse). Pt screaming too. Nurse to call Dr. Zafar to report of patient's current mental state.
--- NOTE | 2020-01-04 20:33 | NUR ---
Called Carlito Valero and informed about patient's current confused mental state and that patient is very combative. MD aware and ordered to give patient x1 dose of Geodon 10mg IM and ordered sitter 1:1 when available. MD aware son (Rory Rush) will be planning to stay with patient tonight. Informed Dr. Zafar that patient has not urinated since vinson taken out at 1345 today. MD ordered to bladder scan pt and if scan shows > 300ml urine, then insert vinson catheter. also stated he will look into patient's home meds to decide what meds he will allow to continue or not.
[2020-01-04] MEDS ORDERED: ZIPRASIDONE 20 MG VIAL IM ONE (21:15)
--- NOTE | 2020-01-04 22:10 | NUR ---
Son (Rory) left unit to buy some food and make sure gets home safely and stated he will be right back. Patient resting quietly after receiving x1 dose of Geodon 10mg IM.
[2020-01-04] MEDS ORDERED: HYDRALAZINE HCL 20 MG/ML VIAL IV PRN (22:15)
--- NOTE | 2020-01-04 22:35 | NUR ---
Bladder scan done on patient and revealed 497ml. Plan is to insert vinson catheter when son is back in patient's room to help watch over patient so that pt will not pull out his vinson catheter.
--- NOTE | 2020-01-04 22:58 | NUR ---
Son back and currently watching over patient in room. Pt still has some combative behavior especially when being turned in bed.
--- NOTE | 2020-01-04 23:20 | NUR ---
16 fr Vinson catheter successfully inserted on patient. 600 ml output immediately collected on vinson bag. Patient still quite aggressive and combative while vinson catheter was being inserted.
--- NOTE | 2020-01-04 23:55 | NUR ---
Patient sleeping comfortably at this time.
--- NOTE | 2020-01-05 01:25 | NUR ---
Patient checked in room and is currently sleeping. Son at bedside watching over pt.
[2020-01-05] MEDS: SODIUM CHLORIDE 0.9% 1000ML 1,000 ML IV SCH ×4 (01:45→21:30)
--- NOTE | 2020-01-05 03:43 | History and Physical ---
PRIMARY CARE DOCTOR: Lionel Topete MD CHIEF COMPLAINT: Altered mental status. HISTORY OF PRESENT ILLNESS: This is a 64-year-old male who was here last year for the same problem. The patient went deer hunting and became altered. The patient was subsequently diagnosed with acute kidney injury and rhabdomyolysis. The patient currently cannot give any history. I have spoken to his daughter over the phone. Apparently, he went deer hunting again this time. PAST MEDICAL AND SURGICAL HISTORY: 1. Hypertension. 2. Back surgeries. MEDICATIONS: Please see medication reconciliation form. ALLERGIES: NONE. SOCIAL HISTORY: Social smoker. FAMILY HISTORY: Heart disease. REVIEW OF SYSTEMS: Unable to obtain due to altered mental status. PHYSICAL EXAMINATION: VITAL SIGNS: Temperature 98.6, pulse 75, respiratory rate 18, blood pressure 154/66. GENERAL: Alter. SKIN: No rash. HEENT: Anicteric. Oropharynx is dry. LUNGS: Decreased breath sounds. HEART: Regular rate and rhythm. Normal S1, S2. GI: Abdomen is soft and nondistended. NEUROLOGIC: Awake, disoriented. PSYCHIATRIC: Calm. MUSCULOSKELETAL: Moving all extremities. LABORATORY DATA: Initial creatinine was 5.2, now down to 3.5. Initial creatine kinase was 2586, now down to 1931. White count 7, hemoglobin 11, platelet count 215. Head CT did not show any acute disease. ASSESSMENT AND PLAN: 1. Metabolic encephalopathy due to rhabdomyolysis and acute kidney injury. Both his creatinine and creatine kinase are getting better. We will continue to hydrate him with IV fluid. Hopefully his mental status will be better tomorrow. Last time, his altered mental status resolved on day #3, which will be tomorrow. 2. It looks like he is on Xarelto now at home. Once he is awake, we will inquire reason. 3. Hypertension. We will continue his Norvasc and metoprolol. 4. Lastly gastrointestinal and deep venous thrombosis prophylaxes, he probably still has Xarelto on his system. I have updated his daughter over the phone. Yiching MD TARIK Rodríguez/MONE /[phone] cc: [facility]
--- NOTE | 2020-01-05 04:50 | NUR ---
FOREST OFFICER (Celena) and nurse (Damien) attempted to help each other check patient's vital signs and change the diaper and clean pt. But patient is very agitated and combative (e.g. swings his elbows, punches with his fists and kicks with both legs) at this time. Son (Rory) at bedside witnessing how the patient is being physically aggressive at this time. Nurse informed telemetry office (via Victorina) that it would be quite impossible at this time to fix leads and change batteries of the telemetry box.
--- NOTE | 2020-01-05 05:30 | NUR ---
Dietary Services Director (Perla) attempted to draw AM labs from patient but patient refused and was getting combative again. Will pass on information to incoming dayshift.
--- NOTE | 2020-01-05 06:00 | NUR ---
Patient was repositioned and diaper changed but with help of holding both arms from son and nurse and GLUELINE WORKER changing diaper. Patient was moved up in bed for extra comfort. Patient still very aggressive, confused and combative whenever being moved or repositioned in bed.
--- NOTE | 2020-01-05 06:38 | NUR ---
Called Carlito Valero via phone to inform that AM labs (CBC, BMP, CK) were not successfully drawn due to patient's combativeness and complete refusal to be drawn. MD aware and stated he will think about his next plan for patient. MD aware that patient's son stayed with patient last night. Informed MD that Suzanna helped pt sleep but the moment he is being repositioned or touched for care, pt gets very combative and aggressive.
--- NOTE | 2020-01-05 07:31 | NUR ---
ASSUMED CARE. AWAKE AND ALERT. ACYANOTIC. RESTING IN BED. NO DISTRESS NOTED. URINARY KENNY PATENT WITH CLEAR YELLOW URINE DRAINING. CALL LIGHT IN REACH. SIDE RAILS UP X2. BED LOW AND LOCKED. PATIENT'S DAUGHTER JOHNNIE PRESENT AT BEDSIDE.
[2020-01-05 08:00] VITALS: BP 124/57
[2020-01-05 08:15] VITALS: BP 124/57
[2020-01-05] MEDS: AMLODIPINE BESYLATE 5 MG TAB PO SCH ×2 (08:52→16:30)
[2020-01-05] MEDS: METOPROLOL SUCCINATE 50 MG TAB XL PO SCH (08:52)
[2020-01-05 09:31] LABS: BASOPHILS % 0.3 % (0.0-1.0); EOSINOPHILS % 0.2 % (0.0-6.0); HEMATOCRIT 31.7 % (38.2-49.6); HEMOGLOBIN 10.2 g/dL (14.0-18.0); LYMPHOCYTES % 10.2 % (18.0-39.1); MEAN CORPUSCULAR HEMOGLOBIN 30.7 pg (28-32); MEAN CORPUSCULAR HGB CONC 32.2 g/dL (31-35); MEAN CORPUSCULAR VOLUME 95.5 fL (81-99); MONOCYTES # (AUTO) 0.8 (0.2-0.8); MONOCYTES % 7.9 % (4.4-11.3); NEUTROPHILS # (AUTO) 7.8 (2.1-6.9); NEUTROPHILS % 80.7 % (38.7-80.0); PLATELET COUNT 210 x10e3/uL (140-360); RED BLOOD COUNT 3.32 x10e6/uL (4.3-5.7); RED CELL DISTRIBUTION WIDTH 14.9 % (11.7-14.4)
[2020-01-05 09:55] LABS: ANION GAP 15.4 mmol/L (8-16); CALCIUM 8.7 mg/dL (8.4-10.2); CREATININE, SERUM 1.24 mg/dL (0.72-1.25); POTASSIUM 4.4 mmol/L (3.5-5.1)
[2020-01-05 12:39] VITALS: BP 138/50
[2020-01-05 16:38] VITALS: BP 137/70
--- NOTE | 2020-01-05 19:15 | NUR ---
Patient visited in room during nursing rounds. Patient is alert and oriented x3 at this time. He appears to have totally changed his demeanor to a more positive one. Son (Rory) at bedside. Trejo in place. IVF (NS at 100ml/hr) infusing. Patient has intermittent pain on back and will be medicated accordingly. Call estrada within reach.
[2020-01-05 19:30] VITALS: BP 135/68
[2020-01-05] MEDS: HYDROCODONE/APAP 5MG-325MG TAB PO PRN (20:00)
[2020-01-05 21:00] VITALS: BP 135/68
--- NOTE | 2020-01-05 22:26 | Progress Note ---
DATE: 01/05/2020 SUBJECTIVE: The patient is still a little confused, but much more awake than yesterday. Son is by the bedside. OBJECTIVE: VITAL SIGNS: Temperature 98.7, pulse 71, respiratory rate 22, blood pressure 135/68. GENERAL: No acute distress. SKIN: No rash. LUNGS: Clear. HEART: Regular rate and rhythm. Normal S1, S2. GI: Abdomen is soft, nondistended. NEUROLOGIC: Alert, but disoriented. PSYCHIATRIC: Calm. MUSCULOSKELETAL: Painless range of motion. LABORATORY DATA: White count 10, hemoglobin 10, platelet count 210. Creatinine is 1.24. CPK is 833. ASSESSMENT AND PLAN: 1. Metabolic encephalopathy, resolving. This is likely due to rhabdomyolysis and acute kidney injury. Both his creatinine and creatine kinase are continuing to get better. We will continue IV fluid. We will reassess his mental status tomorrow. 2. We will need to inquire whether he is on Xarelto at home and if so, why. 3. Hypertension. We will continue his Norvasc and metoprolol. 4. Chronic pain syndrome. 5. Gastrointestinal and deep vein thrombosis prophylaxis. He probably still has Xarelto in his system. MD TARIK Lacey/MONE /[phone]
[2020-01-06] VITALS: BP 139/58
[2020-01-06] MEDS: HYDROCODONE/APAP 5MG-325MG TAB PO PRN (02:15)
[2020-01-06 04:00] VITALS: BP 147/69
[2020-01-06] MEDS: SODIUM CHLORIDE 0.9% 1000ML 1,000 ML IV SCH (05:40)
--- NOTE | 2020-01-06 07:59 | NUR ---
ASSUMED CARE AT APPROXIMATELY 0715. AAOX3. ACYANOTIC. RESTING IN BED. NO DISTRESS NOTED. CALL LIGHT IN REACH. SIDE RAILS UP X2. BED LOW AND LOCKED. SON PRESENT AT BEDSIDE.
[2020-01-06 08:00] VITALS: BP 136/74
[2020-01-06 08:12] VITALS: BP 136/74
[2020-01-06] MEDS: AMLODIPINE BESYLATE 5 MG TAB PO SCH (09:17)
[2020-01-06] MEDS: METOPROLOL SUCCINATE 50 MG TAB XL PO SCH (09:18)
[2020-01-06 11:47] VITALS: BP 149/71
[2020-01-06] MEDS ORDERED: RIVAROXABAN 20 MG TABLET PO ONE (14:30)
--- NOTE | 2020-01-07 01:13 | Discharge Summary ---
PRIMARY CARE DOCTOR: Lionel Topete MD. FINAL DIAGNOSES: 1. Metabolic encephalopathy, present on admission due to rhabdomyolysis. 2. Acute kidney injury. SECONDARY DIAGNOSES: 1. Deep vein thrombosis. 2. Hypertension. CONSULTANTS: None. PROCEDURES/STUDIES PERFORMED: Head CT, which was benign. HISTORY: Per dictated H and P. HOSPITAL COURSE: The patient was admitted. The patient was hydrated. His CK came down nicely, creatine kinase from 2586 down to 833. His creatinine came down from 5.2 to 1.24. Finally, now his mental status is back to baseline. I have updated his family multiple times throughout the hospitalization. The patient was seen and examined today. It took 32 minutes total to discharge this patient. CONDITION ON DISCHARGE: Improved. DISCHARGE MEDICATIONS: Please see medication reconciliation form. The patient will follow up with his primary care doctor in one week. I have also updated his primary care doctor about this hospitalization. [facility] MD TARIK Rodríguez/MONE /[id number] cc: [facility] Gilbert Topete MD
== END 2020-01-06 15:53 | disposition home or self-care (01) | DRG 682 ==
LOC: ER 18:23 → ERHOLD 20:27 → MED/SURG 20:35 → MED/SURG3 01-04 16:23
PROVIDERS: ADMIT Internal Medicine; ATTEND Internal Medicine
DX: N17.9 Acute kidney failure, unspecified (principal); G93.41 Metabolic encephalopathy; M62.82 Rhabdomyolysis; I10 Essential (primary) hypertension; E78.5 Hyperlipidemia, unspecified; M54.9 Dorsalgia, unspecified; G89.4 Chronic pain syndrome; Z82.49 Family history of ischemic heart disease and other diseases of the circulatory system; Z79.01 Long term (current) use of anticoagulants; Z11.59 Encounter for screening for other viral diseases; Z86.718 Personal history of other venous thrombosis and embolism
CPT/HCPCS: 36415; 51700; 70450; 80048; 80053; 81001; 82550; 82553; 82948; 83605; 83880; 84484; 85025; 93005; 97139; 99284; J3486; J7030; U0002

== ENCOUNTER 2021-10-10 09:03 | Emergency (ER) | payer MEDICARE ==
[~2021-10-10] VITALS: Ht 170.2 cm; Wt 74.8 kg
[~2021-10-10 09:03] MED LIST changes: +BUMETANIDE1 MG PO; +METOPROLOL SUCC50 MG PO; +XARELTO20 MG PO
[2021-10-10] MEDS ORDERED: SODIUM CHLORIDE 0.9% 1000ML 1,000 ML IV STA (09:53)
[2021-10-10 09:59] LABS: BASOPHILS % 0.2 % (0.0-1.0); EOSINOPHILS % 0.2 % (0.0-6.0); HEMATOCRIT 35.6 % (38.2-49.6); HEMOGLOBIN 11.5 g/dL (14.0-18.0); LYMPHOCYTES # (AUTO) 0.9 (1.0-3.2); LYMPHOCYTES % 17.9 % (18.0-39.1); MEAN CORPUSCULAR HGB CONC 32.3 g/dL (31-35); MEAN CORPUSCULAR VOLUME 89.7 fL (81-99); MONOCYTES # (AUTO) 0.4 (0.2-0.8); MONOCYTES % 8.3 % (4.4-11.3); NEUTROPHILS # (AUTO) 3.7 (2.1-6.9); NEUTROPHILS % 72.8 % (38.7-80.0); PLATELET COUNT 302 x10e3/uL (140-360); RED BLOOD COUNT 3.97 x10e6/uL (4.3-5.7); RED CELL DISTRIBUTION WIDTH 15.6 % (11.7-14.4)
[2021-10-10 10:15] LABS: INR 1.09; PROTHROMBIN TIME 15.1 seconds (11.9-14.5)
[2021-10-10 10:16] LABS: PARTIAL THROMBOPLASTIN TIME 29.2 seconds (23.8-35.5)
[2021-10-10 10:19] LABS: ANION GAP 14.7 mmol/L (8-16); CREATININE, SERUM 1.08 mg/dL (0.72-1.25); POTASSIUM 3.7 mmol/L (3.5-5.1)
[2021-10-10 10:20] LABS: ALBUMIN 3.8 g/dL (3.5-5.0); ALBUMIN/GLOBULIN RATIO 1.2 (0.8-2.0); CALCIUM 8.9 mg/dL (8.4-10.2); MAGNESIUM 1.8 MG/DL (1.3-2.1)
[2021-10-10 10:26] LABS: CREATINE KINASE MB 4.6 ng/mL (0-5.0)
[2021-10-10 11:11] LABS: CLARITY,URINE CLEAR (CLEAR); COLOR,URINE YELLOW (YELLOW); KETONES,URINE NEGATIVE (NEGATIVE); LEUKOCYTE ESTERASE ,URINE NEGATIVE (NEGATIVE); NITRITE,URINE NEGATIVE (NEGATIVE); PROTEIN,URINE DIPSTICK 1+ (NEGATIVE); URINE UROBILINOGEN 0.2 mg/dL (0.2 - 1)
[2021-10-10 11:15] LABS: AMPHETAMINES SCREEN,URINE NEGATIVE (NEGATIVE); BENZODIAZEPINES SCREEN,URINE NEGATIVE (NEGATIVE); PHENCYCLIDINE SCREEN,URINE NEGATIVE (NEGATIVE)
[2021-10-10 11:43] LABS: BACTERIA,URINE FEW /HPF; EPITHELIAL CELLS,URINE FEW /LPF; RBC,URINE 0-5 /HPF (0-5); WBC,URINE (MAN) 0-5 /HPF (0-5)
[2021-10-10 13:01] VITALS: BP 169/77
== END 2021-10-10 12:58 | disposition home or self-care (01) ==
LOC: ER 09:10
DX: E86.0 Dehydration (principal); I10 Essential (primary) hypertension; M54.9 Dorsalgia, unspecified; G89.29 Other chronic pain; Z20.822 Contact with and (suspected) exposure to COVID-19; R94.31 Abnormal electrocardiogram [ECG] [EKG]
CPT/HCPCS: 36415; 70450; 71045; 80053; 80307; 80320; 80329; 81001; 82550; 82553; 83735; 84484; 85025; 85610; 85730; 87086; 93005; 99284; J7030; U0002